=== PATIENT | male | born 1960 | race Caucasian/White ===

== ENCOUNTER 2017-09-14 16:46 | Inpatient (IN) ==
--- NOTE | 2017-09-14 17:09 | Emergency Department Note ---
Disposition Clinical Impression: Cellulitis of left leg Disposition: Admitted As Inpatient Condition: Fair Referrals: Marquis Kwok MD [Primary Care Provider] - Forms: ED Satisfaction Letter Time of Disposition: 20:08 Extremity Problem HPI - General Chief complaint: ED Extremity Problem,Nontraumatic Stated complaint: Left leg is infected with green D/C Time Seen by Provider: 09/14/17 17:01 Source: patient, family Mode of arrival: ambulatory Limitations: no limitations Nursing Notes Reviewed: Yes Vital Signs Reviewed: Yes - History of Present Illness HPI Narrative: 57-year-old who presents with swelling to left greater than right lower extremity with redness and drainage from a wound on the left leg. He was seen at though wound clinic 2 days ago. States the drainage and redness has gotten worse. Pt Subjective Complaint: extremity pain, extremity swelling Onset (ago): day(s) Consistency: constant Injury Location: left, right, lower extremity Pain Scale: 4 Improves with: nothing Worsens with: palpation Associated symptoms: Reports: denies other symptoms - Related Data Home Medications Medication Instructions Recorded Confirmed Amlodipine Besylate 20 mg PO BID 12/27/15 09/11/17 Aspirin 325 mg PO DAILY 12/27/15 09/11/17 Atorvastatin [Lipitor] 40 mg PO HS 12/27/15 09/11/17 Enalapril Maleate [Vasotec] 20 mg PO BID 12/27/15 09/11/17 Furosemide [Lasix] 20 mg PO DAILY 12/27/15 09/11/17 Metoprolol [Lopressor] 25 mg PO BID 12/27/15 09/11/17 metFORMIN [Glucophage] 1,000 mg PO BIDWM 12/27/15 09/11/17 Previous Rx's Medication Instructions Recorded Compression Socks, Medium [Futuro 1 each MC QDPC #1 each 06/07/17 Restoring] Allergies Allergy/AdvReac Type Severity Reaction Status Date / Time acetaminophen [From Percocet] AdvReac Itching Verified 09/11/17 10:23 Oxycodone [From Percocet] AdvReac Itching Verified 09/11/17 10:23 All systems ED: reviewed and negative except as stated. Constitutional: Denies: fever, chills, weakness, weight change Eyes: Denies: eye pain, eye discharge, vision change ENT ED: Denies: ear pain, throat pain, dental pain, hearing loss, epistaxis, congestion, dysphagia Cardiovascular: Denies: chest pain, palpitations, dyspnea on exertion, edema, syncope Respiratory: Denies: cough, dyspnea, wheezes, hemoptysis, stridor Gastrointestinal: Denies: abdominal pain, nausea, vomiting, diarrhea, constipation, hematemesis, melena, hematochezia Genitourinary: Denies: urgency, dysuria, frequency, hematuria Musculoskeletal: Denies: back pain, neck pain, arthralgia, myalgia Integumentary: Reports: rash, other (An anterior left leg). Denies: abrasion, lesions Neurological: Denies: headache, weakness, numbness, paresthesias, confusion, abnormal gait, vertigo Psychiatric: Denies: anxiety, depression, suicidal thoughts, homicidal thoughts , auditory hallucinations, visual hallucinations Endocrine: Denies: fatigue Hematological/Lymphatic: Denies: easy bleeding, easy bruising Allergic/Immunologic: Denies: facial swelling, urticaria Past Medical History - Past Medical History Medical history: Reports: CHF, COPD, diabetes, GERD, hyperlipidemia, hypertension, myocardial infarction Surgical history: Reports: angioplasty/stent, orthopedic, other, other Psychiatric history: Reports: no psych history - Social History Smoking Status: Current every day smoker Smokeless Tobacco Status: No Alcohol use: Reports: none Drug use: Reports: none Physical Exam - General Limitations: no limitations General appearance: alert - Head Head exam: atraumatic, normocephalic, normal inspection - Eye Eye exam: Present: normal appearance, PERRL, EOMI - ENT ENT exam: normal exam, normal oropharynx, mucous membranes moist - Neck Neck exam: Present: normal inspection, full ROM, trachea midline - Chest Chest inspection: Present: normal inspection, symmetric chest wall rise - Respiratory Respiratory exam: Present: normal lung sounds bilaterally - Cardiovascular Cardiovascular exam: Present: regular rate, normal rhythm, normal heart sounds - Abdominal Exam Abdominal exam: Present: soft, Non-Tender. Absent: tenderness, distention, guarding, rebound, rigidity - Expanded Lower Extremity Exam Lower leg exam: Present: swelling, erythema, other (Open wound draining green material on the left lower extremity.) Neurovascular/Tendon exam: Absent: motor deficit, sensory deficit, tendon deficit Gait: observed and normal - Back Exam Back exam: Present: normal inspection, full ROM. Absent: tenderness - Neurological Exam Neurological exam: Present: alert, oriented X3 - Psychiatric Psychiatric exam: Present: normal affect, normal mood - Skin Skin exam: Present: warm, dry, intact, normal color Course - Reevaluation(s) Reevaluation #1: 57-year-old diabetic with redness of the legs gotten progressively worse workup here included culture Doppler which was negative. Her admit for IV antibiotics. Time: 20:08 - Consultations Consultation #1: Discussed with Dr. yAon, admit. Time: 20:09 Vital Signs Temperature 98 F 09/14/17 16:48 Pulse Rate 113 09/14/17 16:48 Respiratory Rate 18 09/14/17 16:48 Blood Pressure 176/81 09/14/17 16:48 O2 Sat by Pulse Oximetry 97 09/14/17 16:48 Temperature 98 F 09/14/17 16:48 Pulse Rate 113 09/14/17 16:48 Respiratory Rate 18 09/14/17 16:48 Blood Pressure 176/81 09/14/17 16:48 O2 Sat by Pulse Oximetry 97 09/14/17 16:48 Oxygen Delivery Oxygen Delivery Room Air Extremity Problem, Nontraumati - Lab Data Lab results reviewed: Yes I reviewed the patient's lab results. Result diagrams: 09/14/17 17:32 09/14/17 18:36 Lab Results 09/14/17 09/14/17 09/14/17 Range/Units 17:32 17:32 17:32 WBC 9.8 (4.3-11.1) K/mcL RBC 5.99 H (4.19-5.50) M/mcL Hgb 16.5 (12.9-16.9) g/dL Hct 51.4 H (37.5-50.1) % MCV 85.8 (83.0-100.0) fL MCH 27.5 L (28.0-33.3) pg MCHC 32.1 (31.6-35.5) g/dL RDW 17.7 H (11.5-14.5) % Plt Count 290 (140-400) K/mcL MPV 10.0 (9.4-12.4) fL Immature Gran % 0.5 (0-4) % Seg Neutrophils % 75.5 % Lymphocytes % 13.8 % Monocytes % 6.2 % Eosinophils % 3.5 % Basophils % 0.5 % Neutrophils # 7.4 (1.6-8.9) K/mcL Lymphocytes # 1.4 (0.6-4.6) K/mcL Monocytes # 0.6 (0.0-1.3) K/mcL Eosinophils # 0.3 (0.0-0.6) K/mcL Basophils # 0.1 (0.0-0.2) K/mcL Immature Plt Fraction 5.2 (1.1-6.1) % ESR 34 H (0-10) mm/hr Sodium (136-145) mEq/L Potassium (3.5-5.1) mEq/L Chloride (98-107) mEq/L Carbon Dioxide (23-29) mEq/L BUN (6-20) mg/dL Creatinine (0.70-1.30) mg/dL Est GFR ( Amer) (> 60) Est GFR (Non-Af Amer) (> 60) BUN/Creatinine Ratio (6-26) Glucose (70-105) mg/dL Calculated Osmolality (280-300) Calcium (8.6-10.3) mg/dL Specimen Rejected Hemolyzed 09/14/17 Range/Units 18:36 WBC (4.3-11.1) K/mcL RBC (4.19-5.50) M/mcL Hgb (12.9-16.9) g/dL Hct (37.5-50.1) % MCV (83.0-100.0) fL MCH (28.0-33.3) pg MCHC (31.6-35.5) g/dL RDW (11.5-14.5) % Plt Count (140-400) K/mcL MPV (9.4-12.4) fL Immature Gran % (0-4) % Seg Neutrophils % % Lymphocytes % % Monocytes % % Eosinophils % % Basophils % % Neutrophils # (1.6-8.9) K/mcL Lymphocytes # (0.6-4.6) K/mcL Monocytes # (0.0-1.3) K/mcL Eosinophils # (0.0-0.6) K/mcL Basophils # (0.0-0.2) K/mcL Immature Plt Fraction (1.1-6.1) % ESR (0-10) mm/hr Sodium 139 (136-145) mEq/L Potassium 4.0 (3.5-5.1) mEq/L Chloride 102 (98-107) mEq/L Carbon Dioxide 33 H (23-29) mEq/L BUN 12 (6-20) mg/dL Creatinine 0.72 (0.70-1.30) mg/dL Est GFR ( Amer) > 60 (> 60) Est GFR (Non-Af Amer) > 60 (> 60) BUN/Creatinine Ratio 17 (6-26) Glucose 90 (70-105) mg/dL Calculated Osmolality 287 (280-300) Calcium 9.2 (8.6-10.3) mg/dL Specimen Rejected - Radiology Data Radiology results reviewed: Yes I reviewed the patient's radiology results. Tibia/Fibula X-Ray 09/14/17 17:01 IMPRESSION: Diffuse soft tissue swelling. No acute osseous abnormality. D/ / Christophe Larson MD / Christophe Larson MD Interpreting Provider: Christophe Larson MD
[2017-09-14 18:06] LABS: Basophils # 0.1 K/mcL (0.0-0.2); Basophils % 0.5 %; Eosinophils # 0.3 K/mcL (0.0-0.6); Eosinophils % 3.5 %; Hematocrit 51.4 % (37.5-50.1); Hemoglobin 16.5 g/dL (12.9-16.9); Immature Granulocytes % 0.5 % (0-4); Immature Platelets 5.2 % (1.1-6.1); Lymphocytes # 1.4 K/mcL (0.6-4.6); Lymphocytes % 13.8 %; Mean Corpuscular HGB Conc 32.1 g/dL (31.6-35.5); Mean Corpuscular Hemoglobin 27.5 pg (28.0-33.3); Mean Corpuscular Volume 85.8 fL (83.0-100.0); Monocytes # 0.6 K/mcL (0.0-1.3); Monocytes % 6.2 %; Neutrophils # 7.4 K/mcL (1.6-8.9); Platelet Count 290 K/mcL (140-400); Red Blood Count 5.99 M/mcL (4.19-5.50); Red Cell Distribution Width 17.7 % (11.5-14.5); Segmented Neutrophils % 75.5 %
[2017-09-14 19:08] LABS: BUN/Creatinine Ratio 17 (6-26); Blood Urea Nitrogen 12 mg/dL (6-20); Calcium 9.2 mg/dL (8.6-10.3); Carbon Dioxide 33 mEq/L (23-29); Chloride 102 mEq/L (98-107); Glucose 90 mg/dL (70-105); Osmolality,Calculated 287 (280-300); Sodium 139 mEq/L (136-145); eGFR For African Americans > 60 (> 60); eGFR For Non-African Americans > 60 (> 60)
[2017-09-14] MEDS ORDERED: Piperacillin/Tazobactam 3.375 GM in 0.9 % Sodium Chloride Mini Bag 100 ML IVPB ONE (20:20)
[2017-09-14] MEDS ORDERED: Acetaminophen 325 MG TABLET PO PRN (23:39)
[2017-09-14] MEDS ORDERED: Naloxone 0.4 MG/ML INJ IVP PRN (23:39)
[2017-09-14] MEDS ORDERED: 0.9 % Sodium Chloride 1,000 ML IVC SCH (23:45)
--- NOTE | 2017-09-14 23:45 | Internal Med History&Physical ---
Date of Encounter: 09/15/17 Time of Encounter: 23:45 Assessment and Plan (1) Cellulitis of left leg Current visit: Yes Status: Acute 57/male Known to have a multiple comorbid conditions. Evaluated 2 days back for his left leg cellulitis in the wound care clinic as outpatient. Patient failed outpatient oral antibiotics trial. On examination: Purulent discharge greenish yellow in color from the left lower extremity wound. Occasional polyphonic rhonchi heard. Assessment: Left lower leg cellulitis/wound which has failed outpatient oral antibiotics. Patient needs intravenous antibiotics. Plan: Admit as inpatient. Diabetic diet. Intravenous vancomycin: Pharmacy to adjust the dose. Intravenous Zosyn. Surgical consult for possible debridement. Wound care consult. Close monitoring of the patient. Plan of care discussed with the patient. (2) COPD (chronic obstructive pulmonary disease) Current visit: No Status: Acute Stable for now Qualifiers: COPD type: COPD with acute exacerbation Qualified Code(s): J44.1 - Chronic obstructive pulmonary disease with (acute) exacerbation (3) Diabetes mellitus Current visit: No Status: Acute Patient is noncompliant with his diabetic medications. We will continue recommendations from subcutaneous insulin order set. Qualifiers: Diabetes mellitus type: type 2 Diabetes mellitus complication status: with unspecified complications Diabetes mellitus care home insulin use: without ferry terminal agent use Qualified Code(s): E11.8 - Type 2 diabetes mellitus with unspecified complications (4) Hypertension Current visit: No Status: Acute Patient's blood pressure is very well controlled. We will resume home medications. Qualifiers: Hypertension type: essential hypertension Qualified Code(s): I10 - Essential (primary) hypertension (5) DVT prophylaxis Current visit: No Status: Acute Heparin Decision-making: This patient has a moderate to severe risk of worsening in spite of being on appropriate medication due to the underlying chronic comorbid conditions Internal Medicine - H&P: HPI Chief complaint: Left extremity pain Admitted From: Emergency Dept Plans for Post Hospital Care: Home History of present illness: PCP: Dr. Kwok History of past medical illness: Diabetes, hypertension, dyslipidemia, COPD, hypertension, coronary artery disease, peripheral vascular disease History of present medical illness: Patient was complaining of worsening purulent discharge from the left extremity. Patient is known to have a wound on his left extremity for more than one week. Patient was evaluated in the wound care clinic 2 days back. Patient claims that since last 24-36 hours the discharge from the wound is getting yellowish-green in color. Patient has a bilateral edema feet. Left is worse than right. In view of this persistent new green coloration of the discharge patient was concerned and that is the reason he came to emergency room for further evaluation. Patient denies chest pain, nausea, vomiting, abdominal pain, dizziness and diarrhea. Workup in the emergency room: Patient was evaluated in the emergency room. X- ray of left extremity did not show any obvious osteomy. Osteoarthritis. Reason for admission: Failed outpatient oral antibiotic treatment. Patient needs intravenous antibiotics. Past Med Surg Social Fam HX - Past Medical History Medical history: CHF, COPD, diabetes, GERD, hyperlipidemia, hypertension, myocardial infarction Psychiatric history: no psych history - Past Surgical History Surgical History: angioplasty/stent, orthopedic, other, other - Social History Smoking Status: Current every day smoker Smokeless Tobacco Status: No Alcohol use: none Drug use: none - Family History Father Adopted: No Family Member Ethnicity: Non- Living Status: Hx Family Cardiac Disorders: Yes (Heart fAILURE) Hx Family Respiratory Disorders: No Hx Family Cancer: No Hx Family GI Disorders: No Hx Family Endocrine Disorder: Yes (Diabetic) Hx Family Neuromuscular Disorders: No Hx Family Neurologic Disorders: No Hx Family HEENT Disorders: No Hx Family Autoimmune Disorders: No Mother Family Member Ethnicity: Non- Living Status: Hx Family Cardiac Disorders: Yes (CHF) Hx Family Respiratory Disorders: No Hx Family Cancer: Yes (breast) Hx Family GI Disorders: No Hx Family Endocrine Disorder: No Hx Family Neuromuscular Disorders: No Hx Family Neurologic Disorders: Yes (Dementia) Hx Family HEENT Disorders: No Hx Family Autoimmune Disorders: No Internal Medicine - H&P: Meds Amlodipine Besylate 20 mg PO BID 12/27/15 [History] Aspirin 325 mg PO DAILY 12/27/15 [History] Atorvastatin [Lipitor] 40 mg PO HS 12/27/15 [History] Enalapril Maleate [Vasotec] 20 mg PO BID 12/27/15 [History] Furosemide [Lasix] 20 mg PO DAILY 12/27/15 [History] Metoprolol [Lopressor] 25 mg PO BID 12/27/15 [History] metFORMIN [Glucophage] 1,000 mg PO BIDWM 12/27/15 [History] Compression Socks, Medium [Futuro Restoring] 1 each MC QDPC #1 each 06/07/17 [Rx ] 3 Allergy/AdvReac Type Severity Reaction Status Date / Time acetaminophen [From Percocet] AdvReac Itching Verified 09/11/17 10:23 Oxycodone [From Percocet] AdvReac Itching Verified 09/11/17 10:23 All Systems PM: A 10-system review of systems was performed and is negative for pertinent findings except as documented above in the HPI. - Constitutional Constitutional: no chills, no fever(s), no night sweats - EENT Eyes: no change in vision, no discharge, no pain, no photophobia Ears: no ear discharge, no ear pain, no tinnitus Nose, mouth and throat: no dysphagia, no nasal discharge, no neck pain, no sore throat - Cardiovascular Cardiovascular ROS IM: no chest pain, no diaphoresis, no dyspnea, no lightheadedness, no palpitations, no syncope - Respiratory Respiratory: no cough, no dyspnea, no wheezing, no excessive phlegm production - Gastrointestinal Gastrointestinal: no abdominal pain, no diarrhea, no hematemesis, no hematochezia, no melena, no nausea, no vomiting - Musculoskeletal Musculoskeletal ROS IM: no numbness, no tingling - Integumentary Integumentary IM: no rash, no unusual bruising - Neurological Neurological ROS: no confusion, no convulsions, no focal weakness, no numbness, no tingling, no tremor(s) - Hematologic/Lymphatic Hematologic/Lymphatic: no easy bruising - Constitutional Vitals: Temp Pulse Resp BP Pulse Ox 98.2 F 96 16 150/84 84 09/14/17 22:37 09/14/17 22:37 09/14/17 22:37 09/14/17 22:37 09/14/17 22:37 General appearance: Present: A&O X 3, pleasant, no acute distress, answers questions appropriately - Head Head exam: Present: atraumatic, normocephalic - Eye Eye exam: Present: PERRL, conjuntiva pink, sclera anicteric Pupils: Present: PERRL - Neck Neck exam general surgery: Present: supple, trachea midline. Absent: lymphadenopathy - Respiratory Respiratory exam: Present: CTAB. Absent: accessory muscle use, rales, rhonchi, wheezes - Cardiovascular Cardiovascular exam: Present: RRR, +S1, +S2. Absent: diastolic murmur, gallop, rubs, systolic murmur - GI/Abdominal GI/Abdominal exam: Present: normal bowel sounds, soft, no peritoneal signs. Absent: distended, tenderness - Extremities Exam Extremities exam: Present: warm, radial pulses palpable and symmetrical. Absent : calf tenderness, cyanotic, pedal edema Additional comments: Patient is a left lower extremity open wound. - Neurological Exam Neurological exam: Present: CN II-XII intact, oriented X3, no focal deficits. Absent: pronater drift, facial droop, speech deficit - Skin Skin exam: Present: dry, intact Internal Med - H&P Results - Labs CBC & Chem 7: 09/15/17 01:00 09/15/17 01:00
[2017-09-14] MEDS ORDERED: Dextrose Gel 15 GM/37.5 ML TUBE PO PRN ×2 (23:48)
[2017-09-14] MEDS ORDERED: *HR* Dextrose 50 % in Water (Syg) 50 ML SYRINGE IVP PRN (23:48)
[2017-09-14] MEDS ORDERED: D5% in Water 1,000 ML IVC PRN (23:48)
[2017-09-15 02:01] LABS: Basophils # 0.1 K/mcL (0.0-0.2); Basophils % 0.5 %; Eosinophils # 0.3 K/mcL (0.0-0.6); Hematocrit 52.7 % (37.5-50.1); Hemoglobin 16.3 g/dL (12.9-16.9); Immature Granulocytes % 0.5 % (0-4); Lymphocytes # 1.4 K/mcL (0.6-4.6); Lymphocytes % 12.2 %; Mean Corpuscular HGB Conc 30.9 g/dL (31.6-35.5); Mean Corpuscular Hemoglobin 27.1 pg (28.0-33.3); Mean Corpuscular Volume 87.5 fL (83.0-100.0); Mean Platelet Volume 10.4 fL (9.4-12.4); Monocytes # 0.8 K/mcL (0.0-1.3); Monocytes % 7.1 %; Neutrophils # 8.5 K/mcL (1.6-8.9); Platelet Count 290 K/mcL (140-400); Red Blood Count 6.02 M/mcL (4.19-5.50); Red Cell Distribution Width 17.6 % (11.5-14.5); Segmented Neutrophils % 76.7 %
[2017-09-15 02:08] LABS: INR 1.2; Prothrombin Time 12.7 Seconds (9.4-12.1)
[2017-09-15 02:10] LABS: Activated Partial Thrombo Time 24.8 Seconds (26.0-36.0)
[2017-09-15 02:35] LABS: Alanine Aminotransferase 12 Units/L (7-52); Albumin/Globulin Ratio 1.1 (1.1-2.2); Alkaline Phosphatase 107 Units/L (34-104); Aspartate Amino Transferase 14 Units/L (13-39); BUN/Creatinine Ratio 16 (6-26); Bilirubin,Total 0.7 mg/dL (0.3-1.0); Blood Urea Nitrogen 11 mg/dL (6-20); Calcium 9.4 mg/dL (8.6-10.3); Carbon Dioxide 31 mEq/L (23-29); Chloride 102 mEq/L (98-107); Chol/HDL Ratio 3.9 (0-4.9); Cholesterol 97 mg/dL (< 200); Globulin 3.5 g/dL (2.4-3.5); Glucose 86 mg/dL (70-105); HDL Cholesterol 25 mg/dL (40-59); LDL Cholesterol,Calculated 56 mg/dL (0-99); Magnesium 1.8 mg/dL (1.6-2.6); Osmolality,Calculated 289 (280-300); Potassium 3.9 mEq/L (3.5-5.1); Sodium 140 mEq/L (136-145); Total Protein 7.5 g/dL (6.4-8.9); Triglycerides 78 mg/dL (< 150); eGFR For African Americans > 60 (> 60); eGFR For Non-African Americans > 60 (> 60)
[2017-09-15] MEDS: *HR* Heparin 5,000 UNIT/ML VIAL SQ SCH ×4 (04:07→23:16)
[2017-09-15] MEDS: Insulin LISPRO 300 UNITS/3 ML VIAL SQ SCH ×3 (08:10→16:16)
[2017-09-15] MEDS ORDERED: AMLODIPINE BESYLATE 20 MG PO SCH (09:00)
[2017-09-15] MEDS ORDERED: Aspirin 81 MG TAB.CHEW PO SCH (09:00)
[2017-09-15] MEDS: Aspirin 325 MG TABLET PO SCH (09:04)
[2017-09-15] MEDS: Lisinopril 20 MG TABLET PO SCH ×2 (09:04→20:10)
[2017-09-15] MEDS: Furosemide 20 MG TABLET PO SCH (09:04)
--- NOTE | 2017-09-15 10:24 | Internal Med Progress Note ---
Date of Encounter: 09/15/17 Time of Encounter: 10:20 - Assessment and plan (1) Cellulitis of left leg Current Visit: Yes Status: Acute Assessment and plan: Bilateral lower extremity cellulitis, failed outpatient treatment with Augmentin and Keflex. We will continue IV vancomycin and Zosyn. He had negative DVT from Doppler on September 14. We will continue Lasix for lower extremity edema (2) COPD (chronic obstructive pulmonary disease) Current Visit: No Status: Acute Assessment and plan: Chronic hypoxic respiratory failure from COPD on 2 L nasal cannula at home. Currently no active wheezing, stable Qualifiers: COPD type: COPD with acute exacerbation Qualified Code(s): J44.1 - Chronic obstructive pulmonary disease with (acute) exacerbation (3) Diabetes mellitus Current Visit: No Status: Acute Assessment and plan: Home medications and a sliding scale Qualifiers: Diabetes mellitus type: type 2 Diabetes mellitus complication status: with unspecified complications Diabetes mellitus fpc insulin use: without termite technician use Qualified Code(s): E11.8 - Type 2 diabetes mellitus with unspecified complications (4) Hypertension Current Visit: No Status: Acute Assessment and plan: BP is well controlled to continue home medication Qualifiers: Hypertension type: essential hypertension Qualified Code(s): I10 - Essential (primary) hypertension (5) DVT prophylaxis Current Visit: No Status: Acute Assessment and plan: heparin SC, doppler was negative for DVT (6) CAD (coronary artery disease) Current Visit: No Status: Chronic Assessment and plan: Continue home medication Qualifiers: Coronary Disease-Associated Artery/Lesion type: [place] artery [place] vs. transplanted heart: [place] heart Associated angina: without angina Qualified Code(s): I25.10 - Atherosclerotic heart disease of [place] coronary artery without angina pectoris - Time Spent With Patient 25 - 35 minutes - Subjective Interval history: History of past medical illness: Diabetes, hypertension, dyslipidemia, COPD, hypertension, coronary artery disease, peripheral vascular disease Patient was complaining of worsening purulent discharge from the left extremity. Patient is known to have a wound on his left extremity for more than one week. Patient was evaluated in the wound care clinic 2 days back he was placed on augmentin and keflex, failed moutpatient treatment. Patient claims that since last 24-36 hours the discharge from the wound is getting yellowish-green in color. Patient has a bilateral edema feet. Patient waas admitted for b/l leg cellulitis Patient is doing okay, afebrile. Patient reported that she has worsening bilateral lower extremity edema over the last 2 weeks. She he has COPD on 2 L nasal cannula at home and limited mobility. patient had negative Doppler and ruled out DVT. We will continue IV Zosyn and vancomycin for lower extremity cellulitis. Wound care also already consult.. - Constitutional Vitals: Temp Pulse Resp BP Pulse Ox 98.4 F 91 18 144/82 90 09/15/17 06:45 09/15/17 06:45 09/15/17 06:45 09/15/17 06:45 09/15/17 06:45 General appearance: Present: A&O X 3, pleasant, no acute distress, answers questions appropriately Exam: CONSTITUTIONAL: patient appears as an age appropriate male in no acute distress. EYES Clear sclerae, bilateral pupils are equal, reactive to light. EMOI. RESPIRATORY: No accessory muscle use, bilateral clear to auscultation, no wheezing, no crackles/rales. CARDIOVASCULAR: Regular heart rate, normal S1 and S2, no murmurs GASTROINTESTINAL: bowel sounds present, soft, no tenderness. MUSCULOSKELETAL: Joints in normal range of motion, no clubbing, +++ edema and redness, no cyanosis. Bilateral peripheral pulses 2+. NEUROLOGIC: CN II to XII are grossly intact, no focal neurological deficit. Internal Medicine: Result - Labs CBC & Chem 7: 09/15/17 01:00 09/15/17 01:00 Labs: Short CBC 09/15/17 Range/Units 01:00 WBC 11.1 (4.3-11.1) K/mcL Hgb 16.3 (12.9-16.9) g/dL Hct 52.7 H (37.5-50.1) % Plt Count 290 (140-400) K/mcL Neutrophils # 8.5 (1.6-8.9) K/mcL BMP 09/15/17 01:00 Sodium 140 Potassium 3.9 Chloride 102 Carbon Dioxide 31 H BUN 11 Creatinine 0.68 L Glucose 86 Calcium 9.4 Cardiac Enzymes 09/15/17 09/15/17 Range/Units 01:00 05:34 Troponin I < 0.03 < 0.03 (< 0.04) ng/mL Liver Function 09/15/17 Range/Units 01:00 Total Bilirubin 0.7 (0.3-1.0) mg/dL AST 14 (13-39) Units/L ALT 12 (7-52) Units/L Alkaline Phosphatase 107 H (34-104) Units/L Albumin 4.0 (3.5-5.7) g/dL - ABG Interpretation ABG results: PT/INR, D-dimer PT 12.7 Seconds (9.4-12.1) H 09/15/17 01:00 Consult Discharge Plan - Plan Referrals: Marquis Kwok MD [Primary Care Provider] -
[2017-09-16] MEDS: *HR* Heparin 5,000 UNIT/ML VIAL SQ SCH ×2 (07:29→16:04)
[2017-09-16] MEDS: Insulin LISPRO 300 UNITS/3 ML VIAL SQ SCH ×3 (07:29→18:28)
[2017-09-16] MEDS: Furosemide 20 MG TABLET PO SCH (07:30)
[2017-09-16] MEDS: Lisinopril 20 MG TABLET PO SCH ×2 (07:30→22:03)
[2017-09-16] MEDS: Aspirin 325 MG TABLET PO SCH (07:30)
--- NOTE | 2017-09-16 17:26 | Internal Med Progress Note ---
Date of Encounter: 09/16/17 Time of Encounter: 12:45 - Assessment and plan (1) Cellulitis of left leg Current Visit: Yes Status: Acute Assessment and plan: Somewhat improving. Continue broad spectrum antibiotics- vancomycin and Zosyn. Lower extremity elevation. Local wound care for left leg ulcer with silver calcium alginate, dry dressing. Supportive care. Preliminary Wound culture grows staph aureus, follow up final culture. (2) COPD (chronic obstructive pulmonary disease) Current Visit: Yes Status: Chronic Assessment and plan: Not in acute exacerbation. Continue bronchodilators, inhaled corticosteroids and supplemental oxygen. Patient is being provided with a prescription for concentrator and portable home oxygen. Qualifiers: COPD type: unspecified COPD Qualified Code(s): J44.9 - Chronic obstructive pulmonary disease, unspecified (3) Diabetes mellitus Current Visit: Yes Status: Chronic Assessment and plan: Blood sugars noted to be well controlled. Continue Accu-Chek blood glucose monitoring with sliding scale insulin. Diabetic diet. Qualifiers: Diabetes mellitus type: type 2 Diabetes mellitus complication status: with unspecified complications Diabetes mellitus [facility] insulin use: without technician terminal and repeater use Qualified Code(s): E11.8 - Type 2 diabetes mellitus with unspecified complications (4) Hypertension Current Visit: Yes Status: Chronic Qualifiers: Hypertension type: essential hypertension Qualified Code(s): I10 - Essential (primary) hypertension (5) Venous ulcer of left leg Current Visit: Yes Status: Chronic Assessment and plan: Follows with wound care clinic. (6) CAD (coronary artery disease) Current Visit: Yes Status: Chronic Qualifiers: Coronary Disease-Associated Artery/Lesion type: [place] artery [place] vs. transplanted heart: [place] heart Associated angina: without angina Qualified Code(s): I25.10 - Atherosclerotic heart disease of [place] coronary artery without angina pectoris - Subjective Interval history: Reports feeling better. Improving redness and pain in right leg. No fever, chills, shortness of breath, vomiting or diarrhea. - Constitutional Vitals: Temp Pulse Resp BP Pulse Ox 98.7 F 94 18 134/73 90 09/16/17 15:39 09/16/17 15:39 09/16/17 15:39 09/16/17 15:39 09/16/17 15:39 General appearance: Present: A&O X 3, pleasant, no acute distress, answers questions appropriately Exam: Erythematous confluent hives on the right maxillary and mandibular areas of face - Respiratory Respiratory exam: Present: CTAB (Bilateral coarse breath sounds, scattered rhonchi). Absent: accessory muscle use, rales, rhonchi, wheezes - Cardiovascular Cardiovascular exam: Present: RRR, +S1, +S2. Absent: diastolic murmur, gallop, rubs, systolic murmur - GI/Abdominal GI/Abdominal exam: Present: normal bowel sounds, soft, no peritoneal signs. Absent: distended, tenderness - Extremities Exam Extremities exam: Present: full ROM, pedal edema, warm, radial pulses palpable and symmetrical. Absent: calf tenderness, cyanotic Additional comments: Bilateral 3+ pitting pedal edema, erythema and warmth over her anterior legs along with dry flaky skin Left leg-distal anterior area with dry small venous ulcer - Neurological Exam Neurological exam: Present: CN II-XII intact, oriented X3, no focal deficits. Absent: pronater drift, facial droop, speech deficit Internal Medicine: Result - Labs CBC & Chem 7: 09/15/17 01:00 09/15/17 01:00 - ABG Interpretation ABG results: PT/INR, D-dimer PT 12.7 Seconds (9.4-12.1) H 09/15/17 01:00 Consult Discharge Plan - Plan Referrals: Marquis Kwok MD [Primary Care Provider] -
[2017-09-17] MEDS: *HR* Heparin 5,000 UNIT/ML VIAL SQ SCH ×2 (00:37→08:42)
[2017-09-17] MEDS ORDERED: Ibuprofen 800 MG TABLET PO PRN (05:49)
[2017-09-17] MEDS: Aspirin 325 MG TABLET PO SCH (08:41)
[2017-09-17] MEDS: Lisinopril 20 MG TABLET PO SCH (08:41)
[2017-09-17] MEDS: Furosemide 20 MG TABLET PO SCH (08:42)
[2017-09-17] MEDS: Insulin LISPRO 300 UNITS/3 ML VIAL SQ SCH ×2 (08:42→11:32)
[2017-09-17 11:02] VITALS: BP 136/75
--- NOTE | 2017-09-17 12:34 | Discharge Summary ---
- NOTES TO OUTPATIENT PROVIDER Notes to Outpatient Provider: F/up B/L leg cellulitis clinically; right facial rash ?allergy to cephalosporins/PCN Orders not resulted at time of discharge: Pending orders 09/14/17 23:48 Culture,Blood [BC] Routine Culture,Blood,Additional [BC] Routine 09/18/17 04:00 Creatinine AM 0400 Date of Encounter: 09/17/17 Time of Encounter: 12:32 - Discharge Diagnosis (1) Cellulitis of left leg Priority: Primary Status: Acute (2) COPD (chronic obstructive pulmonary disease) Priority: Secondary Status: Chronic Qualifiers: COPD type: unspecified COPD Qualified Code(s): J44.9 - Chronic obstructive pulmonary disease, unspecified (3) Diabetes mellitus Priority: Secondary Status: Chronic Qualifiers: Diabetes mellitus type: type 2 Diabetes mellitus complication status: with unspecified complications Diabetes mellitus mcc insulin use: without mcc use Qualified Code(s): E11.8 - Type 2 diabetes mellitus with unspecified complications (4) Hypertension Priority: Secondary Status: Chronic Qualifiers: Hypertension type: essential hypertension Qualified Code(s): I10 - Essential (primary) hypertension (5) Venous ulcer of left leg Priority: Secondary Status: Chronic (6) CAD (coronary artery disease) Priority: Secondary Status: Chronic Qualifiers: Coronary Disease-Associated Artery/Lesion type: [place] artery [place] vs. transplanted heart: unga heart Associated angina: without angina Qualified Code(s): I25.10 - Atherosclerotic heart disease of un[place] coronary artery without angina pectoris Hospital course: Mr. Bonilla is a 57 year old male with the above medical problems, who was admitted with bilateral leg swelling, redness and pain. He was noted to have cellulitis in bilateral legs, left more than right associated with chronic left leg venous ulcer. He reportedly had purulent discharge at the time of admission. He was started on broad-spectrum IV antibiotics-vancomycin and Zosyn. Wound culture eventually grew MRSA. Wound remained dry upon my evaluation and cellulitis has improved. Bilateral lower extremity venous Doppler showed no DVT. Patient is currently medically stable for discharge on oral Bactrim. He is encouraged to follow up in Wound Care clinic for left leg ulcer. He also has right face rash, which could be ?drug reaction to antibiotics, however he tolerated PCNS well while in the hospital. Discharge discussed with: patient - Time Spent with Patient Total time spent providing and/or coordinating discharge services: Greater than 30 minutes (45 min) - Discharge Medications Prescriptions: Doxycycline 100 mg PO BID #14 capsule Home Medications: Aspirin 325 mg PO DAILY 12/27/15 [History] Atorvastatin [Lipitor] 40 mg PO HS 12/27/15 [History] Enalapril Maleate [Vasotec] 20 mg PO BID 12/27/15 [History] Furosemide [Lasix] 20 mg PO DAILY 12/27/15 [History] Metoprolol [Lopressor] 25 mg PO BID 12/27/15 [History] metFORMIN [Glucophage] 1,000 mg PO BIDWM 12/27/15 [History] Glimepiride [Amaryl] 2 mg PO DAILY 09/15/17 [History] Tamsulosin [Flomax] 0.4 mg PO DAILY 09/15/17 [History] Doxycycline 100 mg PO BID #14 capsule 09/17/17 [Rx] Allergies/Adverse Reactions: 3 Allergy/AdvReac Type Severity Reaction Status Date / Time acetaminophen [From Percocet] AdvReac Itching Verified 09/11/17 10:23 Oxycodone [From Percocet] AdvReac Itching Verified 09/11/17 10:23 Date of admission: 09/14/17 21:39 Primary care physician: Marquis Kwok MD Discharging clinician: Chetna Monique Anticipated date of discharge: 09/17/17 - Constitutional Vitals: Temp Pulse Resp BP Pulse Ox 98.1 F 74 17 136/75 90 09/17/17 11:00 09/17/17 11:00 09/17/17 11:00 09/17/17 11:00 09/17/17 11:00 General appearance: Present: A&O X 3, morbidly obese, pleasant, answers questions appropriately - Cardiovascular Cardiovascular exam: Present: RRR, +S1, +S2. Absent: diastolic murmur, gallop, rubs, systolic murmur - Extremities Exam Extremities exam: Present: warm, radial pulses palpable and symmetrical. Absent : calf tenderness, cyanotic, pedal edema Additional comments: improving erythema, warmth, induration and tenderness over B/L anterior legs; chronic venous ulcer on left distal leg stable; - Patient Status Disposition: Home, Self-Care Condition: Fair Functional capacity at discharge: independent ambulation Overall status at discharge: patient is progressing back to baseline - Discharge Instructions Instructions: Cellulitis (DC), Diabetes Mellitus Type 2 in Adults (DC), Chronic Obstructive Pulmonary Disease (DC), Chronic Hypertension (DC) Follow Up With: Marquis Kwok MD [Primary Care Provider] - 09/23/17 8:15 am Additional Instructions: F/up with wound care clinic as scheduled - Diet and Activity Activity: resume usual activities as tolerated, wear oxygen at all times Diet: diabetic diet, low fat, low cholesterol, low salt diet
[2017-09-17] MEDS ORDERED: Aminoglycoside Consult 1 EACH MC ONE (14:44)
== END 2017-09-17 14:45 | disposition home or self-care (01) | DRG 603 ==
LOC: 3ANU 16:46 → EMEROO 16:46 → SUATTDRO 21:39 → 3ANU 22:16
PROVIDERS: ADMIT Internal Medicine; ATTEND Internal Medicine

== ENCOUNTER 2018-01-13 22:54 | Inpatient (IN) ==
[2018-01-14 01:26] LABS: Basophils # 0.1 K/mcL (0.0-0.2); Basophils % 0.5 %; Eosinophils # 0.4 K/mcL (0.0-0.6); Eosinophils % 3.8 %; Hematocrit 48.4 % (37.5-50.1); Hemoglobin 15.9 g/dL (12.9-16.9); Immature Granulocytes % 0.4 % (0-4); Lymphocytes # 1.4 K/mcL (0.6-4.6); Lymphocytes % 13.3 %; Mean Corpuscular HGB Conc 32.9 g/dL (31.6-35.5); Mean Corpuscular Hemoglobin 28.9 pg (28.0-33.3); Mean Corpuscular Volume 87.8 fL (83.0-100.0); Mean Platelet Volume 9.6 fL (9.4-12.4); Monocytes # 0.7 K/mcL (0.0-1.3); Monocytes % 6.6 %; Platelet Count 259 K/mcL (140-400); Red Blood Count 5.51 M/mcL (4.19-5.50); Red Cell Distribution Width 17.2 % (11.5-14.5); Segmented Neutrophils % 75.4 %
--- NOTE | 2018-01-14 01:43 | Emergency Department Note ---
Disposition Clinical Impression: Cellulitis Qualifiers: Site of cellulitis: extremity Site of cellulitis of extremity: lower extremity Laterality: unspecified laterality Qualified Code(s): L03.119 - Cellulitis of unspecified part of limb CHF exacerbation Qualifiers: Heart failure type: unspecified Qualified Code(s): I50.9 - Heart failure, unspecified Disposition: Admitted As Inpatient Condition: Undetermined Referrals: Marquis Kwok MD [Primary Care Provider] - Forms: ED Satisfaction Letter Extremity Problem HPI - General Chief complaint: ED Extremity Problem,Nontraumatic Stated complaint: sore on legs Time Seen by Provider: 01/13/18 23:19 Source: patient, family Mode of arrival: private vehicle Limitations: no limitations Nursing Notes Reviewed: Yes Vital Signs Reviewed: Yes - History of Present Illness HPI Narrative: 37-year-old male with a history of COPD, diabetes, hypertension, CAD, CHF presents emergency department for bilateral lower extremity. Patient states he has had left lower extremity off and on for the last year which has been treated for a cellulitis multiple times and is also been treated with steroid creams. He states for the last couple weeks he is also had redness, swelling to right lower extremity, new symptoms also include swelling, redness, clear drainage to bilateral lower extremities. Patient denies fever and chills. However he does state increased cough and shortness of breath. Patient states recent quitting smoking. He denies any other symptoms. Pt Subjective Complaint: extremity pain, extremity swelling Onset (ago): week(s) Consistency: Worsening Injury Location: left, right, lower extremity Pain Scale: 10 Improves with: nothing Worsens with: nothing Associated symptoms: Reports: shortness of breath Context: other - Related Data Home Medications Medication Instructions Recorded Confirmed Atorvastatin [Lipitor] 40 mg PO HS 01/14/18 01/14/18 Enalapril Maleate [Vasotec] 20 mg PO BID 01/14/18 01/14/18 Furosemide [Lasix] 20 mg PO DAILY 01/14/18 01/14/18 Glimepiride [Amaryl] 2 mg PO 0800 01/14/18 01/14/18 Metoprolol Tartrate [Lopressor] 25 mg PO BID 01/14/18 01/14/18 Tamsulosin HCl [Flomax] 0.4 mg PO DAILY 01/14/18 01/14/18 Triamcinolone Acet 0.1% CRM 1 appl TP BID 01/14/18 01/14/18 [Kenalog] metFORMIN [Glucophage] 1,000 mg PO BIDWM 01/14/18 01/14/18 Allergies Allergy/AdvReac Type Severity Reaction Status Date / Time acetaminophen [From Percocet] AdvReac Itching Verified 01/13/18 23:10 Oxycodone [From Percocet] AdvReac Itching Verified 01/13/18 23:10 All systems ED: reviewed and negative except as stated. Review of Systems: As Per [facility] Past Medical History - Past Medical History Attestation: Yes The following information was validated with the patient. Source: patient Medical history: Reports: CHF, COPD, diabetes, GERD, hyperlipidemia, hypertension, myocardial infarction Surgical history: Reports: angioplasty/stent, orthopedic, other, other Psychiatric history: Reports: no psych history - Social History Smoking Status: Former smoker Smokeless Tobacco Status: No Alcohol use: Reports: none Drug use: Reports: none Physical Exam - General Limitations: no limitations General appearance: alert, in no apparent distress - Head Head exam: atraumatic, normocephalic, normal inspection - Chest Chest inspection: Present: normal inspection, symmetric chest wall rise - Respiratory Respiratory exam: Present: wheezes. Absent: respiratory distress, accessory muscle use, prolonged expiratory phase - Expanded Respiratory Exam Location: decreased breath sounds: Left, Right, Lower - Cardiovascular Cardiovascular exam: Present: regular rate, normal rhythm, normal heart sounds - Abdominal Exam Abdominal exam: Present: soft, Non-Tender. Absent: tenderness, distention, guarding, rebound, rigidity - Expanded Lower Extremity Exam 1 - Bilateral lower extremity purulent cellulitis with a serious drainage. Knee exam: Present: normal inspection, full ROM Lower leg exam: Present: full ROM, tenderness (2 cellulitic areas), swelling ( Bilateral lower exterminate his), erythema (Large purulent cellulitis noted to bilateral lower extremities). Absent: abrasion, laceration, ecchymosis, deformity, crepitus, dislocation Ankle exam: Present: normal inspection, full ROM, swelling (Pitting edema bilaterally) Foot/toe exam: Present: full ROM Neurovascular/Tendon exam: Absent: motor deficit, sensory deficit, tendon deficit Gait: observed and normal - Back Exam Back exam: Present: normal inspection, full ROM. Absent: tenderness - Neurological Exam Neurological exam: Present: alert, oriented X3 - Psychiatric Psychiatric exam: Present: normal affect, normal mood - Skin Skin exam: Present: warm, dry, intact, normal color Course Course Narrative: Nontoxic appearing male in moderate amount of distress. Patient initially came to triage with SPO2 81% on room air. Patient noted to be on 2 L nasal cannula at home and does not have a portable tank. Upon placing on 2 L in the room patient SPO2 ranging 95-97. Exam reveals lungs with wheezing, diminished breath sounds bilaterally. Bilateral lower extremity is noted with pitting edema, purulent cellulitis that is draining serious fluid to bilateral lower extremities. Vital signs reveal patient is afebrile, slightly tachycardic. Chest x-ray reveals pulmonary congestion, pleural effusion. X-ray of bilateral lower extremities without subcutaneous emphysema or signs of osteomyelitis. Patient continues to remain hypoxic with exertion, he is short of breath with exertion. Due to the hypoxia when he is ambulating. I added a BNP, VBG, and BIPap. Patient is agreeable permission hospital for cellulitis, possible CHF exacerbation. Spoke with Dr. Golden regarding plan of care, Dr. Golden is in agreement with plan of care. BNP returns normal at 27, however, pt is morbidly obese. Hospitalist and seen patient at this time, he was made aware VBG results still pending. Hospitalist success patient as an inpatient status and will follow labs at this time. Vital Signs Temperature 98.1 F 01/13/18 23:11 Pulse Rate 110 01/13/18 23:11 Respiratory Rate 22 01/13/18 23:11 Blood Pressure 197/100 01/13/18 23:11 O2 Sat by Pulse Oximetry 81 01/13/18 23:11 Temperature 98.1 F 01/13/18 23:11 Pulse Rate 87 01/14/18 02:42 Respiratory Rate 16 01/14/18 02:42 Blood Pressure 156/103 01/14/18 02:42 O2 Sat by Pulse Oximetry 92 01/14/18 02:42 Oxygen Delivery Oxygen Delivery Nasal Cannula Extremity Problem, Nontraumati - Differential Diagnosis Likely: cellulitis, lower extremity edema. Unlikely: herpes zoster, gout, superficial thrombophlebitis, deep venous thrombosis, compartment syndrome, occult trauma, septic joint, arterial vascular disorder, other - Medical Records Medical records reviewed: Yes I reviewed the patient's medical records. - Lab Data Lab results reviewed: Yes I reviewed the patient's lab results. Result diagrams: 01/14/18 01:09 01/14/18 01:09 Lab Results 01/14/18 01/14/18 01/14/18 Range/Units 01:09 01:09 01:09 WBC 10.6 (4.3-11.1) K/mcL RBC 5.51 H (4.19-5.50) M/mcL Hgb 15.9 (12.9-16.9) g/dL Hct 48.4 (37.5-50.1) % MCV 87.8 (83.0-100.0) fL MCH 28.9 (28.0-33.3) pg MCHC 32.9 (31.6-35.5) g/dL RDW 17.2 H (11.5-14.5) % Plt Count 259 (140-400) K/mcL MPV 9.6 (9.4-12.4) fL Immature Gran % 0.4 (0-4) % Seg Neutrophils % 75.4 % Lymphocytes % 13.3 % Monocytes % 6.6 % Eosinophils % 3.8 % Basophils % 0.5 % Neutrophils # 8.0 (1.6-8.9) K/mcL Lymphocytes # 1.4 (0.6-4.6) K/mcL Monocytes # 0.7 (0.0-1.3) K/mcL Eosinophils # 0.4 (0.0-0.6) K/mcL Basophils # 0.1 (0.0-0.2) K/mcL Sodium 137 (136-145) mEq/L Potassium 4.6 (3.5-5.1) mEq/L Chloride 99 (98-107) mEq/L Carbon Dioxide 31 H (23-29) mEq/L BUN 14 (6-20) mg/dL Creatinine 0.76 (0.70-1.30) mg/dL Est GFR ( Amer) > 60 (> 60) Est GFR (Non-Af Amer) > 60 (> 60) BUN/Creatinine Ratio 18 (6-26) Glucose 122 H (70-105) mg/dL Calculated Osmolality 286 (280-300) Calcium 9.5 (8.6-10.3) mg/dL B-Natriuretic Peptide 27 (Less than 100) pg/mL - Radiology Data Radiology results reviewed: Yes I reviewed the patient's radiology results. Chest X-Ray 01/14/18 01:09 IMPRESSION: Features of mild congestive heart failure, including vascular congestion and mild interstitial edema. Equivocal for small left effusion. D/ / Vaughn Key / Vaughn Key Interpreting Provider: Vaughn Key Tibia/Fibula X-Ray 01/14/18 01:45 IMPRESSION: Diffuse soft tissue swelling and skin thickening consistent with provided history of cellulitis. Small ulcer along the lower anterior rojo. No subcutaneous emphysema or evidence of osteomyelitis. D/ / Vaughn Key / Vaughn Key Interpreting Provider: Vaughn Key
[2018-01-14 01:44] LABS: BUN/Creatinine Ratio 18 (6-26); Blood Urea Nitrogen 14 mg/dL (6-20); Calcium 9.5 mg/dL (8.6-10.3); Carbon Dioxide 31 mEq/L (23-29); Chloride 99 mEq/L (98-107); Glucose 122 mg/dL (70-105); Osmolality,Calculated 286 (280-300); Potassium 4.6 mEq/L (3.5-5.1); Sodium 137 mEq/L (136-145); eGFR For African Americans > 60 (> 60); eGFR For Non-African Americans > 60 (> 60)
[2018-01-14] MEDS ORDERED: *HR* Morphine Immed Rel 30 MG TABLET PO ONE (03:11)
[2018-01-14] MEDS ORDERED: Naloxone 0.4 MG/ML INJ IVP PRN (04:05)
[2018-01-14] MEDS ORDERED: D5% in Water 1,000 ML IVC PRN (04:08)
[2018-01-14] MEDS ORDERED: Dextrose Gel 15 GM/37.5 ML TUBE PO PRN ×2 (04:08)
[2018-01-14] MEDS ORDERED: *HR* Dextrose 50 % in Water (Syg) 50 ML SYRINGE IVP PRN (04:08)
[2018-01-14] MEDS ORDERED: Ipratropium/Albuterol Neb 3 ML IH PRN (04:15)
--- NOTE | 2018-01-14 04:17 | Internal Med History&Physical ---
Date of Encounter: 01/14/18 Time of Encounter: 03:00 Internal Medicine - H&P: HPI Chief complaint: Bilateral leg redness and swelling Admitted From: Home Plans for Post Hospital Care: Home History of present illness: Mr. Bonilla is a 57 year old male presented to ER for bilateral leg swelling, redness, and pain. Past medical history is significant for diabetes, hypertension, hyperlipidemia, CAD S/P stent, COPD on home oxygen. Patient said he has bilateral leg swelling, redness of the skin of bilateral lower extremity for several months. Patient was admitted in Aug 2017 for similar problem and treated as cellulitis. Patient has increased leg swelling and redness and belly swelling in last 2 months. Patient has chronic shortness of breath which is about the same level as previously. Patient denies a fever. Patient has bilateral leg sharp pain. Patient had recent DVT workup on , which is negative for DVT. Patient said she has gained about 30 pounds in last 1-2 months. In the emergency room, chest x-ray shows pulmonary congestion. Patient was admitted as cellulitis and possible CHF exacerbation. Past Med Surg Social Fam HX - Past Medical History Medical history: CHF, COPD, diabetes, GERD, hyperlipidemia, hypertension, myocardial infarction Additional medical history: current smoker Psychiatric history: no psych history - Past Surgical History Surgical History: angioplasty/stent, orthopedic, other, other Additional surgical history: Hernia repair in abd, back surgery - Social History Smoking Status: Former smoker Smokeless Tobacco Status: No Alcohol use: none Drug use: none - Family History Father Adopted: No Family Member Ethnicity: Non- Living Status: Hx Family Cardiac Disorders: Yes (Heart fAILURE) Hx Family Respiratory Disorders: No Hx Family Cancer: No Hx Family GI Disorders: No Hx Family Endocrine Disorder: Yes (Diabetic) Hx Family Neuromuscular Disorders: No Hx Family Neurologic Disorders: No Hx Family HEENT Disorders: No Hx Family Autoimmune Disorders: No Mother Family Member Ethnicity: Non- Living Status: Hx Family Cardiac Disorders: Yes (CHF) Hx Family Respiratory Disorders: No Hx Family Cancer: Yes (breast) Hx Family GI Disorders: No Hx Family Endocrine Disorder: No Hx Family Neuromuscular Disorders: No Hx Family Neurologic Disorders: Yes (Dementia) Hx Family HEENT Disorders: No Hx Family Autoimmune Disorders: No Internal Medicine - H&P: Meds Atorvastatin [Lipitor] 40 mg PO HS 01/14/18 [History] Enalapril Maleate [Vasotec] 20 mg PO BID 01/14/18 [History] Furosemide [Lasix] 20 mg PO DAILY 01/14/18 [History] Glimepiride [Amaryl] 2 mg PO 0800 01/14/18 [History] Metoprolol Tartrate [Lopressor] 25 mg PO BID 01/14/18 [History] Tamsulosin HCl [Flomax] 0.4 mg PO DAILY 01/14/18 [History] Triamcinolone Acet 0.1% CRM [Kenalog] 1 appl TP BID 01/14/18 [History] metFORMIN [Glucophage] 1,000 mg PO BIDWM 01/14/18 [History] 3 Allergy/AdvReac Type Severity Reaction Status Date / Time acetaminophen [From Percocet] AdvReac Itching Verified 01/13/18 23:10 Oxycodone [From Percocet] AdvReac Itching Verified 01/13/18 23:10 All Systems PM: A 10-system review of systems was performed and is negative for pertinent findings except as documented above in the HPI. - Constitutional Vitals: Temp Pulse Resp BP Pulse Ox 98.1 F 87 16 172/94 92 01/13/18 23:11 01/14/18 02:42 01/14/18 04:09 01/14/18 04:09 01/14/18 02:42 General appearance: Present: A&O X 3, no acute distress, answers questions appropriately - Head Head exam: Present: atraumatic, normocephalic - Eye Eye exam: Present: PERRL, conjuntiva pink, sclera anicteric Pupils: Present: PERRL - Neck Neck exam general surgery: Present: supple, trachea midline. Absent: lymphadenopathy - Respiratory Respiratory exam: Present: CTAB, wheezes (Scattered wheezes bilaterally). Absent: accessory muscle use, rales, rhonchi - Cardiovascular Cardiovascular exam: Present: RRR, +S1, +S2. Absent: diastolic murmur, gallop, rubs, systolic murmur - GI/Abdominal GI/Abdominal exam: Present: normal bowel sounds, soft, no peritoneal signs. Absent: distended, tenderness - Extremities Exam Extremities exam: Present: warm, radial pulses palpable and symmetrical. Absent : calf tenderness, cyanotic, pedal edema Additional comments: Bilateral lower leg skin redness, tenderness, and swelling. - Neurological Exam Neurological exam: Present: CN II-XII intact, oriented X3, no focal deficits. Absent: pronater drift, facial droop, speech deficit - Skin Skin exam: Present: dry, intact Internal Med - H&P Results - Labs CBC & Chem 7: 01/14/18 01:09 01/14/18 01:09 - Assessment and plan (1) CHF exacerbation Current Visit: Yes Status: Acute Assessment and plan: Patient has increased bilateral leg and belly swelling. Has increased the body weight. Chest x-ray shows pulmonary congestion. Consider CHF exacerbation. - Patient has negative BNP, however, he is morbid obese, BNP can be false negative. - Place patient on fluid restriction diet, start Lasix 40 mg IV daily. - Strict I and O, measure body wait daily. - Check echocardiogram in a.m. Qualifiers: Heart failure type: unspecified Qualified Code(s): I50.9 - Heart failure, unspecified (2) Cellulitis Current Visit: Yes Status: Acute Assessment and plan: Patient has bilateral lower leg skin redness. Cellulitis versus venous static dermatitis. - Continue Vanco IV, closely monitor patient. - Leg elevation during night Qualifiers: Site of cellulitis: extremity Site of cellulitis of extremity: lower extremity Laterality: unspecified laterality Qualified Code(s): L03.119 - Cellulitis of unspecified part of limb (3) DVT prophylaxis Current Visit: No Status: Acute Assessment and plan: Heparin subcutaneously (4) CAD (coronary artery disease) Current Visit: No Status: Chronic Assessment and plan: Continue home medications aspirin, beta elena, and atorvastatin. Patient denies chest pain. Qualifiers: Coronary Disease-Associated Artery/Lesion type: [place] artery [place] vs. transplanted heart: [place] heart Associated angina: without angina Qualified Code(s): I25.10 - Atherosclerotic heart disease of [place] coronary artery without angina pectoris (5) COPD (chronic obstructive pulmonary disease) Current Visit: No Status: Chronic Assessment and plan: Place patient on DuoNeb scheduled and when necessary. Qualifiers: COPD type: unspecified COPD Qualified Code(s): J44.9 - Chronic obstructive pulmonary disease, unspecified (6) Diabetes mellitus Current Visit: No Status: Chronic Assessment and plan: Place patient on sliding scale insulin coverage. 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 Monitor BP. Qualifiers: Hypertension type: essential hypertension Qualified Code(s): I10 - Essential (primary) hypertension - Time Spent With Patient Total time spent is greater than 50% in coordination of care (as documented) at patient's floor/unit and/or counseling patient: 40 minutes Greater than 35 minutes
[2018-01-14 05:52] LABS: VBG HCO3 37 mEq/L (21-27); VBG PCO2 81 mmHg (41-51); VBG PH 7.27 pH Units (7.32-7.42); VBG PO2 68 mmHg (25-50)
[2018-01-14] MEDS: *HR* Heparin 5,000 UNIT/ML VIAL SQ SCH ×2 (05:58→16:33)
[2018-01-14] MEDS: Insulin LISPRO 300 UNITS/3 ML VIAL SQ SCH ×4 (08:04→21:58)
[2018-01-14] MEDS: Triamcinolone Acet 0.1% CRM 15 GM TUBE TP SCH ×2 (08:14→21:58)
[2018-01-14] MEDS: Lisinopril 20 MG TABLET PO SCH ×2 (08:14→21:58)
[2018-01-14] MEDS: Furosemide 40 MG/4 ML VIAL IVP SCH (08:14)
[2018-01-14] MEDS ORDERED: Perflutren Lipid Microsphere 1.3 ML in 0.9 % Sodium Chloride 8.7 ML IVP ONE (08:44)
[2018-01-14] MEDS: Ipratropium/Albuterol Neb 3 ML IH SCH ×3 (10:51→21:35)
--- NOTE | 2018-01-14 15:13 | Internal Med Progress Note ---
Date of Encounter: 01/14/18 Time of Encounter: 15:10 - Assessment and plan (1) Cellulitis Current Visit: Yes Status: Acute Assessment and plan: Patient has bilateral lower leg edema, erythema History of Cellulitis with prior MRSA infections in August/2017 Per today's assessment cellulitis versus venous stasis No leukocytosis noted on today's labs - Continue Vanco IV, based on prior cultures closely monitor patient. - Leg elevation during night -Obtain wound cultures now -Continue to monitor labs daily Qualifiers: Site of cellulitis: extremity Site of cellulitis of extremity: lower extremity Laterality: unspecified laterality Qualified Code(s): L03.119 - Cellulitis of unspecified part of limb (2) COPD (chronic obstructive pulmonary disease) Current Visit: No Status: Chronic Assessment and plan: History of COPD, not in acute exacerbation Continue DuoNeb scheduled and when necessary. Qualifiers: COPD type: unspecified COPD Qualified Code(s): J44.9 - Chronic obstructive pulmonary disease, unspecified (3) Diabetes mellitus Current Visit: No Status: Chronic Assessment and plan: History of poorly controlled diabetes mellitus Mild hyperglycemia today but overall stable Continue sliding scale insulin coverage and adjust as needed Qualifiers: Diabetes mellitus type: type 2 Diabetes mellitus custodial insulin use: without senior fire protection engineer use Diabetes mellitus complication status: with unspecified complications Qualified Code(s): E11.8 - Type 2 diabetes mellitus with unspecified complications (4) Hypertension Current Visit: No Status: Chronic Assessment and plan: History of HTN, BP stable Continue home medications Monitor BP, had adjunct therapy as needed Qualifiers: Hypertension type: essential hypertension Qualified Code(s): I10 - Essential (primary) hypertension (5) CAD (coronary artery disease) Current Visit: No Status: Chronic Assessment and plan: History of coronary artery disease Continue Lipitor, lisinopril, beta elena, add aspirin 81 mg daily Qualifiers: Coronary Disease-Associated Artery/Lesion type: [place] artery [place] vs. transplanted heart: [place] heart Associated angina: without angina Qualified Code(s): I25.10 - Atherosclerotic heart disease of [place] coronary artery without angina pectoris (6) CHF exacerbation Current Visit: Yes Status: Acute Assessment and plan: Patient has increased bilateral leg and belly swelling Reporting 30 pound weight gain in the last 2 months Chest x-ray shows pulmonary congestion; bibasilar rales per auscultation No prior history of CHF, Consider CHF exacerbation TTE shows-LVEF 55-60%, normal LV chamber size, wall thickness and function, RV not well-visualized but normal lung function, mild LV diastolic dysfunction, mild-moderate pulmonary hypertension Negative for BNP elevation however in the setting of obesity BNP can be false negative Continue fluid restriction diet Continue IV diuretics with Lasix 40 mg IV daily Strict I's and O's, strictly daily Respiratory support as needed per nasal cannula On 20 mg daily oral Lasix at home, consider increasing at discharge Qualifiers: Heart failure type: unspecified Qualified Code(s): I50.9 - Heart failure, unspecified (7) DVT prophylaxis Current Visit: No Status: Acute Assessment and plan: SQ heparin - Time Spent With Patient Total time spent is greater than 50% in coordination of care (as documented) at patient's floor/unit and/or counseling patient: Greater than 35 minutes - Subjective Interval history: Patient seen and examined at bedside today. No acute changes. Continuing to have pain and swelling in bilateral lower extremities. Denies any chest pain. Reports shortness of breath and abdominal swelling. - Constitutional Vitals: Temp Pulse Resp BP Pulse Ox 97.5 F L 86 18 145/85 92 01/14/18 11:22 01/14/18 11:22 01/14/18 11:22 01/14/18 11:22 01/14/18 10:54 General appearance: Present: A&O X 3, no acute distress, answers questions appropriately - Head Head exam: Present: atraumatic, normocephalic - Eye Eye exam: Present: EOMI, PERRL, conjuntiva pink, sclera anicteric Pupils: Present: PERRL - Neck Neck exam general surgery: Present: supple, trachea midline. Absent: lymphadenopathy - Respiratory Respiratory exam: Present: decreased breath sounds, rales (Bilateral bases). Absent: accessory muscle use, chest wall tenderness, respiratory distress, rhonchi, wheezes, tachypnea - Cardiovascular Cardiovascular exam: Present: RRR, +S1, +S2. Absent: diastolic murmur, gallop, rubs, systolic murmur - GI/Abdominal GI/Abdominal exam: Present: normal bowel sounds, soft, no peritoneal signs. Absent: distended, tenderness Additional comments: Increased abdominal girth, soft and nontender, NABS - Extremities Exam Extremities exam: Present: tenderness, warm. Absent: calf tenderness, cyanotic , normal inspection, pedal edema - Expanded Lower Extremities Exam Lower Leg exam: Present: erythema, swelling, tenderness. Absent: normal inspection 1 - Gross erythema, swelling and tenderness. BLE blanchable. Minimal amount of serous drainage present. Multiple poorly healing ulcerations present bilateral legs; culture these - Neurological Exam Neurological exam: Present: CN II-XII intact, oriented X3, no focal deficits. Absent: pronater drift, facial droop, speech deficit - Skin Skin exam: Present: dry, intact Internal Medicine: Result - Labs CBC & Chem 7: 01/14/18 01:09 01/14/18 01:09 - Impressions Impressions Echocardiogram 01/14/18 04:12 Impressions: Technically sub-optimal due to body habitus. LVEF 55-60%. Normal LV chamber size, wall thickness and function. Right ventricle was not well visualized. Grossly, it is normal in function. Mild left ventricular diastolic dysfunction. Mild-moderate pulmonary hypertension. Estimated RVSP is 46 mmHg. Left Ventricular Wall Motion: Rest Echo Findings All wall segments showed normal motion. Findings: Study Quality * Technically sub-optimal due to body habitus. ECG Findings * Normal sinus rhythm. Left Ventricle * LVEF 55-60%. * Normal LV chamber size, wall thickness and function. * Mild left ventricular diastolic dysfunction. Right Ventricle * Right ventricle was not well visualized. Grossly, it is normal in function. Left Atrium * Moderately dilated left atrium. Right Atrium * Mildly dilated right atrium. Aortic Valve * Aortic valve not well visualized. * No aortic stenosis. * No aortic regurgitation. Mitral Valve * Normal mitral valve structure and function. * No mitral regurgitation. * No mitral stenosis. Tricuspid Valve * Normal tricuspid valve structure and function. * Trace tricuspid regurgitation. * Mild-moderate pulmonary hypertension. * Estimated RVSP is 46 mmHg. * Estimated RA pressure is presumed to be at least 5 mmHg. Pulmonic Valve * Pulmonic valve not well visualized. Aorta * Normally sized aortic root. Pericardium * The pericardium appears normal. IVC * The IVC is not well evaluated. Pulmonary Artery * Normal visualized portions of the main pulmonary artery. Consult Discharge Plan - Plan Referrals: Marquis Kwok MD [Primary Care Provider] -
[2018-01-14] MEDS: Aspirin 81 MG TAB.CHEW PO SCH (16:32)
[2018-01-14] MEDS: Ibuprofen 600 MG TABLET PO PRN (16:33)
[2018-01-15 01:54] LABS: Basophils # 0.1 K/mcL (0.0-0.2); Basophils % 0.5 %; Eosinophils # 0.4 K/mcL (0.0-0.6); Eosinophils % 3.9 %; Hematocrit 49.4 % (37.5-50.1); Hemoglobin 15.4 g/dL (12.9-16.9); Immature Granulocytes % 0.4 % (0-4); Lymphocytes # 1.1 K/mcL (0.6-4.6); Lymphocytes % 11.9 %; Mean Corpuscular HGB Conc 31.2 g/dL (31.6-35.5); Mean Corpuscular Volume 89.8 fL (83.0-100.0); Mean Platelet Volume 9.8 fL (9.4-12.4); Monocytes # 0.6 K/mcL (0.0-1.3); Monocytes % 6.1 %; Neutrophils # 7.1 K/mcL (1.6-8.9); Platelet Count 234 K/mcL (140-400); Red Cell Distribution Width 17.9 % (11.5-14.5); Segmented Neutrophils % 77.2 %
[2018-01-15 02:13] LABS: BUN/Creatinine Ratio 16 (6-26); Blood Urea Nitrogen 13 mg/dL (6-20); Calcium 9.3 mg/dL (8.6-10.3); Carbon Dioxide 35 mEq/L (23-29); Chloride 101 mEq/L (98-107); Chol/HDL Ratio 4.2 (0-4.9); Cholesterol 104 mg/dL (< 200); Glucose 171 mg/dL (70-105); HDL Cholesterol 25 mg/dL (40-59); LDL Cholesterol,Calculated 57 mg/dL (0-99); Magnesium 2.1 mg/dL (1.6-2.6); Osmolality,Calculated 292 (280-300); Potassium 4.7 mEq/L (3.5-5.1); Sodium 139 mEq/L (136-145); Triglycerides 112 mg/dL (< 150); eGFR For African Americans > 60 (> 60); eGFR For Non-African Americans > 60 (> 60)
[2018-01-15] MEDS: Ibuprofen 600 MG TABLET PO PRN ×2 (03:51→22:38)
[2018-01-15] MEDS: Ipratropium/Albuterol Neb 3 ML IH SCH ×4 (04:37→22:17)
[2018-01-15] MEDS: *HR* Heparin 5,000 UNIT/ML VIAL SQ SCH ×2 (06:30→17:14)
[2018-01-15] MEDS: Insulin LISPRO 300 UNITS/3 ML VIAL SQ SCH ×4 (08:05→22:23)
[2018-01-15] MEDS: Lisinopril 20 MG TABLET PO SCH ×2 (08:06→22:31)
[2018-01-15] MEDS: Aspirin 81 MG TAB.CHEW PO SCH (08:06)
[2018-01-15] MEDS: Furosemide 40 MG/4 ML VIAL IVP SCH (08:07)
[2018-01-15] MEDS: Triamcinolone Acet 0.1% CRM 15 GM TUBE TP SCH ×2 (08:07→22:31)
--- NOTE | 2018-01-15 13:22 | Internal Med Progress Note ---
Date of Encounter: 01/15/18 Time of Encounter: 13:20 - Assessment and plan (1) Cellulitis Current Visit: Yes Status: Acute Assessment and plan: Patient has bilateral lower leg edema, erythema History of Cellulitis with prior MRSA infections in August/2017 Per today's assessment cellulitis versus venous stasis No leukocytosis noted on today's labs 01/15/18 - Continue Vanco IV, based on prior cultures closely monitor patient. - Leg elevation during night -Wrap legs with gauze and Kerlix dressing -Consult to wound care team; appreciate recommendations -Wound cultures growing Staphylococcus aureus-follow cultures for final results and adjust ABX as appropriate -Continue to monitor labs daily; closely monitor renal function as the patient is on vancomycin Qualifiers: Site of cellulitis: extremity Site of cellulitis of extremity: lower extremity Laterality: unspecified laterality Qualified Code(s): L03.119 - Cellulitis of unspecified part of limb (2) COPD (chronic obstructive pulmonary disease) Current Visit: No Status: Chronic Assessment and plan: History of COPD, not in acute exacerbation Continue DuoNeb scheduled and when necessary. Qualifiers: COPD type: unspecified COPD Qualified Code(s): J44.9 - Chronic obstructive pulmonary disease, unspecified (3) Diabetes mellitus Current Visit: No Status: Chronic Assessment and plan: History of poorly controlled diabetes mellitus Blood glucose improving today Continue sliding scale insulin coverage and adjust as needed Qualifiers: Diabetes mellitus type: type 2 Diabetes mellitus termite treater helper insulin use: without termite treater helper use Diabetes mellitus complication status: with unspecified complications Qualified Code(s): E11.8 - Type 2 diabetes mellitus with unspecified complications (4) Hypertension Current Visit: No Status: Chronic Assessment and plan: History of HTN, BP stable Continue home anti-HTN medications Monitor BP, had adjunct therapy as needed Qualifiers: Hypertension type: essential hypertension Qualified Code(s): I10 - Essential (primary) hypertension (5) CAD (coronary artery disease) Current Visit: No Status: Chronic Assessment and plan: History of coronary artery disease Continue Lipitor, lisinopril, beta elena, add aspirin 81 mg daily Qualifiers: Coronary Disease-Associated Artery/Lesion type: [place] artery [place] vs. transplanted heart: [place] heart Associated angina: without angina Qualified Code(s): I25.10 - Atherosclerotic heart disease of [place] coronary artery without angina pectoris (6) CHF exacerbation Current Visit: Yes Status: Acute Assessment and plan: Patient has increased BLE swelling, weight gain and increased abdominal girth Reporting 30 pound weight gain in the last 2 months Chest x-ray on admission shows pulmonary congestion; fine bibasilar rales per auscultation today 01/15/18 No prior history of CHF, TTE shows-LVEF 55-60%, normal LV chamber size, wall thickness and function, RV not well-visualized but normal lung function, mild LV diastolic dysfunction, mild-moderate pulmonary hypertension-explaining current clinical picture Negative for BNP elevation however in the setting of obesity BNP can be false negative Continue fluid restriction diet Continue IV diuretics with Lasix 40 mg IV daily Strict I's and O's, Daily weight Respiratory support as needed per nasal cannula On 20 mg daily oral Lasix at home, consider increasing dose and frequency at discharge Qualifiers: Heart failure type: unspecified Qualified Code(s): I50.9 - Heart failure, unspecified (7) DVT prophylaxis Current Visit: No Status: Acute Assessment and plan: Continue SQ heparin - Time Spent With Patient Total time spent is greater than 50% in coordination of care (as documented) at patient's floor/unit and/or counseling patient: 25 - 35 minutes - Subjective Interval history: Patient seen and examined at bedside today. No acute changes. Continuing to have pain and swelling in bilateral lower extremities. Denies any chest pain but reports shortness of breath and abdominal swelling. - Constitutional Vitals: Temp Pulse Resp BP Pulse Ox 98.0 F 88 18 120/77 92 01/15/18 11:54 01/15/18 11:54 01/15/18 11:54 01/15/18 11:54 01/15/18 11:54 General appearance: Present: A&O X 3, no acute distress, answers questions appropriately - Head Head exam: Present: atraumatic, normocephalic - Eye Eye exam: Present: EOMI, PERRL, conjuntiva pink, sclera anicteric Pupils: Present: PERRL - Neck Neck exam general surgery: Present: supple, trachea midline. Absent: lymphadenopathy - Respiratory Respiratory exam: Present: decreased breath sounds, CTAB, prolonged expiratory phase. Absent: accessory muscle use, chest wall tenderness, rales, respiratory distress, rhonchi, wheezes, tachypnea - Cardiovascular Cardiovascular exam: Present: RRR, +S1, +S2. Absent: diastolic murmur, gallop, rubs, systolic murmur - GI/Abdominal GI/Abdominal exam: Present: normal bowel sounds, soft, no peritoneal signs. Absent: distended, tenderness - Extremities Exam Extremities exam: Present: warm, radial pulses palpable and symmetrical. Absent : calf tenderness, cyanotic, normal inspection, pedal edema - Expanded Lower Extremities Exam 1 - BLE erythema and swelling. Multiple ulcerations in various stages of healing present with drainage noted. No purulence - Neurological Exam Neurological exam: Present: CN II-XII intact, oriented X3, no focal deficits. Absent: pronater drift, facial droop, speech deficit - Skin Skin exam: Present: dry, intact Internal Medicine: Result - Labs CBC & Chem 7: 01/15/18 01:34 01/15/18 01:34 Labs: Short CBC 01/15/18 Range/Units 01:34 WBC 9.2 (4.3-11.1) K/mcL Hgb 15.4 (12.9-16.9) g/dL Hct 49.4 (37.5-50.1) % Plt Count 234 (140-400) K/mcL Neutrophils # 7.1 (1.6-8.9) K/mcL BMP 01/15/18 01:34 Sodium 139 Potassium 4.7 Chloride 101 Carbon Dioxide 35 H BUN 13 Creatinine 0.83 Glucose 171 H Calcium 9.3 Cardiac Enzymes 01/15/18 01/15/18 Range/Units 04:06 09:37 Troponin I < 0.03 < 0.03 (< 0.04) ng/mL Consult Discharge Plan - Plan Referrals: Marquis Kwok MD [Primary Care Provider] -
[2018-01-16] MEDS: Ipratropium/Albuterol Neb 3 ML IH SCH ×4 (03:57→23:05)
[2018-01-16] MEDS: *HR* Heparin 5,000 UNIT/ML VIAL SQ SCH ×2 (05:45→18:11)
[2018-01-16] MEDS: Triamcinolone Acet 0.1% CRM 15 GM TUBE TP SCH ×2 (08:20→21:49)
[2018-01-16] MEDS: Insulin LISPRO 300 UNITS/3 ML VIAL SQ SCH ×4 (08:20→21:48)
[2018-01-16] MEDS: Furosemide 40 MG/4 ML VIAL IVP SCH ×2 (08:20→21:49)
[2018-01-16] MEDS: Aspirin 81 MG TAB.CHEW PO SCH (08:20)
[2018-01-16] MEDS: Lisinopril 20 MG TABLET PO SCH ×2 (08:20→21:50)
--- NOTE | 2018-01-16 16:30 | Internal Med Progress Note ---
Date of Encounter: 01/16/18 Time of Encounter: 16:27 - Assessment and plan (1) CHF exacerbation Current Visit: Yes Status: Acute Assessment and plan: increased lasix to 40 mg BID IV Qualifiers: Heart failure type: diastolic Qualified Code(s): I50.33 - Acute on chronic diastolic (congestive) heart failure (2) Cellulitis Current Visit: Yes Status: Acute Assessment and plan: add zosyn to vancomycin Qualifiers: Site of cellulitis: extremity Site of cellulitis of extremity: lower extremity Laterality: unspecified laterality Qualified Code(s): L03.119 - Cellulitis of unspecified part of limb (3) Morbid obesity Current Visit: Yes Status: Chronic Assessment and plan: life style modification (4) Yeast infection of the skin Current Visit: Yes Status: Acute Assessment and plan: add fluconazole and cream (5) COPD (chronic obstructive pulmonary disease) Current Visit: Yes Status: Chronic Assessment and plan: on home O2 2 L NC Qualifiers: COPD type: unspecified COPD Qualified Code(s): J44.9 - Chronic obstructive pulmonary disease, unspecified (6) Diabetes mellitus Current Visit: Yes Status: Chronic Assessment and plan: conitnue insulin Qualifiers: Diabetes mellitus type: type 2 Diabetes mellitus retirement insulin use: without middle or intermediate school principal use Diabetes mellitus complication status: with unspecified complications Qualified Code(s): E11.8 - Type 2 diabetes mellitus with unspecified complications (7) Hypertension Current Visit: Yes Status: Chronic Qualifiers: Hypertension type: essential hypertension Qualified Code(s): I10 - Essential (primary) hypertension (8) DVT prophylaxis Current Visit: Yes Status: Acute Assessment and plan: heparin SC (9) CAD (coronary artery disease) Current Visit: Yes Status: Chronic Assessment and plan: conitue home meds Qualifiers: Coronary Disease-Associated Artery/Lesion type: [place] artery [place] vs. transplanted heart: [place] heart Associated angina: without angina Qualified Code(s): I25.10 - Atherosclerotic heart disease of [place] coronary artery without angina pectoris - Time Spent With Patient Total time spent is greater than 50% in coordination of care (as documented) at patient's floor/unit and/or counseling patient: Greater than 35 minutes - Subjective Interval history: Mr. Bonilla is a 57 year old male presented to ER for bilateral leg swelling, redness, and pain. Past medical history is significant for diabetes, hypertension, hyperlipidemia, CAD S/P stent, COPD on home oxygen. Patient said he has bilateral leg swelling, redness of the skin of bilateral lower extremity for several months. Patient was admitted in Aug 2017 for similar problem and treated as cellulitis. Patient has increased leg swelling and redness and belly swelling in last 2 months. Patient has chronic shortness of breath which is about the same level as previously. Patient had recent DVT workup on 10/16/17, which is negative for DVT. Patient said she has gained about 30 pounds in last 1-2 months. In the emergency room, chest x-ray shows pulmonary congestion. Patient was admitted as cellulitis and possible CHF exacerbation. He hasa been on IV vancomycin,, has b/l leg swelling 4 +, extensive skin yeast infection. will add zosyn and increase IV lasix to BID add fluconazone - Constitutional Vitals: Temp Pulse Resp BP Pulse Ox 97.9 F 91 16 110/65 92 01/16/18 15:55 01/16/18 15:55 01/16/18 15:57 01/16/18 15:55 01/16/18 15:57 General appearance: Present: A&O X 3, no acute distress, obese, answers questions appropriately Exam: CONSTITUTIONAL: patient appears as an age appropriate male in no acute distress. EYES Clear sclerae, bilateral pupils are equal, reactive to light. EMOI. RESPIRATORY: No accessory muscle use, bilateral clear to auscultation, no wheezing, no crackles/rales. CARDIOVASCULAR: Regular heart rate, normal S1 and S2, no murmurs GASTROINTESTINAL: bowel sounds present, soft, no tenderness. MUSCULOSKELETAL: Joints in normal range of motion, no clubbing, +++ edema, no cyanosis. Bilateral peripheral pulses 2+. NEUROLOGIC: CN II to XII are grossly intact, no focal neurological deficit. Internal Medicine: Result - Labs CBC & Chem 7: 01/15/18 01:34 01/15/18 01:34 Labs: Cardiac Enzymes 01/15/18 Range/Units 16:35 Troponin I < 0.03 (< 0.04) ng/mL Consult Discharge Plan - Plan Referrals: Marquis Kwok MD [Primary Care Provider] -
[2018-01-16] MEDS: Piperacillin/Tazobactam 3.375 GM in 0.9 % Sodium Chloride Mini Bag 100 ML IVPB SCH (18:12)
--- NOTE | 2018-01-16 18:21 | Electrocardiograph Report ---
[address] [address] Test Date: 2018-01-15 Pat Name: Ashwin Bonilla Department: 114 Room: [facility] Gender: M Strap Sewer: TREMAYNE : 1960 Requested By: tG Sosa Order Number: [id number] Reading MD: Cruz Estevez Measurements Intervals [place] Rate: 111 P: 70 MN: 167 QRS: 38 QRSD: 98 T: 53 QT: 319 QTc: 385 Interpretive Statements SINUS TACHYCARDIA Electronically Signed On 01-16-2018 18:20:08 EDT by Cruz Estevez
[2018-01-16] MEDS: Fluconazole 100 MG TABLET PO SCH (21:50)
[2018-01-16] MEDS: Ketoconazole 2% CRM 15 GM TUBE TP SCH (21:50)
[2018-01-17] MEDS: Piperacillin/Tazobactam 3.375 GM in 0.9 % Sodium Chloride Mini Bag 100 ML IVPB SCH ×3 (00:18→16:07)
[2018-01-17] MEDS: Ipratropium/Albuterol Neb 3 ML IH SCH ×4 (03:26→22:16)
[2018-01-17] MEDS: Ibuprofen 600 MG TABLET PO PRN ×3 (04:23→21:24)
[2018-01-17 05:30] LABS: Basophils % 0.4 %; Eosinophils # 0.6 K/mcL (0.0-0.6); Eosinophils % 5.7 %; Hematocrit 44.6 % (37.5-50.1); Hemoglobin 14.3 g/dL (12.9-16.9); Immature Granulocytes % 0.4 % (0-4); Lymphocytes # 1.6 K/mcL (0.6-4.6); Lymphocytes % 15.3 %; Mean Corpuscular HGB Conc 32.1 g/dL (31.6-35.5); Mean Corpuscular Hemoglobin 28.4 pg (28.0-33.3); Mean Corpuscular Volume 88.7 fL (83.0-100.0); Mean Platelet Volume 9.5 fL (9.4-12.4); Monocytes # 0.7 K/mcL (0.0-1.3); Monocytes % 7.1 %; Neutrophils # 7.3 K/mcL (1.6-8.9); Platelet Count 220 K/mcL (140-400); Red Blood Count 5.03 M/mcL (4.19-5.50); Red Cell Distribution Width 16.9 % (11.5-14.5); Segmented Neutrophils % 71.1 %
[2018-01-17 05:43] LABS: BUN/Creatinine Ratio 21 (6-26); Blood Urea Nitrogen 17 mg/dL (6-20); Calcium 9.2 mg/dL (8.6-10.3); Carbon Dioxide 30 mEq/L (23-29); Chloride 99 mEq/L (98-107); Glucose 155 mg/dL (70-105); Magnesium 1.9 mg/dL (1.6-2.6); Osmolality,Calculated 291 (280-300); Sodium 138 mEq/L (136-145); eGFR For African Americans > 60 (> 60); eGFR For Non-African Americans > 60 (> 60)
[2018-01-17] MEDS: *HR* Heparin 5,000 UNIT/ML VIAL SQ SCH ×2 (06:08→17:04)
[2018-01-17] MEDS: Lisinopril 20 MG TABLET PO SCH ×2 (08:15→21:24)
[2018-01-17] MEDS: Fluconazole 100 MG TABLET PO SCH (08:15)
[2018-01-17] MEDS: Aspirin 81 MG TAB.CHEW PO SCH (08:16)
[2018-01-17] MEDS: Furosemide 40 MG/4 ML VIAL IVP SCH ×2 (08:16→17:05)
[2018-01-17] MEDS: Triamcinolone Acet 0.1% CRM 15 GM TUBE TP SCH ×2 (08:17→21:27)
[2018-01-17] MEDS: Insulin LISPRO 300 UNITS/3 ML VIAL SQ SCH ×4 (08:17→21:27)
[2018-01-17] MEDS: Ketoconazole 2% CRM 15 GM TUBE TP SCH ×2 (08:18→21:26)
--- NOTE | 2018-01-17 15:17 | Internal Med Progress Note ---
Date of Encounter: 01/17/18 Time of Encounter: 15:15 - Assessment and plan (1) CHF exacerbation Current Visit: Yes Status: Acute Assessment and plan: acute on chronic diastolic CHF exacerbation, contineu IV lasix TTE on 01/14 showed EF 55-60%, mild-mod pulmonary hypertension Qualifiers: Heart failure type: diastolic Qualified Code(s): I50.33 - Acute on chronic diastolic (congestive) heart failure (2) Cellulitis Current Visit: Yes Status: Acute Assessment and plan: wound growing MRSA, on IV vancomycin and zosyn Qualifiers: Site of cellulitis: extremity Site of cellulitis of extremity: lower extremity Laterality: unspecified laterality Qualified Code(s): L03.119 - Cellulitis of unspecified part of limb (3) Morbid obesity Current Visit: Yes Status: Chronic (4) Yeast infection of the skin Current Visit: Yes Status: Acute (5) COPD (chronic obstructive pulmonary disease) Current Visit: Yes Status: Chronic Assessment and plan: no wheezing, on 2 L NC at home Qualifiers: COPD type: unspecified COPD Qualified Code(s): J44.9 - Chronic obstructive pulmonary disease, unspecified (6) Diabetes mellitus Current Visit: Yes Status: Chronic Assessment and plan: continue insulin Qualifiers: Diabetes mellitus type: type 2 Diabetes mellitus watermaster insulin use: without watermaster use Diabetes mellitus complication status: with unspecified complications Qualified Code(s): E11.8 - Type 2 diabetes mellitus with unspecified complications (7) Hypertension Current Visit: Yes Status: Chronic Qualifiers: Hypertension type: essential hypertension Qualified Code(s): I10 - Essential (primary) hypertension (8) DVT prophylaxis Current Visit: Yes Status: Acute (9) CAD (coronary artery disease) Current Visit: Yes Status: Chronic Qualifiers: Coronary Disease-Associated Artery/Lesion type: [place] artery [place] vs. transplanted heart: [place] heart Associated angina: without angina Qualified Code(s): I25.10 - Atherosclerotic heart disease of [place] coronary artery without angina pectoris - Time Spent With Patient Total time spent is greater than 50% in coordination of care (as documented) at patient's floor/unit and/or counseling patient: - Subjective Interval history: Mr. Bonilla is a 57 year old male presented to ER for bilateral leg swelling, redness, and pain. Past medical history is significant for diabetes, hypertension, hyperlipidemia, CAD S/P stent, COPD on home oxygen. Patient said he has bilateral leg swelling, redness of the skin of bilateral lower extremity for several months. Patient was admitted in Aug 2017 for similar problem and treated as cellulitis. Patient has increased leg swelling and redness and belly swelling in last 2 months. Patient has chronic shortness of breath which is about the same level as previously. Patient had recent DVT workup on 10/16/17, which is negative for DVT. Patient said she has gained about 30 pounds in last 1-2 months. In the emergency room, chest x-ray shows pulmonary congestion. Patient was admitted as cellulitis and possible CHF exacerbation. He has been on IV vancomycin,, has b/l leg swelling 4 +, extensive skin yeast infection. patient is doing better, redness and swelling improved. 1. continue IV vancomycin and zosyn 2. fluconazone for skin yeast infection 3. b/l leg swelling, on Iv lasix - Constitutional Vitals: Temp Pulse Resp BP Pulse Ox 97.6 F 80 18 145/71 95 01/17/18 11:26 01/17/18 11:26 01/17/18 11:26 01/17/18 11:26 01/17/18 11:26 General appearance: Present: A&O X 3, no acute distress, obese, answers questions appropriately Exam: CONSTITUTIONAL: patient appears as an age appropriate male in no acute distress. EYES Clear sclerae, bilateral pupils are equal, reactive to light. EMOI. RESPIRATORY: No accessory muscle use, bilateral clear to auscultation, no wheezing, no crackles/rales. CARDIOVASCULAR: Regular heart rate, normal S1 and S2, no murmurs GASTROINTESTINAL: bowel sounds present, soft, no tenderness. MUSCULOSKELETAL: Joints in normal range of motion, no clubbing, ++ edema, no cyanosis. Bilateral peripheral pulses 2+. NEUROLOGIC: CN II to XII are grossly intact, no focal neurological deficit. Internal Medicine: Result - Labs CBC & Chem 7: 01/17/18 05:10 01/17/18 05:10 Labs: Short CBC 01/17/18 Range/Units 05:10 WBC 10.2 (4.3-11.1) K/mcL Hgb 14.3 (12.9-16.9) g/dL Hct 44.6 (37.5-50.1) % Plt Count 220 (140-400) K/mcL Neutrophils # 7.3 (1.6-8.9) K/mcL [facility] 01/17/18 05:10 Sodium 138 Potassium 4.0 Chloride 99 Carbon Dioxide 30 H BUN 17 Creatinine 0.81 Glucose 155 H Calcium 9.2 Consult Discharge Plan - Plan Referrals: Marquis Kwok MD [Primary Care Provider] -
[2018-01-18] MEDS: Piperacillin/Tazobactam 3.375 GM in 0.9 % Sodium Chloride Mini Bag 100 ML IVPB SCH ×2 (00:19→08:28)
[2018-01-18] MEDS: Ipratropium/Albuterol Neb 3 ML IH SCH ×4 (03:45→22:26)
[2018-01-18] MEDS: *HR* Heparin 5,000 UNIT/ML VIAL SQ SCH ×2 (06:37→17:24)
[2018-01-18] MEDS: Lisinopril 20 MG TABLET PO SCH ×2 (08:27→19:51)
[2018-01-18] MEDS: Aspirin 81 MG TAB.CHEW PO SCH (08:28)
[2018-01-18] MEDS: Furosemide 40 MG/4 ML VIAL IVP SCH (08:28)
[2018-01-18] MEDS: Fluconazole 100 MG TABLET PO SCH (08:28)
[2018-01-18] MEDS: Ketoconazole 2% CRM 15 GM TUBE TP SCH ×2 (08:29→20:18)
[2018-01-18] MEDS: Insulin LISPRO 300 UNITS/3 ML VIAL SQ SCH ×4 (08:29→19:51)
[2018-01-18] MEDS: Triamcinolone Acet 0.1% CRM 15 GM TUBE TP SCH ×2 (08:29→20:17)
--- NOTE | 2018-01-18 14:30 | Internal Med Progress Note ---
Date of Encounter: 01/18/18 Time of Encounter: 14:28 - Assessment and plan (1) CHF exacerbation Current Visit: Yes Status: Acute Assessment and plan: acute on chronic diastolic CHF exacerbation, improved with IV lasix, changed to home dose lasix today TTE on 01/14 showed EF 55-60%, mild-mod pulmonary hypertension Qualifiers: Heart failure type: diastolic Qualified Code(s): I50.33 - Acute on chronic diastolic (congestive) heart failure (2) Cellulitis Current Visit: Yes Status: Acute Assessment and plan: wound growing MRSA, on IV vancomycin and cipro Qualifiers: Site of cellulitis: extremity Site of cellulitis of extremity: lower extremity Laterality: unspecified laterality Qualified Code(s): L03.119 - Cellulitis of unspecified part of limb (3) Morbid obesity Current Visit: Yes Status: Chronic (4) Yeast infection of the skin Current Visit: Yes Status: Acute (5) COPD (chronic obstructive pulmonary disease) Current Visit: Yes Status: Chronic Assessment and plan: on 2 L NC at home Qualifiers: COPD type: unspecified COPD Qualified Code(s): J44.9 - Chronic obstructive pulmonary disease, unspecified (6) Diabetes mellitus Current Visit: Yes Status: Chronic Assessment and plan: conitnue home meds, home metformn, add SSI Qualifiers: Diabetes mellitus type: type 2 Diabetes mellitus exterminator helper insulin use: without exterminator helper use Diabetes mellitus complication status: with unspecified complications Qualified Code(s): E11.8 - Type 2 diabetes mellitus with unspecified complications (7) Hypertension Current Visit: Yes Status: Chronic Qualifiers: Hypertension type: essential hypertension Qualified Code(s): I10 - Essential (primary) hypertension (8) DVT prophylaxis Current Visit: Yes Status: Acute (9) CAD (coronary artery disease) Current Visit: Yes Status: Chronic Qualifiers: Coronary Disease-Associated Artery/Lesion type: [place] artery [place] vs. transplanted heart: [place] heart Associated angina: without angina Qualified Code(s): I25.10 - Atherosclerotic heart disease of [place] coronary artery without angina pectoris - Time Spent With Patient Total time spent is greater than 50% in coordination of care (as documented) at patient's floor/unit and/or counseling patient: - Subjective Interval history: Mr. Bonilla is a 57 year old male presented to ER for bilateral leg swelling, redness, and pain. Past medical history is significant for diabetes, hypertension, hyperlipidemia, CAD S/P stent, COPD on home oxygen. Patient said he has bilateral leg swelling, redness of the skin of bilateral lower extremity for several months. Patient was admitted in Aug 2017 for similar problem and treated as cellulitis. Patient has increased leg swelling and redness and belly swelling in last 2 months. Patient has chronic shortness of breath which is about the same level as previously. Patient had recent DVT workup on 10/16/17, which is negative for DVT. Patient said she has gained about 30 pounds in last 1-2 months. In the emergency room, chest x-ray shows pulmonary congestion. Patient was admitted as cellulitis and possible CHF exacerbation. He has been on IV vancomycin,, has b/l leg swelling 4 +, extensive skin yeast infection. patient is doing better, redness and swelling improved. d/c IV lasix, resume home dose lasix 1. b/l leg cellulitis, wound culture growing MRSA, continue IV vancomycin and add cipro 2. fluconazone for skin yeast infection 3. b/l leg swelling, improved with IV lasix, changed to home dose lasix - Constitutional Vitals: Temp Pulse Resp BP Pulse Ox 97.5 F L 83 18 96/61 92 01/18/18 11:06 01/18/18 11:06 01/18/18 11:06 01/18/18 11:06 01/18/18 11:06 General appearance: Present: A&O X 3, no acute distress, obese, answers questions appropriately Exam: CONSTITUTIONAL: patient appears as an age appropriate male in no acute distress. EYES Clear sclerae, bilateral pupils are equal, reactive to light. EMOI. RESPIRATORY: No accessory muscle use, bilateral clear to auscultation, no wheezing, no crackles/rales. CARDIOVASCULAR: Regular heart rate, normal S1 and S2, no murmurs GASTROINTESTINAL: bowel sounds present, soft, no tenderness. MUSCULOSKELETAL: Joints in normal range of motion, no clubbing, ++ edema, no cyanosis. Bilateral peripheral pulses 2+. NEUROLOGIC: CN II to XII are grossly intact, no focal neurological deficit. Internal Medicine: Result - Labs CBC & Chem 7: 01/17/18 05:10 01/17/18 05:10 Consult Discharge Plan - Plan Referrals: Marquis Kwok MD [Primary Care Provider] -
[2018-01-19] MEDS: Ipratropium/Albuterol Neb 3 ML IH SCH ×4 (04:15→22:32)
[2018-01-19 05:49] LABS: Basophils # 0.1 K/mcL (0.0-0.2); Basophils % 0.6 %; Eosinophils # 0.6 K/mcL (0.0-0.6); Eosinophils % 6.1 %; Hematocrit 47.7 % (37.5-50.1); Hemoglobin 15.4 g/dL (12.9-16.9); Immature Granulocytes % 0.4 % (0-4); Lymphocytes # 1.4 K/mcL (0.6-4.6); Lymphocytes % 14.6 %; Mean Corpuscular HGB Conc 32.3 g/dL (31.6-35.5); Mean Corpuscular Hemoglobin 28.6 pg (28.0-33.3); Mean Corpuscular Volume 88.7 fL (83.0-100.0); Mean Platelet Volume 9.9 fL (9.4-12.4); Monocytes # 0.6 K/mcL (0.0-1.3); Monocytes % 6.5 %; Neutrophils # 6.7 K/mcL (1.6-8.9); Platelet Count 243 K/mcL (140-400); Red Blood Count 5.38 M/mcL (4.19-5.50); Red Cell Distribution Width 16.1 % (11.5-14.5); Segmented Neutrophils % 71.8 %
[2018-01-19 05:55] LABS: BUN/Creatinine Ratio 24 (6-26); Blood Urea Nitrogen 18 mg/dL (6-20); Calcium 9.5 mg/dL (8.6-10.3); Carbon Dioxide 30 mEq/L (23-29); Chloride 101 mEq/L (98-107); Glucose 197 mg/dL (70-105); Magnesium 2.1 mg/dL (1.6-2.6); Osmolality,Calculated 293 (280-300); Potassium 4.9 mEq/L (3.5-5.1); Sodium 138 mEq/L (136-145); eGFR For African Americans > 60 (> 60); eGFR For Non-African Americans > 60 (> 60)
[2018-01-19] MEDS: *HR* Heparin 5,000 UNIT/ML VIAL SQ SCH ×2 (06:27→17:58)
[2018-01-19] MEDS: Insulin LISPRO 300 UNITS/3 ML VIAL SQ SCH ×4 (07:58→21:27)
[2018-01-19] MEDS: Aspirin 81 MG TAB.CHEW PO SCH (07:59)
[2018-01-19] MEDS: Fluconazole 100 MG TABLET PO SCH (07:59)
[2018-01-19] MEDS: Furosemide 20 MG TABLET PO SCH (07:59)
[2018-01-19] MEDS: Lisinopril 20 MG TABLET PO SCH ×2 (07:59→21:24)
[2018-01-19] MEDS: *HR* Glimepiride 2 MG TABLET PO SCH (07:59)
[2018-01-19] MEDS: Ketoconazole 2% CRM 15 GM TUBE TP SCH ×2 (08:00→21:25)
[2018-01-19] MEDS: Triamcinolone Acet 0.1% CRM 15 GM TUBE TP SCH ×2 (08:00→21:26)
--- NOTE | 2018-01-19 10:57 | Internal Med Progress Note ---
Date of Encounter: 01/19/18 Time of Encounter: 11:00 - Assessment and plan (1) Cellulitis Current Visit: Yes Status: Acute Assessment and plan: Patient still has erythema with warmth and redness today. Wound cultures positive for MRSA. Will continue IV antibiotics with vanc and cipro. Plan for 1 or 2 more days of antibiotics and plan to discharge on po cipro or bactrim once cellulitis improves Qualifiers: Site of cellulitis: extremity Site of cellulitis of extremity: lower extremity Laterality: unspecified laterality Qualified Code(s): L03.119 - Cellulitis of unspecified part of limb (2) CHF exacerbation Current Visit: Yes Status: Acute Assessment and plan: Patient has increased BLE swelling, weight gain and increased abdominal girth Reporting 30 pound weight gain in the last 2 months Chest x-ray on admission shows pulmonary congestion; Currently euvolemic s/p IV diuresis and has been transitioned to po lasix BID Qualifiers: Heart failure type: unspecified Qualified Code(s): I50.9 - Heart failure, unspecified (3) COPD (chronic obstructive pulmonary disease) Current Visit: Yes Status: Chronic Assessment and plan: History of COPD, not in acute exacerbation Continue DuoNeb scheduled and when necessary. Qualifiers: COPD type: unspecified COPD Qualified Code(s): J44.9 - Chronic obstructive pulmonary disease, unspecified (4) Diabetes mellitus Current Visit: Yes Status: Chronic Assessment and plan: History of poorly controlled diabetes mellitus Blood glucose improving today Continue sliding scale insulin coverage and adjust as needed Qualifiers: Diabetes mellitus type: type 2 Diabetes mellitus shelter insulin use: without shelter use Diabetes mellitus complication status: with unspecified complications Qualified Code(s): E11.8 - Type 2 diabetes mellitus with unspecified complications (5) Hypertension Current Visit: Yes Status: Chronic Assessment and plan: History of HTN, BP stable Continue home anti-HTN medications Monitor BP, had adjunct therapy as needed Qualifiers: Hypertension type: essential hypertension Qualified Code(s): I10 - Essential (primary) hypertension (6) DVT prophylaxis Current Visit: Yes Status: Acute Assessment and plan: Continue SQ heparin (7) CAD (coronary artery disease) Current Visit: Yes Status: Chronic Assessment and plan: History of coronary artery disease Continue Lipitor, lisinopril, beta elena, add aspirin 81 mg daily Qualifiers: Coronary Disease-Associated Artery/Lesion type: [place] artery [place] vs. transplanted heart: [place] heart Associated angina: without angina Qualified Code(s): I25.10 - Atherosclerotic heart disease of [place] coronary artery without angina pectoris - Time Spent With Patient Total time spent is greater than 50% in coordination of care (as documented) at patient's floor/unit and/or counseling patient: - Subjective Interval history: No acute events overnight - Constitutional Vitals: Temp Pulse Resp BP Pulse Ox 97.8 F 81 16 158/83 93 01/19/18 06:50 01/19/18 06:50 01/19/18 10:08 01/19/18 06:50 01/19/18 10:08 General appearance: Present: A&O X 3, no acute distress, obese, answers questions appropriately - Head Head exam: Present: atraumatic, normocephalic - Eye Eye exam: Present: PERRL, conjuntiva pink, sclera anicteric Pupils: Present: PERRL - Neck Neck exam general surgery: Present: supple, trachea midline. Absent: lymphadenopathy - Respiratory Respiratory exam: Present: CTAB. Absent: accessory muscle use, rales, rhonchi, wheezes - Cardiovascular Cardiovascular exam: Present: RRR, +S1, +S2. Absent: diastolic murmur, gallop, rubs, systolic murmur - GI/Abdominal GI/Abdominal exam: Present: normal bowel sounds, soft, no peritoneal signs. Absent: distended, tenderness - Extremities Exam Extremities exam: Present: warm, radial pulses palpable and symmetrical. Absent : calf tenderness, cyanotic, pedal edema - Neurological Exam Neurological exam: Present: CN II-XII intact, oriented X3, no focal deficits. Absent: pronater drift, facial droop, speech deficit - Skin Skin exam: Present: dry, intact Internal Medicine: Result - Labs CBC & Chem 7: 01/19/18 05:23 01/19/18 05:23 Labs: Short CBC 01/19/18 Range/Units 05:23 WBC 9.3 (4.3-11.1) K/mcL Hgb 15.4 (12.9-16.9) g/dL Hct 47.7 (37.5-50.1) % Plt Count 243 (140-400) K/mcL Neutrophils # 6.7 (1.6-8.9) K/mcL BMP 01/19/18 05:23 Sodium 138 Potassium 4.9 Chloride 101 Carbon Dioxide 30 H BUN 18 Creatinine 0.75 Glucose 197 H Calcium 9.5 Consult Discharge Plan - Plan Referrals: Marquis Kwok MD [Primary Care Provider] -
[2018-01-19] MEDS: Ibuprofen 600 MG TABLET PO PRN (14:29)
[2018-01-20] MEDS: Ipratropium/Albuterol Neb 3 ML IH SCH ×4 (03:48→22:03)
[2018-01-20] MEDS: *HR* Heparin 5,000 UNIT/ML VIAL SQ SCH ×2 (06:51→16:32)
[2018-01-20] MEDS: Aspirin 81 MG TAB.CHEW PO SCH (08:39)
[2018-01-20] MEDS: Furosemide 20 MG TABLET PO SCH (08:39)
[2018-01-20] MEDS: Fluconazole 100 MG TABLET PO SCH (08:39)
[2018-01-20] MEDS: *HR* Glimepiride 2 MG TABLET PO SCH (08:39)
[2018-01-20] MEDS: Lisinopril 20 MG TABLET PO SCH (08:39)
[2018-01-20] MEDS: Insulin LISPRO 300 UNITS/3 ML VIAL SQ SCH ×4 (08:40→21:36)
--- NOTE | 2018-01-20 08:48 | Internal Med Progress Note ---
<Sohail Grey - Last Filed: 01/20/18 13:27> Date of Encounter: 01/20/18 Time of Encounter: 08:45 - Assessment and plan (1) Cellulitis Current Visit: Yes Status: Acute Assessment and plan: Patient still has slowly improving erythema with warmth and redness of lower extremities. Wound cultures positive for MRSA. Will discontinue IV Vanc (Day 6) and Cipro. Plan to discharge on Doxy once cellulitis improves Qualifiers: Site of cellulitis: extremity Site of cellulitis of extremity: lower extremity Laterality: unspecified laterality Qualified Code(s): L03.119 - Cellulitis of unspecified part of limb (2) Acute and chronic respiratory failure with hypoxia Current Visit: Yes Status: Acute Assessment and plan: Patient is currently on 4L O2 via NC despite breathing treatments, baseline O2 requirement is 2L at home. Repeat CXR pending Continue Duonebs, Wean O2 as tolerated (3) CHF exacerbation Current Visit: Yes Status: Acute Assessment and plan: Patient has increased BLE swelling, weight gain and increased abdominal girth Reporting 30 pound weight gain in the last 2 months Echo revealed EF 55- 60 % Repeat CXR reveals borderline cardiomegaly and pulmonary vascular congestion, slightly improved from prior exam. Trace left pleural effusion. Currently euvolemic s/p IV diuresis and has been transitioned to po lasix BID Fluid restriction diet Qualifiers: Heart failure type: unspecified Qualified Code(s): I50.9 - Heart failure, unspecified (4) COPD (chronic obstructive pulmonary disease) Current Visit: Yes Status: Chronic Assessment and plan: History of COPD, not in acute exacerbation Continue DuoNeb scheduled when necessary. Qualifiers: COPD type: unspecified COPD Qualified Code(s): J44.9 - Chronic obstructive pulmonary disease, unspecified (5) Diabetes mellitus Current Visit: Yes Status: Chronic Assessment and plan: History of poorly controlled diabetes mellitus Blood glucose monitoring Continue sliding scale insulin coverage and adjust as needed Qualifiers: Diabetes mellitus type: type 2 Diabetes mellitus account associate insulin use: without halfway use Diabetes mellitus complication status: with unspecified complications Qualified Code(s): E11.8 - Type 2 diabetes mellitus with unspecified complications (6) Hypertension Current Visit: Yes Status: Chronic Assessment and plan: History of HTN, BP stable Continue home anti-HTN medications Monitor BP, had adjunct therapy as needed Qualifiers: Hypertension type: essential hypertension Qualified Code(s): I10 - Essential (primary) hypertension (7) CAD (coronary artery disease) Current Visit: Yes Status: Chronic Assessment and plan: History of coronary artery disease Continue Lipitor, lisinopril, beta elena, added aspirin 81 mg daily Qualifiers: Coronary Disease-Associated Artery/Lesion type: [place] artery [place] vs. transplanted heart: [place] heart Associated angina: without angina Qualified Code(s): I25.10 - Atherosclerotic heart disease of [place] coronary artery without angina pectoris (8) DVT prophylaxis Current Visit: Yes Status: Acute Assessment and plan: Continue SQ heparin (9) Morbid obesity with BMI of 40.0-44.9, adult Current Visit: Yes Status: Acute Assessment and plan: Lifestyle modification - Time Spent With Patient Total time spent is greater than 50% in coordination of care (as documented) at patient's floor/unit and/or counseling patient: - Subjective Interval history: Patient seen and examined resting comfortably in bed. Patient reports bruising in lower abd due to Heparin injections. Patient is currently on 4L O2 via NC despite breathing treatments, baseline O2 requirement is 2L at home. Wound cultures are positive for MRSA. - Constitutional Vitals: Temp Pulse Resp BP Pulse Ox 97.6 F 70 20 135/76 95 01/20/18 07:46 01/20/18 07:46 01/20/18 07:46 01/20/18 07:46 01/20/18 07:46 General appearance: Present: A&O X 3, no acute distress, obese, answers questions appropriately - Head Head exam: Present: atraumatic, normocephalic - Eye Eye exam: Present: PERRL, conjuntiva pink, sclera anicteric Pupils: Present: PERRL - ENT ENT exam: Present: mucous membranes moist, normal oropharynx - Neck Neck exam general surgery: Present: supple, trachea midline. Absent: lymphadenopathy - Respiratory Respiratory exam: Present: CTAB. Absent: accessory muscle use, rales, rhonchi, wheezes - Cardiovascular Cardiovascular exam: Present: RRR, +S1, +S2. Absent: diastolic murmur, gallop, rubs, systolic murmur - GI/Abdominal GI/Abdominal exam: Present: normal bowel sounds, soft, no peritoneal signs. Absent: distended, tenderness - Extremities Exam Extremities exam: Present: warm, radial pulses palpable and symmetrical. Absent : calf tenderness, cyanotic, pedal edema - Back Exam Back exam: Present: normal inspection. Absent: paraspinal tenderness, tenderness - Neurological Exam Neurological exam: Present: CN II-XII intact, oriented X3, no focal deficits. Absent: pronater drift, facial droop, speech deficit - Psychiatric Psychiatric exam: Present: normal affect, normal mood - Skin Skin exam: Present: dry, erythema (B/L LE), intact. Absent: normal color Internal Medicine: Result - Labs CBC & Chem 7: 01/19/18 05:23 01/19/18 05:23 - Pulse Oximetry Interpretation Digit-Finger Pulse Oximetry Readin (On 4L O2 via NC) - Impressions ITS Impressions Chest X-Ray 01/20/18 09:03 IMPRESSION: Borderline cardiomegaly and pulmonary vascular congestion, slightly improved from prior exam. Trace left pleural effusion. D/ / Scar Farfan MD / Scar Farfan MD Interpreting Provider: Scar Farfan MD Consult Discharge Plan - Plan Referrals: Marquis Kwok MD [Primary Care Provider] - <Thong Woods - Last Filed: 01/20/18 14:57> Date of Encounter: 01/20/18 - Assessment and plan (1) COPD (chronic obstructive pulmonary disease) Current Visit: Yes Status: Chronic Qualifiers: COPD type: unspecified COPD Qualified Code(s): J44.9 - Chronic obstructive pulmonary disease, unspecified (2) Diabetes mellitus Current Visit: Yes Status: Chronic Qualifiers: Diabetes mellitus type: type 2 Diabetes mellitus halfway insulin use: without halfway use Diabetes mellitus complication status: with unspecified complications Qualified Code(s): E11.8 - Type 2 diabetes mellitus with unspecified complications (3) Hypertension Current Visit: Yes Status: Chronic Qualifiers: Hypertension type: essential hypertension Qualified Code(s): I10 - Essential (primary) hypertension (4) DVT prophylaxis Current Visit: Yes Status: Acute (5) CAD (coronary artery disease) Current Visit: Yes Status: Chronic Qualifiers: Coronary Disease-Associated Artery/Lesion type: [place] artery [place] vs. transplanted heart: [place] heart Associated angina: without angina Qualified Code(s): I25.10 - Atherosclerotic heart disease of [place] coronary artery without angina pectoris (6) Cellulitis Current Visit: Yes Status: Acute Qualifiers: Site of cellulitis: extremity Site of cellulitis of extremity: lower extremity Laterality: unspecified laterality Qualified Code(s): L03.119 - Cellulitis of unspecified part of limb (7) CHF exacerbation Current Visit: Yes Status: Acute Qualifiers: Heart failure type: unspecified Qualified Code(s): I50.9 - Heart failure, unspecified (8) Acute and chronic respiratory failure with hypoxia Current Visit: Yes Status: Acute (9) Morbid obesity with BMI of 40.0-44.9, adult Current Visit: Yes Status: Acute - Time Spent With Patient Total time spent is greater than 50% in coordination of care (as documented) at patient's floor/unit and/or counseling patient: - Constitutional Vitals: Temp Pulse Resp BP Pulse Ox 98.1 F 67 20 140/76 93 01/20/18 11:56 01/20/18 11:56 01/20/18 09:18 01/20/18 11:56 01/20/18 11:56 Internal Medicine: Result - Labs CBC & Chem 7: 01/19/18 05:23 01/19/18 05:23 - Impressions Impressions Chest X-Ray 01/20/18 09:03 IMPRESSION: Borderline cardiomegaly and pulmonary vascular congestion, slightly improved from prior exam. Trace left pleural effusion. D/ / Scar Farfan MD / Scar Farfan MD Interpreting Provider: Scar Farfan MD - Attending Attestation I performed an independent interview and examine this patient. I agree with the findings, assessment, and plan of Dr. Grey, internal medicine resident. Patient is improving. We will need to titrate his oxygen. Lasix is now changed to oral. He appears to be slowly compensating. He does have chronic venous stasis of bilateral lower extremities. I am not entirely convinced she does have acute cellulitis. He does have MRSA growing from the wounds. He was transitioned to oral doxycycline. He will need close follow-up with his primary care provider. Services has been following. Despite discharge 1-2 days. Increase activity as tolerated. He will need wound care follow-up on discharge. All else as outlined above.
[2018-01-20] MEDS: Triamcinolone Acet 0.1% CRM 15 GM TUBE TP SCH ×2 (16:16→21:35)
[2018-01-20] MEDS: Ketoconazole 2% CRM 15 GM TUBE TP SCH ×2 (16:17→21:42)
[2018-01-20] MEDS: Doxycycline 100 MG CAPSULE PO SCH ×2 (16:32→21:35)
[2018-01-20] MEDS ORDERED: Aminoglycoside Consult 1 EACH MC ONE (17:14)
[2018-01-20] MEDS ORDERED: Ibuprofen 600 MG TABLET PO PRN (21:40)
[2018-01-21] MEDS: Ipratropium/Albuterol Neb 3 ML IH SCH ×3 (04:32→15:28)
[2018-01-21 05:40] LABS: Hematocrit 46.4 % (37.5-50.1); Hemoglobin 14.9 g/dL (12.9-16.9); Mean Corpuscular HGB Conc 32.1 g/dL (31.6-35.5); Mean Corpuscular Hemoglobin 28.5 pg (28.0-33.3); Mean Corpuscular Volume 88.9 fL (83.0-100.0); Platelet Count 236 K/mcL (140-400); Red Blood Count 5.22 M/mcL (4.19-5.50); Red Cell Distribution Width 15.8 % (11.5-14.5)
[2018-01-21 05:55] LABS: BUN/Creatinine Ratio 26 (6-26); Blood Urea Nitrogen 19 mg/dL (6-20); Calcium 9.5 mg/dL (8.6-10.3); Carbon Dioxide 28 mEq/L (23-29); Chloride 105 mEq/L (98-107); Glucose 104 mg/dL (70-105); Osmolality,Calculated 291 (280-300); Potassium 4.6 mEq/L (3.5-5.1); Sodium 139 mEq/L (136-145); eGFR For African Americans > 60 (> 60); eGFR For Non-African Americans > 60 (> 60)
[2018-01-21] MEDS: *HR* Heparin 5,000 UNIT/ML VIAL SQ SCH (06:24)
--- NOTE | 2018-01-21 07:40 | Discharge Summary ---
<Sohail Grey - Last Filed: 01/21/18 10:51> - NOTES TO OUTPATIENT PROVIDER Notes to Outpatient Provider: Chronic venous stasis of bilateral lower extremities and acute cellulitis with MRSA growing from the wounds. He was transitioned to oral doxycycline. He will need close follow-up with his primary care provider. Date of Encounter: 01/21/18 Time of Encounter: 07:38 - Discharge Diagnosis (1) Cellulitis Priority: Primary Status: Acute Assessment and Plan: Patient still has slowly improving erythema with warmth and redness of lower extremities. Wound cultures positive for MRSA. Will discontinue IV Vanc (Day 6) and Cipro. Plan to discharge on Doxy once cellulitis improves Qualifiers: Site of cellulitis: extremity Site of cellulitis of extremity: lower extremity Laterality: unspecified laterality Qualified Code(s): L03.119 - Cellulitis of unspecified part of limb (2) CHF exacerbation Priority: Primary Status: Acute Assessment and Plan: Patient has increased BLE swelling, weight gain and increased abdominal girth Reporting 30 pound weight gain in the last 2 months Echo revealed EF 55- 60 % Repeat CXR reveals borderline cardiomegaly and pulmonary vascular congestion, slightly improved from prior exam. Trace left pleural effusion. Currently euvolemic s/p IV diuresis and has been transitioned to po lasix BID Fluid restriction diet Qualifiers: Heart failure type: unspecified Qualified Code(s): I50.9 - Heart failure, unspecified (3) Acute and chronic respiratory failure with hypoxia Priority: Primary Status: Acute Assessment and Plan: Patient is currently on 4L O2 via NC despite breathing treatments, baseline O2 requirement is 2L at home. Repeat CXR pending Continue Duonebs, Wean O2 as tolerated (4) COPD (chronic obstructive pulmonary disease) Priority: Secondary Status: Chronic Assessment and Plan: History of COPD, not in acute exacerbation Continue DuoNeb scheduled when necessary. Qualifiers: COPD type: unspecified COPD Qualified Code(s): J44.9 - Chronic obstructive pulmonary disease, unspecified (5) Diabetes mellitus Priority: Secondary Status: Chronic Assessment and Plan: History of poorly controlled diabetes mellitus Blood glucose monitoring Continue sliding scale insulin coverage and adjust as needed Qualifiers: Diabetes mellitus type: type 2 Diabetes mellitus termite exterminator helper insulin use: without custodial use Diabetes mellitus complication status: with unspecified complications Qualified Code(s): E11.8 - Type 2 diabetes mellitus with unspecified complications (6) Hypertension Priority: Secondary Status: Chronic Assessment and Plan: History of HTN, BP stable Continue home anti-HTN medications Monitor BP, had adjunct therapy as needed Qualifiers: Hypertension type: essential hypertension Qualified Code(s): I10 - Essential (primary) hypertension (7) CAD (coronary artery disease) Priority: Secondary Status: Chronic Assessment and Plan: History of coronary artery disease Continue Lipitor, lisinopril, beta elena, added aspirin 81 mg daily Qualifiers: Coronary Disease-Associated Artery/Lesion type: [place] artery [place] vs. transplanted heart: [place] heart Associated angina: without angina Qualified Code(s): I25.10 - Atherosclerotic heart disease of [place] coronary artery without angina pectoris (8) DVT prophylaxis Priority: Secondary Status: Acute Assessment and Plan: Continue SQ heparin (9) Morbid obesity with BMI of 40.0-44.9, adult Priority: Secondary Status: Acute Assessment and Plan: Lifestyle modification Hospital course: Mr. Bonilla is a 58 year old male Discharge discussed with: patient, nurse, social work, case management - Time Spent with Patient Total time spent providing and/or coordinating discharge services: - Discharge Medications Prescriptions: Aspirin 81 mg PO DAILY #30 tab.chew Doxycycline 100 mg PO BID #7 capsule Ketoconazole 2% CRM [Nizoral Cream] 1 appl TP BID #1 tube Home Medications: Atorvastatin [Lipitor] 40 mg PO HS 01/14/18 [History] Enalapril Maleate [Vasotec] 20 mg PO BID 01/14/18 [History] Furosemide [Lasix] 20 mg PO DAILY 01/14/18 [History] Glimepiride [Amaryl] 2 mg PO 0800 01/14/18 [History] Metoprolol Tartrate [Lopressor] 25 mg PO BID 01/14/18 [History] Tamsulosin HCl [Flomax] 0.4 mg PO DAILY 01/14/18 [History] Triamcinolone Acet 0.1% CRM [Kenalog] 1 appl TP BID 01/14/18 [History] metFORMIN [Glucophage] 1,000 mg PO BIDWM 01/14/18 [History] Aspirin 81 mg PO DAILY #30 tab.chew 01/21/18 [Rx] Doxycycline 100 mg PO BID #7 capsule 01/21/18 [Rx] Ketoconazole 2% CRM [Nizoral Cream] 1 appl TP BID #1 tube 01/21/18 [Rx] Allergies/Adverse Reactions: 3 Allergy/AdvReac Type Severity Reaction Status Date / Time acetaminophen [From Percocet] AdvReac Itching Verified 01/13/18 23:10 Oxycodone [From Percocet] AdvReac Itching Verified 01/13/18 23:10 Date of admission: 01/14/18 04:05 Primary care physician: Marquis Kwok MD Consults: 01/15/18 11:09 Consult to Testing Tech [CONS] Routine Reason for SW Consult: Home oxygen needs Consult to Wound Care [CONS] Routine Reason for Consult: BLE wounds Call Completed: No 01/20/18 14:04 Consult to Physical Therapy [CONS] Routine Comment: Evaluate, develop and implement POC Reason for Consult: Eval for home health needs Does patient have active BEDREST order?: No Is patient medically & hemodynamically stable?: Yes Patient assessed for mobility or mobilized this visit?: No OT [Consult to Occupational Therapy] [CONS] Routine Comment: Evaluate, develop and implement POC Reason for Consult: Eval for home health needs Does patient have active BEDREST order?: No Is patient medically & hemodynamically stable?: Yes Patient assessed for mobility or mobilized this visit?: No Discharging clinician: Sohail Grey Anticipated date of discharge: 01/21/18 - Constitutional Vitals: Temp Pulse Resp BP Pulse Ox 97.8 F 82 18 129/65 94 01/21/18 04:17 01/21/18 04:17 01/21/18 04:32 01/21/18 04:17 01/21/18 04:32 General appearance: Present: cooperative, A&O X 3, morbidly obese, no acute distress, obese, answers questions appropriately - Head Head exam: Present: atraumatic, normocephalic - Eye Eye exam: Present: PERRL, conjuntiva pink, sclera anicteric Pupils: Present: PERRL - ENT ENT exam: Present: mucous membranes moist, normal oropharynx - Neck Neck exam general surgery: Present: supple, trachea midline. Absent: lymphadenopathy - Respiratory Respiratory exam: Present: CTAB. Absent: accessory muscle use, rales, rhonchi, wheezes - Cardiovascular Cardiovascular exam: Present: RRR, +S1, +S2. Absent: diastolic murmur, gallop, rubs, systolic murmur - GI/Abdominal GI/Abdominal exam: Present: normal bowel sounds, soft, no peritoneal signs. Absent: distended, tenderness - Extremities Exam Extremities exam: Present: warm, radial pulses palpable and symmetrical. Absent : calf tenderness, cyanotic, pedal edema - Back Exam Back exam: Present: normal inspection. Absent: paraspinal tenderness, tenderness - Neurological Exam Neurological exam: Present: CN II-XII intact, oriented X3, no focal deficits. Absent: pronater drift, facial droop, speech deficit - Psychiatric Psychiatric exam: Present: normal affect, normal mood - Skin Skin exam: Present: dry, erythema (chronic venous stasis B/L LE), intact - Patient Status Disposition: Home, Self-Care Condition: Good Functional capacity at discharge: independent ambulation Overall status at discharge: patient is progressing back to baseline - Discharge Instructions Instructions: Doxycycline (By mouth), Aspirin (By mouth), Ketoconazole (By mouth), Heart Failure (DC), Acute Respiratory Distress Syndrome (DC), Methicillin Resistant Staphylococcus Aureus (DC), Cellulitis (DC), Diabetes Mellitus Type 2 in Adults (DC), Chronic Obstructive Pulmonary Disease (DC), Chronic Hypertension (DC) Follow Up With: Charles Anderson DPM [Partnered Physician] - 01/22/18 3:00 pm Marquis Kwok MD [Primary Care Provider] - 02/02/18 2:30 pm () - Diet and Activity Activity: as per physical therapy, increase activity as tolerated, resume usual activities as tolerated, wear oxygen at all times Diet: diabetic diet (Fluid restriction diet < 1.5 Liters daily) <Thong Woods - Last Filed: 01/21/18 16:28> Date of Encounter: 01/21/18 - Discharge Diagnosis (1) COPD (chronic obstructive pulmonary disease) Status: Chronic Qualifiers: COPD type: unspecified COPD Qualified Code(s): J44.9 - Chronic obstructive pulmonary disease, unspecified (2) Diabetes mellitus Status: Chronic Qualifiers: Diabetes mellitus type: type 2 Diabetes mellitus custodial insulin use: without termite exterminator helper use Diabetes mellitus complication status: with unspecified complications Qualified Code(s): E11.8 - Type 2 diabetes mellitus with unspecified complications (3) Hypertension Status: Chronic Qualifiers: Hypertension type: essential hypertension Qualified Code(s): I10 - Essential (primary) hypertension (4) DVT prophylaxis Status: Acute (5) CAD (coronary artery disease) Status: Chronic Qualifiers: Coronary Disease-Associated Artery/Lesion type: [place] artery [place] vs. transplanted heart: [place] heart Associated angina: without angina Qualified Code(s): I25.10 - Atherosclerotic heart disease of [place] coronary artery without angina pectoris (6) Cellulitis Status: Acute Qualifiers: Site of cellulitis: extremity Site of cellulitis of extremity: lower extremity Laterality: unspecified laterality Qualified Code(s): L03.119 - Cellulitis of unspecified part of limb (7) CHF exacerbation Status: Acute Qualifiers: Heart failure type: unspecified Qualified Code(s): I50.9 - Heart failure, unspecified (8) Acute and chronic respiratory failure with hypoxia Status: Acute (9) Morbid obesity with BMI of 40.0-44.9, adult Status: Acute Hospital course: Mr. Bonilla is a 58 year old male - Time Spent with Patient Total time spent providing and/or coordinating discharge services: Date of admission: 01/14/18 04:05 Primary care physician: Marquis Kwok MD Consults: 01/15/18 11:09 Consult to Testing Tech [CONS] Routine Reason for SW Consult: Home oxygen needs Consult to Wound Care [CONS] Routine Reason for Consult: BLE wounds Call Completed: No - Constitutional Vitals: Temp Pulse Resp BP Pulse Ox 97.8 F 73 18 108/56 92 01/21/18 04:17 01/21/18 11:47 01/21/18 11:47 01/21/18 11:47 01/21/18 11:47 - Attending Attestation I performed an independent interview and exam of this patient. I agree with the findings, assessment, and plan of Dr. Grey, internal medicine resident. Patient appears to be compensated with regards to a CHF perspective. He is now on oral diuretics. Patient is doing well clinically but is still requiring significant amounts of oxygen. Slightly more than his baseline, which may actually be a new baseline. Patient will continue on doxycycline for cellulitis of his extremities. We will recommend elevation of legs as needed for chronic venous insufficiency and compression stockings. Patient is otherwise hemodynamically stable, and stable for discharge. 42 minutes spent on discharge and coordination of care. Patient will need close follow-up with his primary care provider. CHF core measures: Echo done 01/14/2018 showed normal EF of 35-60%. Mild diastolic dysfunction. Mild to moderate pulmonary hypertension with an estimated RSVP of 46 mmHg Nonsmoker Jody anderson Pt is on a beta elena REGAN inhibitor ordered CHF discharge instructions
[2018-01-21] MEDS ORDERED: Lisinopril 20 MG TABLET PO SCH (09:00)
[2018-01-21] MEDS: *HR* Glimepiride 2 MG TABLET PO SCH (09:27)
[2018-01-21] MEDS: Furosemide 20 MG TABLET PO SCH (09:27)
[2018-01-21] MEDS: Fluconazole 100 MG TABLET PO SCH (09:27)
[2018-01-21] MEDS: Doxycycline 100 MG CAPSULE PO SCH (09:27)
[2018-01-21] MEDS: Aspirin 81 MG TAB.CHEW PO SCH (09:27)
[2018-01-21] MEDS: Ketoconazole 2% CRM 15 GM TUBE TP SCH (09:28)
[2018-01-21] MEDS: Triamcinolone Acet 0.1% CRM 15 GM TUBE TP SCH (09:28)
[2018-01-21] MEDS: Insulin LISPRO 300 UNITS/3 ML VIAL SQ SCH ×2 (09:28→12:13)
[2018-01-21 11:51] VITALS: BP 108/56
== END 2018-01-21 17:15 | disposition home or self-care (01) | DRG 291 ==
LOC: EMEROO 22:54 → 3NENU 22:54 → SUATTDRO 01-14 04:05 → 3NENU 01-14 04:13 → 2NENU 01-19 12:00
PROVIDERS: ADMIT Family Medicine; ATTEND Hospitalist

== ENCOUNTER 2019-05-29 13:24 | Inpatient (IN) ==
[2019-05-29] MEDS ORDERED: Piperacillin/Tazobactam 3.375 GM in Water for inj. (sterile) 20 ML IVP ONE (14:06)
[2019-05-29] MEDS ORDERED: Piperacillin/Tazobactam 3.375 GM in 0.9 % Sodium Chloride Mini Bag 100 ML IVPB ONE (14:12)
[2019-05-29] MEDS ORDERED: 0.9 % Sodium Chloride 1,000 ML IVC ONE (15:13)
[2019-05-29] MEDS ORDERED: Isovue-370 500 ML BOTTLE IVP ONE (15:13)
[2019-05-29] MEDS ORDERED: *HR* HYDROmorphone (PF) 1 MG/ML SYRINGE IVP ONE (15:13)
[2019-05-29 15:19] LABS: Basophils # 0.1 K/mcL (0.0-0.2); Basophils % 0.6 %; Eosinophils # 0.3 K/mcL (0.0-0.6); Eosinophils % 2.5 %; Hematocrit 47.3 % (37.5-50.1); Hemoglobin 14.6 g/dL (12.9-16.9); Immature Granulocytes % 0.5 % (0-4); Lymphocytes # 1.1 K/mcL (0.6-4.6); Lymphocytes % 10.1 %; Mean Corpuscular HGB Conc 30.9 g/dL (31.6-35.5); Mean Corpuscular Hemoglobin 27.1 pg (28.0-33.3); Mean Corpuscular Volume 87.9 fL (83.0-100.0); Mean Platelet Volume 9.9 fL (9.4-12.4); Monocytes # 0.7 K/mcL (0.0-1.3); Monocytes % 6.5 %; Neutrophils # 8.8 K/mcL (1.6-8.9); Platelet Count 336 K/mcL (140-400); Red Blood Count 5.38 M/mcL (4.19-5.50); Segmented Neutrophils % 79.8 %
[2019-05-29 15:23] LABS: BUN/Creatinine Ratio 14 (6-26); Blood Urea Nitrogen 12 mg/dL (6-20); Calcium 8.6 mg/dL (8.6-10.3); Carbon Dioxide 33 mEq/L (23-29); Chloride 98 mEq/L (98-107); Glucose 83 mg/dL (70-105); Osmolality,Calculated 285 (280-300); Potassium 3.9 mEq/L (3.5-5.1); Sodium 138 mEq/L (136-145); eGFR For African Americans > 60 (> 60); eGFR For Non-African Americans > 60 (> 60)
[2019-05-29] MEDS ORDERED: *HR* Heparin 5,000 UNIT/ML VIAL IVP PRN ×2 (16:13)
[2019-05-29] MEDS ORDERED: Aspirin 81 MG TAB.CHEW PO STA (16:13)
[2019-05-29] MEDS ORDERED: *HR* Heparin 5,000 UNIT/ML VIAL IVP ONE (16:13)
[2019-05-29 16:18] LABS: Creatine Kinase 35 Units/L (30-223)
[2019-05-29] MEDS ORDERED: *HR* Metoprolol 5 MG/5 ML VIAL IVP ONE (16:42)
[2019-05-29] MEDS: Heparin 25,000 UNIT/250 ML D5W 25,000 UNIT/250 ML IV.SOLN IVC SCH (16:59)
[2019-05-29] MEDS ORDERED: Ondansetron 4 MG/2 ML VIAL IVP PRN (17:23)
[2019-05-29] MEDS ORDERED: Naloxone 0.4 MG/ML INJ IVP PRN (17:23)
[2019-05-29] MEDS ORDERED: *HR* Dextrose 50 % in Water (Syg) 50 ML SYRINGE IVP PRN (17:27)
[2019-05-29] MEDS ORDERED: D5% in Water 1,000 ML IVC PRN (17:27)
[2019-05-29] MEDS ORDERED: Dextrose Gel 15 GM/37.5 ML TUBE PO PRN ×2 (17:27)
[2019-05-29] MEDS ORDERED: Ipratropium/Albuterol Neb 3 ML IH PRN (17:28)
[2019-05-29] MEDS ORDERED: Furosemide 40 MG/4 ML VIAL IVP ONE (17:44)
[2019-05-29 18:13] LABS: Heparin anti-factor XA UFH 0.32 IU/mL (0.30-0.70); INR 1.2; Prothrombin Time 13.4 Seconds (9.4-12.1)
[2019-05-29] MEDS ORDERED: Furosemide 20 MG TABLET PO SCH (21:00)
[2019-05-29] MEDS: predniSONE 20 MG TABLET PO SCH (22:02)
[2019-05-29] MEDS: Lisinopril 20 MG TABLET PO SCH (22:02)
[2019-05-29] MEDS: Triamcinolone Acet 0.1% CRM 15 GM TUBE TP SCH (22:07)
[2019-05-29] MEDS: Ipratropium/Albuterol Neb 3 ML IH SCH (22:19)
[2019-05-30] MEDS: Ipratropium/Albuterol Neb 3 ML IH SCH ×4 (03:21→22:21)
[2019-05-30 04:10] LABS: Eosinophils % 0.1 %; Immature Granulocytes % 0.7 % (0-4); Mean Platelet Volume 10.2 fL (9.4-12.4); Monocytes % 1.6 %
[2019-05-30 04:12] LABS: Basophils % 0.4 %; Hematocrit 50.6 % (37.5-50.1); Hemoglobin 15.1 g/dL (12.9-16.9); Lymphocytes # 0.6 K/mcL (0.6-4.6); Lymphocytes % 6.3 %; Mean Corpuscular HGB Conc 29.8 g/dL (31.6-35.5); Mean Corpuscular Hemoglobin 26.9 pg (28.0-33.3); Monocytes # 0.2 K/mcL (0.0-1.3); Neutrophils # 9.3 K/mcL (1.6-8.9); Platelet Count 316 K/mcL (140-400); Red Blood Count 5.62 M/mcL (4.19-5.50); Red Cell Distribution Width 17.2 % (11.5-14.5); Segmented Neutrophils % 90.9 %; White Blood Count 10.2 K/mcL (4.3-11.1)
[2019-05-30 04:35] LABS: Anisocytosis 1+ (Not Present); Large Platelets Present (Not Present); Platelet Estimate Normal (Normal)
[2019-05-30 04:42] LABS: BUN/Creatinine Ratio 16 (6-26); Blood Urea Nitrogen 14 mg/dL (6-20); Calcium 8.9 mg/dL (8.6-10.3); Carbon Dioxide 36 mEq/L (23-29); Chloride 97 mEq/L (98-107); Glucose 178 mg/dL (70-105); Magnesium 2.2 mg/dL (1.6-2.6); Osmolality,Calculated 289 (280-300); Potassium 5.2 mEq/L (3.5-5.1); Sodium 137 mEq/L (136-145); eGFR For African Americans > 60 (> 60); eGFR For Non-African Americans > 60 (> 60)
[2019-05-30] MEDS: Insulin LISPRO 300 UNITS/3 ML VIAL SQ SCH ×3 (10:25→16:37)
[2019-05-30] MEDS: Furosemide 20 MG TABLET PO SCH (11:10)
[2019-05-30] MEDS: Triamcinolone Acet 0.1% CRM 15 GM TUBE TP SCH ×2 (11:10→20:33)
[2019-05-30] MEDS: predniSONE 20 MG TABLET PO SCH (11:10)
[2019-05-30] MEDS: Heparin 25,000 UNIT/250 ML D5W 25,000 UNIT/250 ML IV.SOLN IVC SCH (11:13)
[2019-05-30] MEDS ORDERED: Perflutren Lipid Microsphere 1.3 ML in 0.9 % Sodium Chloride 8.7 ML IVP ONE (13:44)
[2019-05-30] MEDS ORDERED: Perflutren Lipid Microsphere 2 ML VIAL ONE (13:47)
[2019-05-31] MEDS: Heparin 25,000 UNIT/250 ML D5W 25,000 UNIT/250 ML IV.SOLN IVC SCH (00:04)
[2019-05-31 03:59] LABS: Basophils # 0.1 K/mcL (0.0-0.2); Basophils % 0.4 %; Eosinophils # 0.1 K/mcL (0.0-0.6); Eosinophils % 0.9 %; Hematocrit 41.8 % (37.5-50.1); Immature Granulocytes % 0.5 % (0-4); Lymphocytes # 1.5 K/mcL (0.6-4.6); Lymphocytes % 12.5 %; Mean Corpuscular HGB Conc 29.2 g/dL (31.6-35.5); Mean Corpuscular Hemoglobin 26.5 pg (28.0-33.3); Mean Corpuscular Volume 90.9 fL (83.0-100.0); Mean Platelet Volume 9.6 fL (9.4-12.4); Monocytes # 0.9 K/mcL (0.0-1.3); Monocytes % 7.3 %; Neutrophils # 9.2 K/mcL (1.6-8.9); Platelet Count 289 K/mcL (140-400); Red Cell Distribution Width 16.7 % (11.5-14.5); Segmented Neutrophils % 78.4 %; White Blood Count 11.7 K/mcL (4.3-11.1)
[2019-05-31 04:05] LABS: Hemoglobin 12.2 g/dL (12.9-16.9)
[2019-05-31 04:08] LABS: BUN/Creatinine Ratio 19 (6-26); Blood Urea Nitrogen 15 mg/dL (6-20); Calcium 8.6 mg/dL (8.6-10.3); Carbon Dioxide 35 mEq/L (23-29); Chloride 99 mEq/L (98-107); Glucose 97 mg/dL (70-105); Osmolality,Calculated 287 (280-300); Potassium 4.5 mEq/L (3.5-5.1); Sodium 138 mEq/L (136-145); eGFR For African Americans > 60 (> 60); eGFR For Non-African Americans > 60 (> 60)
[2019-05-31] MEDS: Ipratropium/Albuterol Neb 3 ML IH SCH ×5 (04:33→22:41)
[2019-05-31] MEDS ORDERED: Saline Nasal Spray 44 ML BOTTLE NS PRN (04:55)
[2019-05-31] MEDS: Insulin LISPRO 300 UNITS/3 ML VIAL SQ SCH ×3 (08:16→18:32)
[2019-05-31] MEDS: Lisinopril 20 MG TABLET PO SCH (08:17)
[2019-05-31] MEDS: predniSONE 20 MG TABLET PO SCH (08:17)
[2019-05-31] MEDS: Triamcinolone Acet 0.1% CRM 15 GM TUBE TP SCH ×2 (08:17→20:40)
[2019-05-31] MEDS: Furosemide 20 MG TABLET PO SCH (08:18)
[2019-05-31] MEDS ORDERED: Furosemide 20 MG/2 ML VIAL IVP ONE (08:38)
[2019-05-31 09:21] LABS: Hematocrit 42.6 % (37.5-50.1); Hemoglobin 13.2 g/dL (12.9-16.9)
[2019-05-31] MEDS ORDERED: Furosemide 40 MG/4 ML VIAL IVP SCH ×2 (10:00→16:00)
[2019-05-31] MEDS: Furosemide 40 MG/4 ML VIAL IVP SCH (18:31)
[2019-05-31] MEDS: traMADol 50 MG TABLET PO PRN (20:39)
[2019-06-01] MEDS: traMADol 50 MG TABLET PO PRN (03:12)
[2019-06-01] MEDS: Ipratropium/Albuterol Neb 3 ML IH SCH ×4 (03:26→23:22)
[2019-06-01] MEDS: *HR* Heparin 5,000 UNIT/ML VIAL SQ SCH ×2 (05:20→17:38)
[2019-06-01 06:57] LABS: Basophils # 0.1 K/mcL (0.0-0.2); Basophils % 0.6 %; Eosinophils # 0.2 K/mcL (0.0-0.6); Hematocrit 42.7 % (37.5-50.1); Hemoglobin 12.9 g/dL (12.9-16.9); Immature Granulocytes % 0.2 % (0-4); Lymphocytes # 1.8 K/mcL (0.6-4.6); Lymphocytes % 18.6 %; Mean Corpuscular HGB Conc 30.2 g/dL (31.6-35.5); Mean Corpuscular Hemoglobin 26.9 pg (28.0-33.3); Mean Platelet Volume 9.8 fL (9.4-12.4); Monocytes # 0.7 K/mcL (0.0-1.3); Monocytes % 7.4 %; Neutrophils # 6.7 K/mcL (1.6-8.9); Platelet Count 300 K/mcL (140-400); Red Cell Distribution Width 16.8 % (11.5-14.5); Segmented Neutrophils % 71.2 %; White Blood Count 9.4 K/mcL (4.3-11.1)
[2019-06-01 07:23] LABS: BUN/Creatinine Ratio 19 (6-26); Blood Urea Nitrogen 15 mg/dL (6-20); Calcium 8.6 mg/dL (8.6-10.3); Carbon Dioxide 37 mEq/L (23-29); Chloride 98 mEq/L (98-107); Glucose 98 mg/dL (70-105); Osmolality,Calculated 293 (280-300); Potassium 4.2 mEq/L (3.5-5.1); Sodium 141 mEq/L (136-145); eGFR For African Americans > 60 (> 60); eGFR For Non-African Americans > 60 (> 60)
[2019-06-01] MEDS: Insulin LISPRO 300 UNITS/3 ML VIAL SQ SCH ×3 (09:17→17:38)
[2019-06-01] MEDS: Lisinopril 20 MG TABLET PO SCH (09:38)
[2019-06-01] MEDS: predniSONE 20 MG TABLET PO SCH (09:39)
[2019-06-01] MEDS: Triamcinolone Acet 0.1% CRM 15 GM TUBE TP SCH ×2 (09:39→20:59)
[2019-06-01] MEDS: Furosemide 40 MG/4 ML VIAL IVP SCH ×2 (09:39→17:37)
[2019-06-02] MEDS: traMADol 50 MG TABLET PO PRN ×2 (04:21→22:28)
[2019-06-02] MEDS: Ipratropium/Albuterol Neb 3 ML IH SCH ×4 (04:25→22:16)
[2019-06-02 06:08] LABS: Basophils % 0.4 %; Eosinophils # 0.2 K/mcL (0.0-0.6); Eosinophils % 1.9 %; Hematocrit 41.5 % (37.5-50.1); Hemoglobin 12.6 g/dL (12.9-16.9); Immature Granulocytes % 0.4 % (0-4); Lymphocytes # 1.7 K/mcL (0.6-4.6); Lymphocytes % 17.5 %; Mean Corpuscular HGB Conc 30.4 g/dL (31.6-35.5); Mean Corpuscular Hemoglobin 26.4 pg (28.0-33.3); Mean Corpuscular Volume 86.8 fL (83.0-100.0); Monocytes # 0.9 K/mcL (0.0-1.3); Monocytes % 9.1 %; Neutrophils # 6.9 K/mcL (1.6-8.9); Platelet Count 292 K/mcL (140-400); Red Blood Count 4.78 M/mcL (4.19-5.50); Red Cell Distribution Width 16.2 % (11.5-14.5); Segmented Neutrophils % 70.7 %; White Blood Count 9.7 K/mcL (4.3-11.1)
[2019-06-02] MEDS: *HR* Heparin 5,000 UNIT/ML VIAL SQ SCH ×2 (06:18→17:26)
[2019-06-02 06:34] LABS: BUN/Creatinine Ratio 27 (6-26); Blood Urea Nitrogen 21 mg/dL (6-20); Calcium 8.9 mg/dL (8.6-10.3); Carbon Dioxide 40 mEq/L (23-29); Chloride 96 mEq/L (98-107); Glucose 99 mg/dL (70-105); Osmolality,Calculated 291 (280-300); Potassium 4.4 mEq/L (3.5-5.1); Sodium 139 mEq/L (136-145); eGFR For African Americans > 60 (> 60); eGFR For Non-African Americans > 60 (> 60)
[2019-06-02] MEDS: Insulin LISPRO 300 UNITS/3 ML VIAL SQ SCH ×4 (07:46→23:38)
[2019-06-02] MEDS: predniSONE 20 MG TABLET PO SCH (09:18)
[2019-06-02] MEDS: Lisinopril 20 MG TABLET PO SCH (09:18)
[2019-06-02] MEDS: Furosemide 40 MG/4 ML VIAL IVP SCH (09:18)
[2019-06-02] MEDS: Triamcinolone Acet 0.1% CRM 15 GM TUBE TP SCH ×2 (09:19→22:29)
[2019-06-02] MEDS ORDERED: Aminoglycoside Consult 1 EACH MC ONE (10:21)
[2019-06-02] MEDS: Doxycycline 100 MG CAPSULE PO SCH (22:28)
[2019-06-03] MEDS: Ipratropium/Albuterol Neb 3 ML IH SCH ×4 (04:07→21:43)
[2019-06-03] MEDS: *HR* Heparin 5,000 UNIT/ML VIAL SQ SCH ×2 (05:00→17:02)
[2019-06-03 05:27] LABS: BUN/Creatinine Ratio 26 (6-26); Blood Urea Nitrogen 20 mg/dL (6-20); Calcium 8.8 mg/dL (8.6-10.3); Carbon Dioxide 36 mEq/L (23-29); Chloride 97 mEq/L (98-107); Glucose 93 mg/dL (70-105); Osmolality,Calculated 288 (280-300); Potassium 4.4 mEq/L (3.5-5.1); Sodium 138 mEq/L (136-145); eGFR For African Americans > 60 (> 60); eGFR For Non-African Americans > 60 (> 60)
[2019-06-03] MEDS: Insulin LISPRO 300 UNITS/3 ML VIAL SQ SCH ×4 (07:36→21:20)
[2019-06-03] MEDS: Furosemide 40 MG/4 ML VIAL IVP SCH ×2 (09:00→21:19)
[2019-06-03] MEDS: Doxycycline 100 MG CAPSULE PO SCH ×2 (09:01→21:19)
[2019-06-03] MEDS: predniSONE 20 MG TABLET PO SCH (09:02)
[2019-06-03] MEDS: Lisinopril 20 MG TABLET PO SCH (09:02)
[2019-06-03] MEDS: Triamcinolone Acet 0.1% CRM 15 GM TUBE TP SCH ×2 (09:16→21:20)
[2019-06-03] MEDS: traMADol 50 MG TABLET PO PRN (21:18)
[2019-06-04] MEDS: traMADol 50 MG TABLET PO PRN ×2 (03:17→23:45)
[2019-06-04] MEDS: Ipratropium/Albuterol Neb 3 ML IH SCH ×4 (03:39→22:32)
[2019-06-04] MEDS: *HR* Heparin 5,000 UNIT/ML VIAL SQ SCH ×2 (05:42→16:58)
[2019-06-04 06:16] LABS: BUN/Creatinine Ratio 25 (6-26); Blood Urea Nitrogen 22 mg/dL (6-20); Calcium 8.9 mg/dL (8.6-10.3); Carbon Dioxide 37 mEq/L (23-29); Chloride 97 mEq/L (98-107); Glucose 193 mg/dL (70-105); Osmolality,Calculated 301 (280-300); Potassium 4.3 mEq/L (3.5-5.1); Sodium 141 mEq/L (136-145); eGFR For African Americans > 60 (> 60); eGFR For Non-African Americans > 60 (> 60)
[2019-06-04] MEDS: Doxycycline 100 MG CAPSULE PO SCH ×2 (07:31→20:29)
[2019-06-04] MEDS: Furosemide 40 MG/4 ML VIAL IVP SCH ×2 (07:31→20:29)
[2019-06-04] MEDS: Lisinopril 20 MG TABLET PO SCH (07:31)
[2019-06-04] MEDS: Insulin LISPRO 300 UNITS/3 ML VIAL SQ SCH ×4 (07:33→20:30)
[2019-06-04] MEDS: Triamcinolone Acet 0.1% CRM 15 GM TUBE TP SCH ×2 (11:13→20:29)
[2019-06-04] MEDS: Nystatin POWDER 30 GM BOTTLE TP SCH (23:38)
[2019-06-05] MEDS: Ipratropium/Albuterol Neb 3 ML IH SCH (03:53)
[2019-06-05] MEDS: *HR* Heparin 5,000 UNIT/ML VIAL SQ SCH (05:51)
[2019-06-05 06:48] LABS: BUN/Creatinine Ratio 35 (6-26); Blood Urea Nitrogen 28 mg/dL (6-20); Calcium 8.7 mg/dL (8.6-10.3); Carbon Dioxide 36 mEq/L (23-29); Chloride 98 mEq/L (98-107); Glucose 175 mg/dL (70-105); Osmolality,Calculated 296 (280-300); Potassium 4.5 mEq/L (3.5-5.1); Sodium 138 mEq/L (136-145); eGFR For African Americans > 60 (> 60); eGFR For Non-African Americans > 60 (> 60)
[2019-06-05 07:13] VITALS: BP 130/73
[2019-06-05] MEDS: Furosemide 40 MG/4 ML VIAL IVP SCH (07:39)
[2019-06-05] MEDS: Insulin LISPRO 300 UNITS/3 ML VIAL SQ SCH (07:40)
[2019-06-05] MEDS: Nystatin POWDER 30 GM BOTTLE TP SCH (07:41)
[2019-06-05] MEDS: Triamcinolone Acet 0.1% CRM 15 GM TUBE TP SCH (07:44)
[2019-06-05] MEDS: Lisinopril 20 MG TABLET PO SCH (07:45)
[2019-06-05] MEDS: Doxycycline 100 MG CAPSULE PO SCH (07:45)
[2019-06-05] MEDS ORDERED: Furosemide 40 MG/4 ML VIAL IVP ONE (09:13)
== END 2019-06-05 10:22 | disposition home health service (06) | DRG 602 ==
LOC: 3ANU 13:24 → EMEROOARM 13:24 → SUATTDRO 17:26 → 3ANU 18:19 → SUATTDRO 05-31 15:46
PROVIDERS: ADMIT Internal Medicine; ATTEND Student in an Organized Health Care Education/Training Program

== ENCOUNTER 2020-01-16 22:00 | Inpatient (IN) ==
[2020-01-16] MEDS ORDERED: Furosemide 40 MG/4 ML VIAL IVP ONE (22:23)
[2020-01-16 22:28] LABS: INR 1.3; Prothrombin Time 15.1 Seconds (9.4-12.1)
[2020-01-16 22:31] LABS: Activated Partial Thrombo Time 30.4 Seconds (26.0-36.0)
[2020-01-16 22:38] LABS: Basophils % 0.5 %; Platelet Count 396 K/mcL (140-400); Red Cell Distribution Width 16.6 % (11.5-14.5)
[2020-01-16 22:39] LABS: Basophils # 0.1 K/mcL (0.0-0.2); Eosinophils # 0.2 K/mcL (0.0-0.6); Eosinophils % 1.9 %; Hematocrit 44.6 % (37.5-50.1); Hemoglobin 13.3 g/dL (12.9-16.9); Immature Granulocytes % 0.6 % (0-4); Lymphocytes % 11.4 %; Mean Corpuscular HGB Conc 29.8 g/dL (31.6-35.5); Mean Corpuscular Hemoglobin 26.8 pg (28.0-33.3); Mean Corpuscular Volume 89.9 fL (83.0-100.0); Mean Platelet Volume 9.8 fL (9.4-12.4); Monocytes # 0.7 K/mcL (0.0-1.3); Monocytes % 5.8 %; Neutrophils # 9.4 K/mcL (1.6-8.9); Red Blood Count 4.96 M/mcL (4.19-5.50); Segmented Neutrophils % 79.8 %; White Blood Count 11.8 K/mcL (4.3-11.1)
[2020-01-16 22:42] LABS: Lymphocytes # 1.4 K/mcL (0.6-4.6)
[2020-01-16 22:48] LABS: BUN/Creatinine Ratio 19 (6-26); Blood Urea Nitrogen 15 mg/dL (6-20); Calcium 8.8 mg/dL (8.6-10.3); Carbon Dioxide 36 mEq/L (23-29); Chloride 94 mEq/L (98-107); Glucose 130 mg/dL (70-105); Osmolality,Calculated 285 (280-300); Sodium 136 mEq/L (136-145); eGFR For African Americans > 60 (> 60); eGFR For Non-African Americans > 60 (> 60)
[2020-01-16] MEDS ORDERED: Piperacillin/Tazobactam 3.375 GM in 0.9 % Sodium Chloride Mini Bag 100 ML IVPB ONE (22:49)
[2020-01-16 22:51] LABS: Troponin I < 0.03 ng/mL (< 0.04)
[2020-01-16 22:54] LABS: Hypochromasia Present (Not Present); Platelet Estimate Normal (Normal)
[2020-01-16] MEDS ORDERED: Vancomycin 2,000 MG/520 ML IV.SOLN IVPB ONE (23:00)
[2020-01-16] MEDS ORDERED: Morphine Sulfate 2 MG/ML SYRINGE IVP ONE (23:10)
[2020-01-17 00:55] LABS: Alanine Aminotransferase 11 Units/L (7-52); Albumin 3.5 g/dL (3.5-5.7); Alkaline Phosphatase 93 Units/L (34-104); Aspartate Amino Transferase 13 Units/L (13-39); Bilirubin,Direct 0.1 mg/dL (0.0-0.2); Bilirubin,Indirect 0.3 mg/dL (0.0-1.0); Bilirubin,Total 0.4 mg/dL (0.3-1.0); Globulin 3.6 g/dL (2.4-3.5); Total Protein 7.1 g/dL (6.4-8.9)
[2020-01-17] MEDS ORDERED: Naloxone 0.4 MG/ML INJ IVP PRN (01:05)
[2020-01-17] MEDS ORDERED: Dextrose Gel 15 GM/37.5 ML TUBE PO PRN ×2 (01:05)
[2020-01-17] MEDS ORDERED: *HR* Dextrose 50 % in Water (Vial) 50 ML VIAL IVP PRN (01:05)
[2020-01-17] MEDS ORDERED: D5% in Water 1,000 ML IVC PRN (01:05)
[2020-01-17] MEDS ORDERED: Ondansetron 4 MG/2 ML VIAL IVP PRN (01:05)
[2020-01-17] MEDS ORDERED: Ipratropium/Albuterol Neb 3 ML IH PRN (01:05)
[2020-01-17] MEDS ORDERED: Acetaminophen 325 MG TABLET PO PRN (03:05)
[2020-01-17 03:06] LABS: Bacteria,Urine Few per hpf (None-Few); Bilirubin,Urine Negative (Negative); Blood,Urine Moderate (Negative); Clarity,Urine Clear (Clear); Color,Urine Colorless (Yellow); Glucose,Urine (UA) Normal (Normal); Ketones,Urine Negative (Negative); Leukocyte Esterase,Urine Negative (Negative); Nitrite,Urine Negative (Negative); PH,Urine 5.5 pH Units (5.0-8.0); Protein,Urine Negative (Neg-Trace); RBC,Urine 50-100 per hpf (0-3); Specific Gravity,Urine 1.008 (1.010-1.025); Squamous Epithelial Cell,Urine Few per hpf (None-Few); Urobilinogen,Urine Normal (Normal); WBC,Urine 0-3 per hpf (0-3)
[2020-01-17] MEDS: Ipratropium/Albuterol Neb 3 ML IH SCH ×6 (04:07→23:33)
[2020-01-17 06:03] LABS: Hematocrit 43.1 % (37.5-50.1); Hemoglobin 12.7 g/dL (12.9-16.9); Mean Corpuscular HGB Conc 29.5 g/dL (31.6-35.5); Mean Corpuscular Hemoglobin 26.7 pg (28.0-33.3); Mean Corpuscular Volume 90.7 fL (83.0-100.0); Mean Platelet Volume 10.1 fL (9.4-12.4); Platelet Count 319 K/mcL (140-400); Red Blood Count 4.75 M/mcL (4.19-5.50); Red Cell Distribution Width 16.5 % (11.5-14.5); White Blood Count 11.6 K/mcL (4.3-11.1)
[2020-01-17 06:27] LABS: BUN/Creatinine Ratio 19 (6-26); Blood Urea Nitrogen 15 mg/dL (6-20); Calcium 8.6 mg/dL (8.6-10.3); Carbon Dioxide 35 mEq/L (23-29); Chloride 96 mEq/L (98-107); Glucose 116 mg/dL (70-105); Magnesium 1.9 mg/dL (1.6-2.6); Osmolality,Calculated 284 (280-300); Potassium 4.5 mEq/L (3.5-5.1); Sodium 136 mEq/L (136-145); eGFR For African Americans > 60 (> 60); eGFR For Non-African Americans > 60 (> 60)
[2020-01-17] MEDS: Budesonide/Formoterol 160/4.5 1 PUFF INH IH SCH ×2 (07:37→20:09)
[2020-01-17] MEDS: Insulin LISPRO 300 UNITS/3 ML VIAL SQ SCH ×3 (07:59→16:33)
[2020-01-17] MEDS: *HR* Heparin 5,000 UNIT/ML VIAL SQ SCH ×3 (07:59→20:06)
[2020-01-17] MEDS: Aspirin Enteric Coated 325 MG Tablet PO SCH (07:59)
[2020-01-17] MEDS: Furosemide 40 MG/4 ML VIAL IVP SCH ×2 (07:59→20:03)
[2020-01-17] MEDS ORDERED: methylPREDNISolone 125 MG/2 ML VIAL IVP SCH ×2 (08:00)
[2020-01-17] MEDS: Piperacillin/Tazobactam 3.375 GM in 0.9 % Sodium Chloride Mini Bag 100 ML IVPB SCH ×2 (08:00→16:34)
[2020-01-17] MEDS ORDERED: Furosemide 80 MG in 0.9 % Sodium Chloride 50 ML IV SCH (09:00)
[2020-01-17] MEDS: Vancomycin 1,500 MG/265 ML IV.SOLN IVPB SCH ×2 (13:08→23:16)
[2020-01-17] MEDS ORDERED: Perflutren Lipid Microsphere 1.3 ML in 0.9 % Sodium Chloride 8.7 ML IVP ONE (13:41)
[2020-01-17] MEDS: MethylPREDNISolone 40 MG/ML VIAL IVP SCH ×2 (16:34→23:16)
[2020-01-17] MEDS ORDERED: Insulin LISPRO 300 UNITS/3 ML VIAL SQ SCH (21:00)
[2020-01-18] MEDS: Piperacillin/Tazobactam 3.375 GM in 0.9 % Sodium Chloride Mini Bag 100 ML IVPB SCH ×3 (00:43→17:01)
[2020-01-18 02:25] LABS: BUN/Creatinine Ratio 22 (6-26); Basophils % 0.1 %; Blood Urea Nitrogen 20 mg/dL (6-20); Calcium 8.2 mg/dL (8.6-10.3); Carbon Dioxide 35 mEq/L (23-29); Chloride 95 mEq/L (98-107); Eosinophils % 0.1 %; Glucose 297 mg/dL (70-105); Hematocrit 42.2 % (37.5-50.1); Hemoglobin 12.5 g/dL (12.9-16.9); Lymphocytes # 0.4 K/mcL (0.6-4.6); Lymphocytes % 4.6 %; Mean Corpuscular HGB Conc 29.6 g/dL (31.6-35.5); Mean Corpuscular Hemoglobin 26.8 pg (28.0-33.3); Mean Corpuscular Volume 90.6 fL (83.0-100.0); Mean Platelet Volume 10.2 fL (9.4-12.4); Monocytes # 0.3 K/mcL (0.0-1.3); Monocytes % 2.9 %; Neutrophils # 8.5 K/mcL (1.6-8.9); Osmolality,Calculated 294 (280-300); Platelet Count 341 K/mcL (140-400); Potassium 5.1 mEq/L (3.5-5.1); Red Blood Count 4.66 M/mcL (4.19-5.50); Red Cell Distribution Width 16.3 % (11.5-14.5); Segmented Neutrophils % 91.3 %; Sodium 135 mEq/L (136-145); White Blood Count 9.3 K/mcL (4.3-11.1); eGFR For African Americans > 60 (> 60); eGFR For Non-African Americans > 60 (> 60)
[2020-01-18] MEDS: Ipratropium/Albuterol Neb 3 ML IH SCH ×5 (03:48→20:05)
[2020-01-18] MEDS: *HR* Heparin 5,000 UNIT/ML VIAL SQ SCH ×3 (05:28→20:33)
[2020-01-18] MEDS: Budesonide/Formoterol 160/4.5 1 PUFF INH IH SCH ×2 (07:31→20:05)
[2020-01-18] MEDS: Aspirin Enteric Coated 325 MG Tablet PO SCH (07:46)
[2020-01-18] MEDS: Furosemide 40 MG/4 ML VIAL IVP SCH ×2 (07:47→20:34)
[2020-01-18] MEDS: Insulin LISPRO 300 UNITS/3 ML VIAL SQ SCH ×2 (07:48→12:04)
[2020-01-18] MEDS: MethylPREDNISolone 40 MG/ML VIAL IVP SCH ×3 (07:49→23:37)
[2020-01-18 10:00] LABS: Estimated Average Glucose 203 mg/dl
[2020-01-18] MEDS: Vancomycin 1,500 MG/265 ML IV.SOLN IVPB SCH (11:59)
[2020-01-18] MEDS: Miconazole 2% ointment 141 APPL/141 GM TUBE TP SCH (14:21)
[2020-01-18] MEDS: Ammonium Lactate 30 APPL/225 GM BOTTLE TP SCH ×2 (14:21→20:33)
[2020-01-18] MEDS: Insulin DETEMIR 100 UNIT/ML X5UNITS SQ SCH (14:44)
[2020-01-18] MEDS ORDERED: Insulin LISPRO 300 UNITS/3 ML VIAL SQ SCH ×3 (14:56→21:00)
[2020-01-18] MEDS: Vancomycin 1,250 MG/262.5 ML IV.SOLN IVPB SCH (23:37)
[2020-01-19] MEDS: Ipratropium/Albuterol Neb 3 ML IH SCH ×7 (00:09→23:49)
[2020-01-19] MEDS: Piperacillin/Tazobactam 3.375 GM in 0.9 % Sodium Chloride Mini Bag 100 ML IVPB SCH ×4 (01:06→23:02)
[2020-01-19] MEDS ORDERED: Insulin DETEMIR 100 UNIT/ML X5UNITS SQ ONE (01:22)
[2020-01-19] MEDS ORDERED: Insulin LISPRO 300 UNITS/3 ML VIAL SQ SCH (01:30)
[2020-01-19 02:49] LABS: Basophils % 0.1 %; Eosinophils % 0.1 %; Hematocrit 42.9 % (37.5-50.1); Hemoglobin 12.6 g/dL (12.9-16.9); Immature Granulocytes % 0.6 % (0-4); Lymphocytes # 0.5 K/mcL (0.6-4.6); Lymphocytes % 3.9 %; Mean Corpuscular HGB Conc 29.4 g/dL (31.6-35.5); Mean Corpuscular Hemoglobin 26.8 pg (28.0-33.3); Mean Corpuscular Volume 91.1 fL (83.0-100.0); Mean Platelet Volume 10.3 fL (9.4-12.4); Monocytes # 0.6 K/mcL (0.0-1.3); Neutrophils # 10.8 K/mcL (1.6-8.9); Platelet Count 349 K/mcL (140-400); Red Blood Count 4.71 M/mcL (4.19-5.50); Red Cell Distribution Width 16.3 % (11.5-14.5); Segmented Neutrophils % 90.3 %
[2020-01-19 02:57] LABS: BUN/Creatinine Ratio 27 (6-26); Blood Urea Nitrogen 30 mg/dL (6-20); Calcium 8.4 mg/dL (8.6-10.3); Carbon Dioxide 36 mEq/L (23-29); Chloride 94 mEq/L (98-107); Glucose 336 mg/dL (70-105); Osmolality,Calculated 301 (280-300); Potassium 4.9 mEq/L (3.5-5.1); Sodium 136 mEq/L (136-145); eGFR For African Americans > 60 (> 60); eGFR For Non-African Americans > 60 (> 60)
[2020-01-19] MEDS: Insulin LISPRO 300 UNITS/3 ML VIAL SQ SCH ×7 (05:14→22:48)
[2020-01-19] MEDS: *HR* Heparin 5,000 UNIT/ML VIAL SQ SCH ×3 (05:15→22:51)
[2020-01-19] MEDS: Nicotine 21 MG PATCH.TD24 TD SCH (06:13)
[2020-01-19] MEDS: Budesonide/Formoterol 160/4.5 1 PUFF INH IH SCH ×2 (07:36→20:08)
[2020-01-19] MEDS: Furosemide 40 MG/4 ML VIAL IVP SCH ×2 (08:23→22:51)
[2020-01-19] MEDS: Insulin DETEMIR 100 UNIT/ML X5UNITS SQ SCH ×2 (08:24→22:51)
[2020-01-19] MEDS: Aspirin Enteric Coated 325 MG Tablet PO SCH (08:24)
[2020-01-19] MEDS: Vancomycin 1,250 MG/262.5 ML IV.SOLN IVPB SCH (12:10)
[2020-01-19] MEDS: Ammonium Lactate 30 APPL/225 GM BOTTLE TP SCH ×2 (22:38→22:50)
[2020-01-19] MEDS: Miconazole 2% ointment 141 APPL/141 GM TUBE TP SCH (22:39)
[2020-01-20] MEDS: Insulin LISPRO 300 UNITS/3 ML VIAL SQ SCH ×9 (02:02→22:42)
[2020-01-20] MEDS: Ipratropium/Albuterol Neb 3 ML IH SCH ×6 (03:30→23:29)
[2020-01-20] MEDS: *HR* Heparin 5,000 UNIT/ML VIAL SQ SCH ×3 (04:36→22:54)
[2020-01-20] MEDS: Nicotine 21 MG PATCH.TD24 TD SCH (04:39)
[2020-01-20] MEDS: Miconazole 2% ointment 141 APPL/141 GM TUBE TP SCH (06:35)
[2020-01-20] MEDS: Budesonide/Formoterol 160/4.5 1 PUFF INH IH SCH ×2 (07:35→20:26)
[2020-01-20 08:49] LABS: Basophils % 0.4 %; Eosinophils # 0.1 K/mcL (0.0-0.6); Eosinophils % 1.1 %; Hematocrit 45.1 % (37.5-50.1); Hemoglobin 13.2 g/dL (12.9-16.9); Immature Granulocytes % 0.4 % (0-4); Lymphocytes # 1.7 K/mcL (0.6-4.6); Lymphocytes % 15.5 %; Mean Corpuscular HGB Conc 29.3 g/dL (31.6-35.5); Mean Corpuscular Hemoglobin 26.7 pg (28.0-33.3); Mean Corpuscular Volume 91.3 fL (83.0-100.0); Mean Platelet Volume 9.7 fL (9.4-12.4); Monocytes # 0.6 K/mcL (0.0-1.3); Monocytes % 5.8 %; Neutrophils # 8.3 K/mcL (1.6-8.9); Platelet Count 326 K/mcL (140-400); Red Blood Count 4.94 M/mcL (4.19-5.50); Red Cell Distribution Width 16.7 % (11.5-14.5); Segmented Neutrophils % 76.8 %; White Blood Count 10.8 K/mcL (4.3-11.1)
[2020-01-20] MEDS ORDERED: MethylPREDNISolone 40 MG/ML VIAL IVP SCH (09:00)
[2020-01-20 09:08] LABS: BUN/Creatinine Ratio 33 (6-26); Blood Urea Nitrogen 30 mg/dL (6-20); Calcium 8.6 mg/dL (8.6-10.3); Carbon Dioxide 39 mEq/L (23-29); Chloride 97 mEq/L (98-107); Glucose 146 mg/dL (70-105); Osmolality,Calculated 289 (280-300); Potassium 4.3 mEq/L (3.5-5.1); Sodium 135 mEq/L (136-145); eGFR For African Americans > 60 (> 60); eGFR For Non-African Americans > 60 (> 60)
[2020-01-20] MEDS: Furosemide 40 MG/4 ML VIAL IVP SCH ×2 (09:54→22:47)
[2020-01-20] MEDS: Aspirin Enteric Coated 325 MG Tablet PO SCH (09:55)
[2020-01-20] MEDS: Insulin DETEMIR 100 UNIT/ML X5UNITS SQ SCH ×2 (09:55→22:49)
[2020-01-20] MEDS: Piperacillin/Tazobactam 3.375 GM in 0.9 % Sodium Chloride Mini Bag 100 ML IVPB SCH ×2 (09:56→18:23)
[2020-01-20] MEDS: Ammonium Lactate 30 APPL/225 GM BOTTLE TP SCH ×2 (09:57→22:46)
[2020-01-20] MEDS: *HR* Metformin 500 MG TABLET PO SCH (18:23)
[2020-01-21] MEDS: Piperacillin/Tazobactam 3.375 GM in 0.9 % Sodium Chloride Mini Bag 100 ML IVPB SCH ×3 (01:30→17:44)
[2020-01-21 02:08] LABS: Hematocrit 42.4 % (37.5-50.1); Hemoglobin 12.5 g/dL (12.9-16.9); Mean Corpuscular HGB Conc 29.5 g/dL (31.6-35.5); Mean Corpuscular Hemoglobin 26.4 pg (28.0-33.3); Mean Corpuscular Volume 89.6 fL (83.0-100.0); Mean Platelet Volume 9.7 fL (9.4-12.4); Platelet Count 312 K/mcL (140-400); Red Blood Count 4.73 M/mcL (4.19-5.50); Red Cell Distribution Width 15.9 % (11.5-14.5); White Blood Count 11.5 K/mcL (4.3-11.1)
[2020-01-21 02:26] LABS: BUN/Creatinine Ratio 37 (6-26); Blood Urea Nitrogen 36 mg/dL (6-20); Calcium 8.9 mg/dL (8.6-10.3); Carbon Dioxide 43 mEq/L (23-29); Chloride 93 mEq/L (98-107); Glucose 185 mg/dL (70-105); Osmolality,Calculated 299 (280-300); Potassium 4.7 mEq/L (3.5-5.1); Sodium 138 mEq/L (136-145); eGFR For African Americans > 60 (> 60); eGFR For Non-African Americans > 60 (> 60)
[2020-01-21] MEDS: Ipratropium/Albuterol Neb 3 ML IH SCH ×6 (03:49→23:10)
[2020-01-21] MEDS: Nicotine 21 MG PATCH.TD24 TD SCH (06:14)
[2020-01-21] MEDS: *HR* Heparin 5,000 UNIT/ML VIAL SQ SCH ×3 (06:14→21:55)
[2020-01-21] MEDS: Budesonide/Formoterol 160/4.5 1 PUFF INH IH SCH ×2 (07:28→20:12)
[2020-01-21] MEDS: *HR* Metformin 500 MG TABLET PO SCH ×2 (09:42→17:44)
[2020-01-21] MEDS: Insulin DETEMIR 100 UNIT/ML X5UNITS SQ SCH ×2 (09:42→21:51)
[2020-01-21] MEDS: predniSONE 20 MG TABLET PO SCH (09:42)
[2020-01-21] MEDS: Aspirin Enteric Coated 325 MG Tablet PO SCH (09:42)
[2020-01-21] MEDS: Insulin LISPRO 300 UNITS/3 ML VIAL SQ SCH ×7 (09:43→21:52)
[2020-01-21] MEDS: Ammonium Lactate 30 APPL/225 GM BOTTLE TP SCH ×2 (09:44→21:45)
[2020-01-21] MEDS: Furosemide 40 MG/4 ML VIAL IVP SCH ×2 (09:45→21:47)
[2020-01-21] MEDS: Miconazole 2% ointment 141 APPL/141 GM TUBE TP SCH (09:45)
[2020-01-21 10:33] LABS: ABG Base Excess 15 mEq/L (-2 to 3); ABG HCO3 47 mEq/L (21-27); ABG Oxygen Saturation 90 % (95-98); ABG PCO2 94 mmHg (35-45); ABG PH 7.31 pH Units (7.32-7.45); ABG PO2 69 mmHg (85-104); ABG TCO2 50 mEq/L (20-26)
[2020-01-22] MEDS: Piperacillin/Tazobactam 3.375 GM in 0.9 % Sodium Chloride Mini Bag 100 ML IVPB SCH ×3 (01:05→17:50)
[2020-01-22] MEDS: Ipratropium/Albuterol Neb 3 ML IH SCH ×5 (03:50→20:16)
[2020-01-22] MEDS: *HR* Heparin 5,000 UNIT/ML VIAL SQ SCH ×3 (06:34→22:01)
[2020-01-22] MEDS: Nicotine 21 MG PATCH.TD24 TD SCH (06:40)
[2020-01-22] MEDS: Budesonide/Formoterol 160/4.5 1 PUFF INH IH SCH ×2 (07:33→20:16)
[2020-01-22 08:49] LABS: Basophils % 0.3 %; Eosinophils # 0.3 K/mcL (0.0-0.6); Eosinophils % 2.8 %; Hematocrit 44.1 % (37.5-50.1); Hemoglobin 13.2 g/dL (12.9-16.9); Immature Granulocytes % 0.4 % (0-4); Mean Corpuscular HGB Conc 29.9 g/dL (31.6-35.5); Mean Corpuscular Hemoglobin 26.5 pg (28.0-33.3); Mean Corpuscular Volume 88.6 fL (83.0-100.0); Mean Platelet Volume 9.9 fL (9.4-12.4); Monocytes # 0.7 K/mcL (0.0-1.3); Monocytes % 6.2 %; Neutrophils # 8.6 K/mcL (1.6-8.9); Platelet Count 306 K/mcL (140-400); Red Blood Count 4.98 M/mcL (4.19-5.50); Red Cell Distribution Width 15.9 % (11.5-14.5); Segmented Neutrophils % 73.3 %; White Blood Count 11.7 K/mcL (4.3-11.1)
[2020-01-22 09:01] LABS: VBG HCO3 37 mEq/L (21-27); VBG PCO2 59 mmHg (41-51); VBG PH 7.41 pH Units (7.32-7.42); VBG PO2 168 mmHg (25-50)
[2020-01-22 09:15] LABS: BUN/Creatinine Ratio 38 (6-26); Blood Urea Nitrogen 34 mg/dL (8-23); Carbon Dioxide 40 mEq/L (23-29); Chloride 95 mEq/L (98-107); Glucose 124 mg/dL (70-105); Osmolality,Calculated 295 (280-300); Potassium 4.1 mEq/L (3.5-5.1); Sodium 138 mEq/L (136-145); eGFR For African Americans > 60 (> 60); eGFR For Non-African Americans > 60 (> 60)
[2020-01-22] MEDS: Aspirin Enteric Coated 325 MG Tablet PO SCH (10:41)
[2020-01-22] MEDS: *HR* Metformin 500 MG TABLET PO SCH ×2 (10:41→17:48)
[2020-01-22] MEDS: predniSONE 20 MG TABLET PO SCH (10:41)
[2020-01-22] MEDS: Furosemide 40 MG/4 ML VIAL IVP SCH ×2 (10:42→21:59)
[2020-01-22] MEDS: Insulin DETEMIR 100 UNIT/ML X5UNITS SQ SCH ×2 (10:42→22:01)
[2020-01-22] MEDS: Insulin LISPRO 300 UNITS/3 ML VIAL SQ SCH ×7 (10:43→22:05)
[2020-01-22] MEDS: Miconazole 2% ointment 141 APPL/141 GM TUBE TP SCH (10:59)
[2020-01-22] MEDS: Ammonium Lactate 30 APPL/225 GM BOTTLE TP SCH ×2 (10:59→22:00)
[2020-01-22] MEDS ORDERED: acetaZOLAMIDE 250 MG TABLET PO ONE (11:48)
[2020-01-23] MEDS: Ipratropium/Albuterol Neb 3 ML IH SCH ×3 (00:05→08:02)
[2020-01-23] MEDS: Piperacillin/Tazobactam 3.375 GM in 0.9 % Sodium Chloride Mini Bag 100 ML IVPB SCH (01:18)
[2020-01-23 04:13] LABS: Hematocrit 44.2 % (37.5-50.1); Hemoglobin 12.9 g/dL (12.9-16.9); Mean Corpuscular HGB Conc 29.2 g/dL (31.6-35.5); Mean Corpuscular Volume 88.9 fL (83.0-100.0); Mean Platelet Volume 10.3 fL (9.4-12.4); Platelet Count 299 K/mcL (140-400); Red Blood Count 4.97 M/mcL (4.19-5.50); Red Cell Distribution Width 15.8 % (11.5-14.5); White Blood Count 14.1 K/mcL (4.3-11.1)
[2020-01-23 04:15] LABS: VBG HCO3 37 mEq/L (21-27); VBG PCO2 62 mmHg (41-51); VBG PH 7.38 pH Units (7.32-7.42); VBG PO2 209 mmHg (25-50)
[2020-01-23 04:31] LABS: BUN/Creatinine Ratio 35 (6-26); Blood Urea Nitrogen 32 mg/dL (8-23); Calcium 9.1 mg/dL (8.6-10.3); Carbon Dioxide 38 mEq/L (23-29); Chloride 97 mEq/L (98-107); Glucose 117 mg/dL (70-105); Osmolality,Calculated 296 (280-300); Potassium 4.3 mEq/L (3.5-5.1); Sodium 139 mEq/L (136-145); eGFR For African Americans > 60 (> 60); eGFR For Non-African Americans > 60 (> 60)
[2020-01-23] MEDS: *HR* Heparin 5,000 UNIT/ML VIAL SQ SCH (05:41)
[2020-01-23] MEDS: Nicotine 21 MG PATCH.TD24 TD SCH (05:41)
[2020-01-23 07:43] VITALS: BP 116/69
[2020-01-23] MEDS: Budesonide/Formoterol 160/4.5 1 PUFF INH IH SCH (08:02)
== END 2020-01-23 09:25 | DRG 291 ==
LOC: EMEROOARM 22:00 → 2ANU 22:00 → SUATTDRO 01-17 01:08 → 2ANU 01-17 01:21 → SUATTDRO 01-18 14:56
PROVIDERS: ADMIT Student in an Organized Health Care Education/Training Program; ATTEND Internal Medicine

== ENCOUNTER 2020-09-21 14:34 | Inpatient (IN) ==
[2020-09-21 15:18] LABS: Hematocrit 43.3 % (37.5-50.1); Hemoglobin 13.5 g/dL (12.9-16.9); Mean Corpuscular HGB Conc 31.2 g/dL (31.6-35.5); Mean Corpuscular Hemoglobin 28.5 pg (28.0-33.3); Mean Corpuscular Volume 91.4 fL (83.0-100.0); Mean Platelet Volume 9.8 fL (9.4-12.4); Platelet Count 291 K/mcL (140-400); Red Blood Count 4.74 M/mcL (4.19-5.50); Red Cell Distribution Width 16.4 % (11.5-14.5); White Blood Count 8.5 K/mcL (4.3-11.1)
[2020-09-21 16:06] LABS: Alanine Aminotransferase 13 Units/L (7-52); Albumin/Globulin Ratio 1.2 (1.1-2.2); Alkaline Phosphatase 108 Units/L (34-104); Aspartate Amino Transferase 15 Units/L (13-39); BUN/Creatinine Ratio 21 (6-26); Bilirubin,Direct 0.1 mg/dL (0.0-0.2); Bilirubin,Indirect 0.3 mg/dL (0.0-1.0); Bilirubin,Total 0.4 mg/dL (0.3-1.0); Blood Urea Nitrogen 17 mg/dL (8-23); Calcium 9.5 mg/dL (8.6-10.3); Carbon Dioxide 35 mEq/L (23-29); Chloride 97 mEq/L (98-107); Globulin 3.4 g/dL (2.4-3.5); Glucose 74 mg/dL (70-105); Lipase 21 Units/L (11-82); Osmolality,Calculated 290 (280-300); Potassium 4.3 mEq/L (3.5-5.1); Sodium 140 mEq/L (136-145); Total Protein 7.4 g/dL (6.4-8.9); eGFR For African Americans > 60 (> 60); eGFR For Non-African Americans > 60 (> 60)
[2020-09-21] MEDS ORDERED: Perflutren Lipid Microsphere 1.3 ML in 0.9 % Sodium Chloride 8.7 ML IVP PRN (17:46)
[2020-09-21] MEDS ORDERED: Aspirin Enteric Coated 325 MG Tablet PO STA (17:48)
[2020-09-21] MEDS ORDERED: Nystatin POWDER 30 GM BOTTLE TP PRN (17:50)
[2020-09-21] MEDS ORDERED: Acetaminophen 325 MG TABLET PO PRN (17:52)
[2020-09-21] MEDS ORDERED: Ondansetron 4 MG/2 ML VIAL IVP PRN (17:52)
[2020-09-21] MEDS ORDERED: Naloxone 0.4 MG/ML INJ IVP PRN (17:52)
[2020-09-21] MEDS ORDERED: Ammonium Lactate 30 APPL/225 GM BOTTLE TP PRN (17:54)
[2020-09-21 18:04] LABS: Cholesterol 114 mg/dL (< 200); HDL Cholesterol 23 mg/dL (40-59); LDL Cholesterol,Calculated 58 mg/dL (< 100); Triglycerides 167 mg/dL (< 150)
[2020-09-21] MEDS ORDERED: Dextrose Gel 15 GM/37.5 ML TUBE PO PRN ×2 (18:05)
[2020-09-21] MEDS ORDERED: *HR* Dextrose 50 % in Water (Vial) 50 ML VIAL IVP PRN (18:05)
[2020-09-21] MEDS ORDERED: D5% in Water 1,000 ML IVC PRN (18:05)
[2020-09-21 18:14] LABS: Magnesium 1.8 mg/dL (1.6-2.6)
[2020-09-21 18:18] LABS: Thyroid Stimulating Hormone 3.411 mcIU/mL (0.340-5.600)
[2020-09-21 18:55] LABS: Estimated Average Glucose 134 mg/dl; Hemoglobin A1C 6.3 %
[2020-09-21] MEDS ORDERED: Nitroglycerin 0.4 MG TAB.SUBL SL PRN (20:00)
[2020-09-21] MEDS: Insulin LISPRO 300 UNITS/3 ML VIAL SUBQ SCH (22:04)
[2020-09-21] MEDS: Famotidine 20 MG TABLET PO SCH (22:07)
[2020-09-22 00:57] LABS: Bilirubin,Urine Negative (Negative); Blood,Urine Negative (Negative); Clarity,Urine Clear (Clear); Color,Urine Light-Yellow (Yellow); Glucose,Urine (UA) Normal (Normal); Ketones,Urine Negative (Negative); Leukocyte Esterase,Urine Negative (Negative); Nitrite,Urine Negative (Negative); Protein,Urine Trace mg/dL (Neg-Trace); Specific Gravity,Urine 1.014 (1.010-1.025); Urobilinogen,Urine Normal (Normal)
[2020-09-22 04:27] LABS: Hematocrit 40.3 % (37.5-50.1); Hemoglobin 12.6 g/dL (12.9-16.9); Mean Corpuscular HGB Conc 31.3 g/dL (31.6-35.5); Mean Corpuscular Volume 92.9 fL (83.0-100.0); Mean Platelet Volume 10.2 fL (9.4-12.4); Platelet Count 275 K/mcL (140-400); Red Blood Count 4.34 M/mcL (4.19-5.50); Red Cell Distribution Width 16.2 % (11.5-14.5); White Blood Count 7.8 K/mcL (4.3-11.1)
[2020-09-22 04:35] LABS: INR 1.1; Prothrombin Time 12.3 Seconds (9.4-12.1)
[2020-09-22 04:38] LABS: Activated Partial Thrombo Time 26.7 Seconds (26.0-36.0)
[2020-09-22 04:44] LABS: BUN/Creatinine Ratio 22 (6-26); Blood Urea Nitrogen 14 mg/dL (8-23); Calcium 9.4 mg/dL (8.6-10.3); Carbon Dioxide 37 mEq/L (23-29); Chloride 100 mEq/L (98-107); Glucose 111 mg/dL (70-105); Osmolality,Calculated 293 (280-300); Potassium 4.2 mEq/L (3.5-5.1); Sodium 141 mEq/L (136-145); eGFR For African Americans > 60 (> 60); eGFR For Non-African Americans > 60 (> 60)
[2020-09-22] MEDS: Insulin LISPRO 300 UNITS/3 ML VIAL SUBQ SCH ×4 (09:23→21:51)
[2020-09-22] MEDS: Aspirin Enteric Coated 81 MG Tablet PO SCH (09:26)
[2020-09-22] MEDS: Famotidine 20 MG TABLET PO SCH ×2 (09:27→22:00)
[2020-09-22] MEDS: Nicotine 7 MG PATCH.TD24 TD SCH (10:21)
[2020-09-22] MEDS ORDERED: Ipratropium/Albuterol Neb 3 ML IH PRN (12:36)
[2020-09-22] MEDS: Furosemide 40 MG TABLET PO SCH ×2 (14:40→22:00)
[2020-09-23] MEDS ORDERED: MethylPREDNISolone 40 MG/ML VIAL IVP ONE (01:20)
[2020-09-23] MEDS: *HR* HYDROcodone/Acet 5/325 mg TABLET PO PRN (01:41)
[2020-09-23 05:05] LABS: Hematocrit 41.8 % (37.5-50.1); Mean Corpuscular HGB Conc 31.1 g/dL (31.6-35.5); Mean Corpuscular Hemoglobin 28.8 pg (28.0-33.3); Mean Corpuscular Volume 92.7 fL (83.0-100.0); Platelet Count 279 K/mcL (140-400); Red Blood Count 4.51 M/mcL (4.19-5.50); Red Cell Distribution Width 15.9 % (11.5-14.5); White Blood Count 10.4 K/mcL (4.3-11.1)
[2020-09-23 05:21] LABS: BUN/Creatinine Ratio 17 (6-26); Blood Urea Nitrogen 12 mg/dL (8-23); Calcium 9.3 mg/dL (8.6-10.3); Carbon Dioxide 33 mEq/L (23-29); Chloride 99 mEq/L (98-107); Glucose 147 mg/dL (70-105); Osmolality,Calculated 286 (280-300); Potassium 4.4 mEq/L (3.5-5.1); Sodium 137 mEq/L (136-145); eGFR For African Americans > 60 (> 60); eGFR For Non-African Americans > 60 (> 60)
[2020-09-23] MEDS: Insulin LISPRO 300 UNITS/3 ML VIAL SUBQ SCH ×4 (07:30→20:27)
[2020-09-23] MEDS: lisinopriL 20 MG TABLET PO SCH (10:42)
[2020-09-23] MEDS: Furosemide 40 MG TABLET PO SCH (10:42)
[2020-09-23] MEDS: Aspirin Enteric Coated 81 MG Tablet PO SCH (10:42)
[2020-09-23] MEDS: Famotidine 20 MG TABLET PO SCH ×2 (10:42→20:26)
[2020-09-23] MEDS: Nicotine 7 MG PATCH.TD24 TD SCH (10:42)
[2020-09-23] MEDS: Furosemide 40 MG/4 ML VIAL IVP SCH (20:27)
[2020-09-24 07:16] LABS: Hematocrit 40.6 % (37.5-50.1); Hemoglobin 13.1 g/dL (12.9-16.9); Mean Corpuscular HGB Conc 32.3 g/dL (31.6-35.5); Mean Corpuscular Hemoglobin 28.6 pg (28.0-33.3); Mean Corpuscular Volume 88.6 fL (83.0-100.0); Mean Platelet Volume 9.5 fL (9.4-12.4); Platelet Count 277 K/mcL (140-400); Red Blood Count 4.58 M/mcL (4.19-5.50); Red Cell Distribution Width 15.9 % (11.5-14.5); White Blood Count 8.3 K/mcL (4.3-11.1)
[2020-09-24 07:25] LABS: BUN/Creatinine Ratio 23 (6-26); Blood Urea Nitrogen 19 mg/dL (8-23); Carbon Dioxide 33 mEq/L (23-29); Chloride 101 mEq/L (98-107); Glucose 125 mg/dL (70-105); Osmolality,Calculated 294 (280-300); Potassium 3.9 mEq/L (3.5-5.1); Sodium 140 mEq/L (136-145); eGFR For African Americans > 60 (> 60); eGFR For Non-African Americans > 60 (> 60)
[2020-09-24] MEDS: Insulin LISPRO 300 UNITS/3 ML VIAL SUBQ SCH ×4 (08:54→19:53)
[2020-09-24] MEDS: Famotidine 20 MG TABLET PO SCH ×2 (09:02→19:52)
[2020-09-24] MEDS: Nicotine 7 MG PATCH.TD24 TD SCH (09:02)
[2020-09-24] MEDS: Furosemide 40 MG/4 ML VIAL IVP SCH ×2 (09:02→19:52)
[2020-09-24] MEDS: lisinopriL 20 MG TABLET PO SCH (09:02)
[2020-09-24] MEDS: Aspirin Enteric Coated 81 MG Tablet PO SCH (09:02)
[2020-09-25] MEDS: *HR* HYDROcodone/Acet 5/325 mg TABLET PO PRN ×2 (01:48→13:52)
[2020-09-25 03:15] LABS: Hematocrit 39.3 % (37.5-50.1); Hemoglobin 12.8 g/dL (12.9-16.9); Mean Corpuscular HGB Conc 32.6 g/dL (31.6-35.5); Mean Corpuscular Hemoglobin 28.8 pg (28.0-33.3); Mean Corpuscular Volume 88.3 fL (83.0-100.0); Mean Platelet Volume 9.7 fL (9.4-12.4); Platelet Count 264 K/mcL (140-400); Red Blood Count 4.45 M/mcL (4.19-5.50); Red Cell Distribution Width 15.7 % (11.5-14.5); White Blood Count 9.7 K/mcL (4.3-11.1)
[2020-09-25 03:35] LABS: BUN/Creatinine Ratio 26 (6-26); Blood Urea Nitrogen 24 mg/dL (8-23); Carbon Dioxide 30 mEq/L (23-29); Chloride 101 mEq/L (98-107); Glucose 239 mg/dL (70-105); Osmolality,Calculated 300 (280-300); Potassium 3.5 mEq/L (3.5-5.1); Sodium 139 mEq/L (136-145); eGFR For African Americans > 60 (> 60); eGFR For Non-African Americans > 60 (> 60)
[2020-09-25] MEDS: Insulin LISPRO 300 UNITS/3 ML VIAL SUBQ SCH ×4 (07:40→20:02)
[2020-09-25] MEDS: Nicotine 7 MG PATCH.TD24 TD SCH (07:46)
[2020-09-25] MEDS: Furosemide 40 MG/4 ML VIAL IVP SCH (07:47)
[2020-09-25] MEDS: Famotidine 20 MG TABLET PO SCH ×2 (07:47→19:14)
[2020-09-25] MEDS: lisinopriL 20 MG TABLET PO SCH (07:48)
[2020-09-25] MEDS: Aspirin Enteric Coated 81 MG Tablet PO SCH (07:48)
[2020-09-25] MEDS ORDERED: *HR* LORazepam 2 MG/ML VIAL IVP PRN (12:41)
[2020-09-25] MEDS ORDERED: Furosemide 40 MG TABLET PO SCH (17:00)
[2020-09-26 04:16] LABS: Hemoglobin 13.4 g/dL (12.9-16.9); Mean Corpuscular HGB Conc 31.9 g/dL (31.6-35.5); Mean Corpuscular Hemoglobin 28.7 pg (28.0-33.3); Mean Corpuscular Volume 89.9 fL (83.0-100.0); Mean Platelet Volume 9.8 fL (9.4-12.4); Platelet Count 293 K/mcL (140-400); Red Blood Count 4.67 M/mcL (4.19-5.50); Red Cell Distribution Width 15.8 % (11.5-14.5); White Blood Count 9.3 K/mcL (4.3-11.1)
[2020-09-26 04:32] LABS: BUN/Creatinine Ratio 35 (6-26); Blood Urea Nitrogen 28 mg/dL (8-23); Calcium 9.2 mg/dL (8.6-10.3); Carbon Dioxide 30 mEq/L (23-29); Chloride 101 mEq/L (98-107); Glucose 135 mg/dL (70-105); Osmolality,Calculated 298 (280-300); Potassium 3.9 mEq/L (3.5-5.1); Sodium 140 mEq/L (136-145); eGFR For African Americans > 60 (> 60); eGFR For Non-African Americans > 60 (> 60)
[2020-09-26] MEDS: Insulin LISPRO 300 UNITS/3 ML VIAL SUBQ SCH ×2 (07:59→12:31)
[2020-09-26] MEDS: Nicotine 7 MG PATCH.TD24 TD SCH (08:02)
[2020-09-26] MEDS: Famotidine 20 MG TABLET PO SCH (08:03)
[2020-09-26] MEDS: lisinopriL 20 MG TABLET PO SCH (08:03)
[2020-09-26] MEDS: Aspirin Enteric Coated 81 MG Tablet PO SCH (08:03)
[2020-09-26 14:54] VITALS: BP 107/63
== END 2020-09-26 17:59 | disposition home health service (06) | DRG 555 ==
LOC: 3BNU 14:34 → EMEROOARM 14:34 → 3BNU 18:26 → SUATTDRO 09-23 11:35
PROVIDERS: ADMIT Internal Medicine; ATTEND Nurse Practitioner

== ENCOUNTER 2021-11-20 10:37 | Inpatient (IN) ==
[2021-11-20] MEDS ORDERED: Ipratropium/Albuterol Neb 3 ML IH ONE (10:52)
[2021-11-20] MEDS ORDERED: Furosemide 40 MG/4 ML VIAL IVP ONE (10:52)
[2021-11-20] MEDS ORDERED: methylPREDNISolone 125 MG/2 ML VIAL IVP ONE (10:52)
[2021-11-20 11:13] LABS: ABG Base Excess 16 mEq/L (-2 to 3); ABG HCO3 48 mEq/L (21-27); ABG Oxygen Saturation 95 % (95-98); ABG PCO2 102 mmHg (35-45); ABG PH 7.28 pH Units (7.32-7.45); ABG PO2 90 mmHg (85-104); ABG TCO2 > 50 mEq/L (20-26); Blood Gas Pressure Support 12 cm H2O
[2021-11-20] MEDS ORDERED: Azithromycin 250 MG TABLET PO ONE (11:27)
[2021-11-20] MEDS ORDERED: cefTRIAXone 1,000 MG in 0.9 % Sodium Chloride Mini Bag 100 ML IVPB ONE (11:27)
[2021-11-20 11:30] LABS: Basophils # 0.1 K/mcL (0.0-0.2); Basophils % 0.5 %; Eosinophils # 0.3 K/mcL (0.0-0.6); Eosinophils % 2.9 %; Hemoglobin 12.6 g/dL (12.9-16.9); Immature Granulocytes % 0.4 % (0-4); Lymphocytes # 1.4 K/mcL (0.6-4.6); Lymphocytes % 13.6 %; Mean Corpuscular HGB Conc 29.3 g/dL (31.6-35.5); Mean Corpuscular Hemoglobin 28.4 pg (28.0-33.3); Mean Corpuscular Volume 97.1 fL (83.0-100.0); Mean Platelet Volume 10.1 fL (9.4-12.4); Monocytes # 0.7 K/mcL (0.0-1.3); Monocytes % 6.4 %; Neutrophils # 8.1 K/mcL (1.6-8.9); Platelet Count 276 K/mcL (140-400); Red Blood Count 4.43 M/mcL (4.19-5.50); Red Cell Distribution Width 15.1 % (11.5-14.5); Segmented Neutrophils % 76.2 %; White Blood Count 10.6 K/mcL (4.3-11.1)
[2021-11-20 11:46] LABS: Alanine Aminotransferase 13 Units/L (7-52); Albumin 3.9 g/dL (3.5-5.7); Albumin/Globulin Ratio 1.2 (1.1-2.2); Alkaline Phosphatase 88 Units/L (34-104); Aspartate Amino Transferase 12 Units/L (13-39); BUN/Creatinine Ratio 17 (6-26); Bilirubin,Direct 0.1 mg/dL (0.0-0.2); Bilirubin,Indirect 0.2 mg/dL (0.0-1.0); Bilirubin,Total 0.3 mg/dL (0.3-1.0); Blood Urea Nitrogen 13 mg/dL (8-23); Carbon Dioxide 44 mEq/L (23-29); Chloride 96 mEq/L (98-107); Creatine Kinase 25 Units/L (30-223); Globulin 3.2 g/dL (2.4-3.5); Glucose 109 mg/dL (70-105); Osmolality,Calculated 295 (280-300); Potassium 4.4 mEq/L (3.5-5.1); Sodium 142 mEq/L (136-145); Total Protein 7.1 g/dL (6.4-8.9); Troponin I < 0.03 ng/mL (< 0.04); eGFR For African Americans > 60 (> 60); eGFR For Non-African Americans > 60 (> 60)
[2021-11-20] MEDS ORDERED: Naloxone 0.4 MG/ML INJ IVP PRN (12:26)
[2021-11-20 12:48] LABS: ABG Base Excess 17 mEq/L (-2 to 3); ABG HCO3 49 mEq/L (21-27); ABG Oxygen Saturation 93 % (95-98); ABG PCO2 100 mmHg (35-45); ABG PO2 80 mmHg (85-104); ABG TCO2 > 50 mEq/L (20-26); Blood Gas Pressure Support 14 cm H2O
[2021-11-20 12:59] LABS: Influenza A PCR Negative (Negative); Influenza B PCR Negative (Negative); Resp. Syncytial Virus PCR Negative (Negative)
[2021-11-20 13:00] LABS: SARS-CoV-2 by PCR (In House) Negative (Negative)
[2021-11-20] MEDS: Ipratropium/Albuterol Neb 3 ML IH SCH ×2 (16:19→20:30)
[2021-11-20] MEDS ORDERED: *HR* Dextrose 50 % in Water (Syg) 50 ML SYRINGE IVP PRN (18:00)
[2021-11-20] MEDS ORDERED: D5% in Water 1,000 ML IVC PRN (18:00)
[2021-11-20] MEDS ORDERED: Dextrose 4 GM Chewable Tablets PO PRN ×2 (18:00)
[2021-11-20] MEDS: Furosemide 40 MG/4 ML VIAL IVP SCH (18:06)
[2021-11-20] MEDS: methylPREDNISolone 125 MG/2 ML VIAL IVP SCH ×2 (18:06→23:09)
[2021-11-20] MEDS: Insulin LISPRO 300 UNITS/3 ML VIAL SUBQ SCH (18:24)
[2021-11-20 20:40] LABS: ABG Base Excess 14 mEq/L (-2 to 3); ABG HCO3 45 mEq/L (21-27); ABG Oxygen Saturation 95 % (95-98); ABG PCO2 90 mmHg (35-45); ABG PH 7.31 pH Units (7.32-7.45); ABG PO2 87 mmHg (85-104); ABG TCO2 47 mEq/L (20-26); Blood Gas Modality BiLevel; Blood Gas Pressure Support 8 cm H2O
[2021-11-20] MEDS: *HR* HYDROcodone/Acet 5/325 mg TABLET PO PRN (21:58)
[2021-11-20] MEDS ORDERED: Chloraseptic Spray 177 ML BOTTLE MM PRN (22:32)
[2021-11-20] MEDS: hydrOXYzine pamoate 25 MG CAPSULE PO PRN (23:10)
[2021-11-21 03:25] LABS: Basophils % 0.1 %; Hematocrit 38.5 % (37.5-50.1); Hemoglobin 11.9 g/dL (12.9-16.9); Immature Granulocytes % 0.5 % (0-4); Lymphocytes # 0.5 K/mcL (0.6-4.6); Lymphocytes % 6.5 %; Mean Corpuscular HGB Conc 30.9 g/dL (31.6-35.5); Mean Corpuscular Hemoglobin 28.6 pg (28.0-33.3); Mean Corpuscular Volume 92.5 fL (83.0-100.0); Mean Platelet Volume 10.6 fL (9.4-12.4); Monocytes # 0.1 K/mcL (0.0-1.3); Monocytes % 1.4 %; Neutrophils # 7.4 K/mcL (1.6-8.9); Platelet Count 250 K/mcL (140-400); Red Blood Count 4.16 M/mcL (4.19-5.50); Red Cell Distribution Width 14.3 % (11.5-14.5); Segmented Neutrophils % 91.5 %
[2021-11-21 03:43] LABS: BUN/Creatinine Ratio 24 (6-26); Blood Urea Nitrogen 19 mg/dL (8-23); Carbon Dioxide 40 mEq/L (23-29); Chloride 93 mEq/L (98-107); Glucose 247 mg/dL (70-105); Osmolality,Calculated 297 (280-300); Potassium 4.3 mEq/L (3.5-5.1); Sodium 138 mEq/L (136-145); eGFR For African Americans > 60 (> 60); eGFR For Non-African Americans > 60 (> 60)
[2021-11-21] MEDS: Ipratropium/Albuterol Neb 3 ML IH SCH ×4 (03:52→21:28)
[2021-11-21] MEDS: Insulin LISPRO 300 UNITS/3 ML VIAL SUBQ SCH ×5 (05:44→20:18)
[2021-11-21] MEDS: *HR* Enoxaparin 40 MG/0.4 ML SYRINGE SQ SCH (05:45)
[2021-11-21] MEDS: *HR* HYDROcodone/Acet 5/325 mg TABLET PO PRN ×2 (05:49→20:18)
[2021-11-21] MEDS: Aspirin Enteric Coated 81 MG Tablet PO SCH (09:03)
[2021-11-21] MEDS: methylPREDNISolone 125 MG/2 ML VIAL IVP SCH (09:04)
[2021-11-21] MEDS: Furosemide 40 MG/4 ML VIAL IVP SCH ×2 (09:04→18:02)
[2021-11-21] MEDS ORDERED: *HR* Dextrose 50 % in Water (Syg) 50 ML SYRINGE IVP PRN (10:19)
[2021-11-21] MEDS ORDERED: D5% in Water 1,000 ML IVC PRN (10:19)
[2021-11-21] MEDS ORDERED: Dextrose 4 GM Chewable Tablets PO PRN ×2 (10:19)
[2021-11-21] MEDS ORDERED: *HR* HYDROcodone/Acet 7.5/325 mg TABLET PO PRN (13:33)
[2021-11-21] MEDS: cefTRIAXone 1,000 MG in 0.9 % Sodium Chloride 10 ML IVP SCH (14:15)
[2021-11-21] MEDS: Azithromycin 500 MG in 0.9 % Sodium Chloride 250 ML IVPB SCH (14:15)
[2021-11-21] MEDS: MethylPREDNISolone 40 MG/ML VIAL IVP SCH (20:18)
[2021-11-21] MEDS: Sennosides 8.6 MG TABLET PO SCH (20:19)
[2021-11-21] MEDS ORDERED: Nicotine 2 MG GUM BC PRN (20:35)
[2021-11-21] MEDS: Nicotine 14 MG PATCH.TD24 TD SCH (20:51)
[2021-11-22] MEDS: hydrOXYzine pamoate 25 MG CAPSULE PO PRN ×2 (02:00→21:40)
[2021-11-22] MEDS: Ipratropium/Albuterol Neb 3 ML IH SCH ×4 (04:40→21:22)
[2021-11-22 05:20] LABS: VBG HCO3 35 mEq/L (21-27); VBG PCO2 56 mmHg (41-51); VBG PO2 134 mmHg (25-50)
[2021-11-22 05:43] LABS: Hematocrit 36.6 % (37.5-50.1); Hemoglobin 11.5 g/dL (12.9-16.9); Mean Corpuscular HGB Conc 31.4 g/dL (31.6-35.5); Mean Corpuscular Hemoglobin 28.9 pg (28.0-33.3); Mean Platelet Volume 10.5 fL (9.4-12.4); Platelet Count 271 K/mcL (140-400); Red Blood Count 3.98 M/mcL (4.19-5.50); Red Cell Distribution Width 14.6 % (11.5-14.5); White Blood Count 11.7 K/mcL (4.3-11.1)
[2021-11-22] MEDS: *HR* Enoxaparin 40 MG/0.4 ML SYRINGE SQ SCH (05:48)
[2021-11-22 05:58] LABS: BUN/Creatinine Ratio 28 (6-26); Blood Urea Nitrogen 22 mg/dL (8-23); Carbon Dioxide 40 mEq/L (23-29); Chloride 97 mEq/L (98-107); Glucose 112 mg/dL (70-105); Osmolality,Calculated 294 (280-300); Potassium 4.4 mEq/L (3.5-5.1); Sodium 140 mEq/L (136-145); eGFR For African Americans > 60 (> 60); eGFR For Non-African Americans > 60 (> 60)
[2021-11-22] MEDS: Insulin LISPRO 300 UNITS/3 ML VIAL SUBQ SCH ×4 (07:47→21:45)
[2021-11-22] MEDS: Sennosides 8.6 MG TABLET PO SCH ×2 (09:09→21:40)
[2021-11-22] MEDS: lisinopriL 20 MG TABLET PO SCH (09:09)
[2021-11-22] MEDS: Aspirin Enteric Coated 81 MG Tablet PO SCH (09:09)
[2021-11-22] MEDS: MethylPREDNISolone 40 MG/ML VIAL IVP SCH ×2 (09:09→21:32)
[2021-11-22] MEDS: Furosemide 40 MG/4 ML VIAL IVP SCH ×2 (09:10→17:27)
[2021-11-22] MEDS: cefTRIAXone 1,000 MG in 0.9 % Sodium Chloride 10 ML IVP SCH (09:17)
[2021-11-22] MEDS: Nicotine 14 MG PATCH.TD24 TD SCH (09:18)
[2021-11-22] MEDS: Azithromycin 500 MG in 0.9 % Sodium Chloride 250 ML IVPB SCH (13:35)
[2021-11-22] MEDS: *HR* HYDROcodone/Acet 5/325 mg TABLET PO PRN ×2 (13:36→21:39)
[2021-11-22] MEDS: Clotrimazole 1% CRM 15 GM TUBE TP SCH (22:50)
[2021-11-23] MEDS: Ipratropium/Albuterol Neb 3 ML IH SCH ×4 (04:08→20:24)
[2021-11-23] MEDS: *HR* Enoxaparin 40 MG/0.4 ML SYRINGE SQ SCH (05:25)
[2021-11-23] MEDS: Insulin LISPRO 300 UNITS/3 ML VIAL SUBQ SCH ×4 (07:54→23:13)
[2021-11-23] MEDS: *HR* HYDROcodone/Acet 5/325 mg TABLET PO PRN ×2 (09:35→16:50)
[2021-11-23] MEDS: lisinopriL 20 MG TABLET PO SCH (09:36)
[2021-11-23] MEDS: Aspirin Enteric Coated 81 MG Tablet PO SCH (09:36)
[2021-11-23] MEDS: Sennosides 8.6 MG TABLET PO SCH ×2 (09:36→20:29)
[2021-11-23] MEDS: Clotrimazole 1% CRM 15 GM TUBE TP SCH ×2 (09:36→20:36)
[2021-11-23] MEDS: cefTRIAXone 1,000 MG in 0.9 % Sodium Chloride 10 ML IVP SCH (09:37)
[2021-11-23] MEDS: Furosemide 40 MG/4 ML VIAL IVP SCH ×2 (09:37→16:59)
[2021-11-23] MEDS: MethylPREDNISolone 40 MG/ML VIAL IVP SCH ×2 (09:37→20:30)
[2021-11-23] MEDS: Nicotine 14 MG PATCH.TD24 TD SCH (09:38)
[2021-11-23] MEDS ORDERED: Simethicone 80 MG TAB.CHEW PO PRN (12:38)
[2021-11-23] MEDS: Azithromycin 500 MG in 0.9 % Sodium Chloride 250 ML IVPB SCH (14:28)
[2021-11-24] MEDS: Ipratropium/Albuterol Neb 3 ML IH SCH ×4 (03:43→20:18)
[2021-11-24 03:53] LABS: Hematocrit 38.4 % (37.5-50.1); Hemoglobin 12.1 g/dL (12.9-16.9); Mean Corpuscular HGB Conc 31.5 g/dL (31.6-35.5); Mean Corpuscular Hemoglobin 28.8 pg (28.0-33.3); Mean Corpuscular Volume 91.4 fL (83.0-100.0); Mean Platelet Volume 10.6 fL (9.4-12.4); Platelet Count 265 K/mcL (140-400); Red Cell Distribution Width 14.4 % (11.5-14.5); White Blood Count 12.2 K/mcL (4.3-11.1)
[2021-11-24 04:06] LABS: BUN/Creatinine Ratio 37 (6-26); Blood Urea Nitrogen 32 mg/dL (8-23); Calcium 8.5 mg/dL (8.6-10.3); Carbon Dioxide 35 mEq/L (23-29); Chloride 96 mEq/L (98-107); Glucose 272 mg/dL (70-105); Osmolality,Calculated 297 (280-300); Potassium 4.6 mEq/L (3.5-5.1); Sodium 135 mEq/L (136-145); eGFR For African Americans > 60 (> 60); eGFR For Non-African Americans > 60 (> 60)
[2021-11-24] MEDS: *HR* HYDROcodone/Acet 7.5/325 mg TABLET PO PRN (05:38)
[2021-11-24] MEDS: *HR* Enoxaparin 40 MG/0.4 ML SYRINGE SQ SCH (05:38)
[2021-11-24] MEDS: Nicotine 14 MG PATCH.TD24 TD SCH (09:17)
[2021-11-24] MEDS: Insulin LISPRO 300 UNITS/3 ML VIAL SUBQ SCH ×4 (09:17→21:11)
[2021-11-24] MEDS: MethylPREDNISolone 40 MG/ML VIAL IVP SCH (09:18)
[2021-11-24] MEDS: cefTRIAXone 1,000 MG in 0.9 % Sodium Chloride 10 ML IVP SCH (09:18)
[2021-11-24] MEDS: polyethylene glycoL 3350 17 GM POWD.PACK PO SCH (09:18)
[2021-11-24] MEDS: lisinopriL 20 MG TABLET PO SCH (09:19)
[2021-11-24] MEDS: Furosemide 40 MG/4 ML VIAL IVP SCH ×2 (09:19→15:52)
[2021-11-24] MEDS: Aspirin Enteric Coated 81 MG Tablet PO SCH (09:19)
[2021-11-24] MEDS: Sennosides 8.6 MG TABLET PO SCH ×2 (09:19→21:04)
[2021-11-24] MEDS: Clotrimazole 1% CRM 15 GM TUBE TP SCH ×2 (09:20→21:04)
[2021-11-24] MEDS: Azithromycin 500 MG in 0.9 % Sodium Chloride 250 ML IVPB SCH (15:52)
[2021-11-24] MEDS: hydrOXYzine pamoate 25 MG CAPSULE PO PRN (21:03)
[2021-11-24] MEDS: *HR* HYDROcodone/Acet 5/325 mg TABLET PO PRN (21:03)
[2021-11-25] MEDS: Ipratropium/Albuterol Neb 3 ML IH SCH ×4 (04:06→23:14)
[2021-11-25] MEDS: *HR* Enoxaparin 40 MG/0.4 ML SYRINGE SQ SCH (05:37)
[2021-11-25] MEDS: Insulin LISPRO 300 UNITS/3 ML VIAL SUBQ SCH ×3 (07:59→20:25)
[2021-11-25] MEDS: polyethylene glycoL 3350 17 GM POWD.PACK PO SCH (08:00)
[2021-11-25] MEDS: predniSONE 20 MG TABLET PO SCH (08:02)
[2021-11-25] MEDS: lisinopriL 20 MG TABLET PO SCH (08:02)
[2021-11-25] MEDS: Sennosides 8.6 MG TABLET PO SCH ×2 (08:02→20:24)
[2021-11-25] MEDS: Aspirin Enteric Coated 81 MG Tablet PO SCH (08:02)
[2021-11-25] MEDS: Furosemide 40 MG/4 ML VIAL IVP SCH (08:05)
[2021-11-25] MEDS: Nicotine 14 MG PATCH.TD24 TD SCH (08:11)
[2021-11-25] MEDS: cefTRIAXone 1,000 MG in 0.9 % Sodium Chloride 10 ML IVP SCH (08:11)
[2021-11-25] MEDS: Clotrimazole 1% CRM 15 GM TUBE TP SCH ×2 (08:13→20:25)
[2021-11-25] MEDS: Azithromycin 500 MG in 0.9 % Sodium Chloride 250 ML IVPB SCH (13:13)
[2021-11-25] MEDS: hydrOXYzine pamoate 25 MG CAPSULE PO PRN (20:24)
[2021-11-25] MEDS: *HR* HYDROcodone/Acet 5/325 mg TABLET PO PRN (20:24)
[2021-11-26] MEDS: Ipratropium/Albuterol Neb 3 ML IH SCH ×4 (03:12→22:06)
[2021-11-26] MEDS: *HR* Enoxaparin 40 MG/0.4 ML SYRINGE SQ SCH (05:06)
[2021-11-26] MEDS: *HR* HYDROcodone/Acet 5/325 mg TABLET PO PRN (05:11)
[2021-11-26] MEDS: Insulin LISPRO 300 UNITS/3 ML VIAL SUBQ SCH ×4 (08:33→20:04)
[2021-11-26] MEDS: Furosemide 40 MG/4 ML VIAL IVP SCH ×2 (08:34→17:47)
[2021-11-26] MEDS: polyethylene glycoL 3350 17 GM POWD.PACK PO SCH (08:36)
[2021-11-26] MEDS: Sennosides 8.6 MG TABLET PO SCH ×2 (08:38→20:01)
[2021-11-26] MEDS: Aspirin Enteric Coated 81 MG Tablet PO SCH (08:38)
[2021-11-26] MEDS: predniSONE 20 MG TABLET PO SCH (08:38)
[2021-11-26] MEDS: Nicotine 14 MG PATCH.TD24 TD SCH (08:39)
[2021-11-26] MEDS: lisinopriL 20 MG TABLET PO SCH (08:39)
[2021-11-26] MEDS: cefTRIAXone 1,000 MG in 0.9 % Sodium Chloride 10 ML IVP SCH (08:43)
[2021-11-26] MEDS: Clotrimazole 1% CRM 15 GM TUBE TP SCH ×2 (08:44→20:07)
[2021-11-27] MEDS: Ipratropium/Albuterol Neb 3 ML IH SCH ×4 (04:28→20:33)
[2021-11-27] MEDS: *HR* HYDROcodone/Acet 7.5/325 mg TABLET PO PRN ×2 (05:38→15:33)
[2021-11-27] MEDS: *HR* Enoxaparin 40 MG/0.4 ML SYRINGE SQ SCH (05:40)
[2021-11-27 06:20] LABS: BUN/Creatinine Ratio 34 (6-26); Blood Urea Nitrogen 29 mg/dL (8-23); Calcium 8.2 mg/dL (8.6-10.3); Carbon Dioxide 33 mEq/L (23-29); Chloride 101 mEq/L (98-107); Glucose 135 mg/dL (70-105); Osmolality,Calculated 294 (280-300); Sodium 138 mEq/L (136-145); eGFR For African Americans > 60 (> 60); eGFR For Non-African Americans > 60 (> 60)
[2021-11-27] MEDS: Insulin LISPRO 300 UNITS/3 ML VIAL SUBQ SCH ×4 (08:00→20:55)
[2021-11-27] MEDS: Nicotine 14 MG PATCH.TD24 TD SCH (08:05)
[2021-11-27] MEDS: polyethylene glycoL 3350 17 GM POWD.PACK PO SCH (08:05)
[2021-11-27] MEDS: Furosemide 40 MG/4 ML VIAL IVP SCH ×2 (08:05→15:33)
[2021-11-27] MEDS: Aspirin Enteric Coated 81 MG Tablet PO SCH (08:05)
[2021-11-27] MEDS: lisinopriL 20 MG TABLET PO SCH (08:06)
[2021-11-27] MEDS: predniSONE 20 MG TABLET PO SCH (08:06)
[2021-11-27] MEDS: Clotrimazole 1% CRM 15 GM TUBE TP SCH ×2 (08:06→20:59)
[2021-11-27] MEDS: Sennosides 8.6 MG TABLET PO SCH ×2 (08:06→20:54)
[2021-11-27] MEDS ORDERED: *HR* HYDROcodone/Acet 5/325 mg TABLET PO PRN (13:40)
[2021-11-28] MEDS: *HR* HYDROcodone/Acet 7.5/325 mg TABLET PO PRN ×2 (00:33→10:01)
[2021-11-28] MEDS: Ipratropium/Albuterol Neb 3 ML IH SCH ×2 (04:03→08:10)
[2021-11-28] MEDS: *HR* Enoxaparin 40 MG/0.4 ML SYRINGE SQ SCH (06:25)
[2021-11-28] MEDS ORDERED: predniSONE 20 MG TABLET PO SCH (09:00)
[2021-11-28] MEDS: Sennosides 8.6 MG TABLET PO SCH (09:15)
[2021-11-28] MEDS: Insulin LISPRO 300 UNITS/3 ML VIAL SUBQ SCH ×2 (09:36→12:13)
[2021-11-28] MEDS: lisinopriL 20 MG TABLET PO SCH (09:53)
[2021-11-28] MEDS: Aspirin Enteric Coated 81 MG Tablet PO SCH (09:54)
[2021-11-28] MEDS: Nicotine 14 MG PATCH.TD24 TD SCH (09:54)
[2021-11-28] MEDS: polyethylene glycoL 3350 17 GM POWD.PACK PO SCH (09:58)
[2021-11-28] MEDS: Furosemide 40 MG/4 ML VIAL IVP SCH (10:01)
[2021-11-28 11:55] VITALS: BP 140/75; PULSE 79; TEMP 97.1; O2SAT 96
[2021-11-28] MEDS: Clotrimazole 1% CRM 15 GM TUBE TP SCH (12:13)
== END 2021-11-28 14:08 | DRG 291 ==
LOC: EMEROOARM 10:37 → 2NENU 10:37 → SUATTDRO 19:14
PROVIDERS: ADMIT Internal Medicine; ATTEND Family Medicine

== ENCOUNTER 2022-03-29 15:45 | Inpatient (IN) ==
[2022-03-29 18:05] LABS: Basophils % 0.3 %; Eosinophils # 0.1 K/mcL (0.0-0.6); Eosinophils % 0.9 %; Hematocrit 39.8 % (37.5-50.1); Hemoglobin 11.8 g/dL (12.9-16.9); Immature Granulocytes % 0.5 % (0-4); Lymphocytes # 0.7 K/mcL (0.6-4.6); Lymphocytes % 6.8 %; Mean Corpuscular HGB Conc 29.6 g/dL (31.6-35.5); Mean Corpuscular Hemoglobin 27.5 pg (28.0-33.3); Mean Corpuscular Volume 92.8 fL (83.0-100.0); Mean Platelet Volume 10.7 fL (9.4-12.4); Monocytes # 0.6 K/mcL (0.0-1.3); Monocytes % 5.5 %; Neutrophils # 8.9 K/mcL (1.6-8.9); Platelet Count 255 K/mcL (140-400); Red Blood Count 4.29 M/mcL (4.19-5.50); Red Cell Distribution Width 18.1 % (11.5-14.5); White Blood Count 10.4 K/mcL (4.3-11.1)
[2022-03-29 18:12] LABS: INR 1.2; Prothrombin Time 12.9 Seconds (9.4-12.1)
[2022-03-29 18:14] LABS: Activated Partial Thrombo Time 35.1 Seconds (26.0-36.0)
[2022-03-29] MEDS ORDERED: Morphine Sulfate 2 MG/ML SYRINGE IVP ONE ×2 (18:28→21:15)
[2022-03-29 18:49] LABS: Bilirubin,Urine Negative (Negative); Blood,Urine Negative (Negative); Clarity,Urine Clear (Clear); Color,Urine Light-Yellow (Yellow); Glucose,Urine (UA) Normal (Normal); Ketones,Urine Negative (Negative); Leukocyte Esterase,Urine Negative (Negative); Nitrite,Urine Negative (Negative); Protein,Urine Trace mg/dL (Neg-Trace); Specific Gravity,Urine 1.017 (1.010-1.025); Urobilinogen,Urine Normal (Normal)
[2022-03-29 19:05] LABS: Amphetamine Screen,Urine Negative ng/mL (Cutoff=1000); Barbiturate Screen,Urine Negative ng/mL (Cutoff=200); Benzodiazepines Screen,Urine Negative ng/mL (Cutoff=200); Cannabinoid Screen,Urine Negative ng/mL (Cutoff = 50); Cocaine Screen,Urine Negative ng/mL (Cutoff= 300); Opiate Screen,Urine Positive ng/mL (Cutoff=300); Phencyclidine Screen,Urine Negative ng/mL (Cutoff=25)
[2022-03-29 19:18] LABS: Alanine Aminotransferase 8 Units/L (7-52); Albumin 3.1 g/dL (3.5-5.7); Albumin/Globulin Ratio 1.2 (1.1-2.2); Alkaline Phosphatase 59 Units/L (34-104); Aspartate Amino Transferase 9 Units/L (13-39); BUN/Creatinine Ratio 23 (6-26); Bilirubin,Direct 0.1 mg/dL (0.0-0.2); Bilirubin,Indirect 0.2 mg/dL (0.0-1.0); Bilirubin,Total 0.3 mg/dL (0.3-1.0); Blood Urea Nitrogen 16 mg/dL (8-23); Calcium 7.1 mg/dL (8.6-10.3); Carbon Dioxide 40 mEq/L (23-29); Chloride 101 mEq/L (98-107); Ethanol < 10 mg/dL (Less than 10); Globulin 2.6 g/dL (2.4-3.5); Glucose 68 mg/dL (70-105); Osmolality,Calculated 297 (280-300); Potassium 3.4 mEq/L (3.5-5.1); Sodium 144 mEq/L (136-145); Total Protein 5.7 g/dL (6.4-8.9); Troponin I < 0.03 ng/mL (< 0.04)
[2022-03-29] MEDS ORDERED: Furosemide 40 MG/4 ML VIAL IVP ONE (21:16)
[2022-03-29] MEDS ORDERED: *HR* Dextrose 50 % in Water (Syg) 50 ML SYRINGE ONE (22:08)
[2022-03-29] MEDS ORDERED: *HR* Dextrose 50 % in Water (Syg) 50 ML SYRINGE IVP ONE (22:19)
[2022-03-29] MEDS ORDERED: Naloxone 0.4 MG/ML INJ IVP PRN (22:32)
[2022-03-29] MEDS ORDERED: Ondansetron 4 MG/2 ML VIAL IVP PRN (22:32)
[2022-03-29 22:36] LABS: Influenza A PCR Negative (Negative); Influenza B PCR Negative (Negative); Resp. Syncytial Virus PCR Negative (Negative)
[2022-03-29] MEDS ORDERED: D5% in Water 1,000 ML IVC PRN (22:43)
[2022-03-29] MEDS ORDERED: Dextrose Gel 15 GM/37.5 ML TUBE PO PRN ×2 (22:43)
[2022-03-29 22:50] LABS: SARS-CoV-2 by PCR (In House) Negative (Negative)
[2022-03-29] MEDS: *HR* Dextrose 50 % in Water (Syg) 50 ML SYRINGE IVP PRN ×2 (23:30→23:58)
[2022-03-29] MEDS: D10% in Water 500 ML IVC SCH (23:30)
[2022-03-29] MEDS ORDERED: Ipratropium/Albuterol Neb 3 ML IH PRN (23:42)
[2022-03-29] MEDS ORDERED: Iopamidol - 370 500 ML MLS IVP ONE (23:47)
[2022-03-30 00:17] LABS: ABG Base Excess 17 mEq/L (-2 to 3); ABG HCO3 49 mEq/L (21-27); ABG Oxygen Saturation 89 % (95-98); ABG PCO2 107 mmHg (35-45); ABG PH 7.27 pH Units (7.32-7.45); ABG PO2 69 mmHg (85-104); ABG TCO2 > 50 mEq/L (20-26)
[2022-03-30] MEDS: *HR* Dextrose 50 % in Water (Syg) 50 ML SYRINGE IVP PRN (01:26)
[2022-03-30 02:30] LABS: Hematocrit 38.2 % (37.5-50.1); Hemoglobin 11.4 g/dL (12.9-16.9); Mean Corpuscular HGB Conc 29.8 g/dL (31.6-35.5); Mean Corpuscular Hemoglobin 26.8 pg (28.0-33.3); Mean Corpuscular Volume 89.7 fL (83.0-100.0); Mean Platelet Volume 10.5 fL (9.4-12.4); Platelet Count 212 K/mcL (140-400); Red Blood Count 4.26 M/mcL (4.19-5.50); Red Cell Distribution Width 17.7 % (11.5-14.5); White Blood Count 9.5 K/mcL (4.3-11.1)
[2022-03-30 02:50] LABS: VBG HCO3 38 mEq/L (21-27); VBG PCO2 41 mmHg (41-51); VBG PH 7.57 pH Units (7.32-7.42); VBG PO2 198 mmHg (25-50)
[2022-03-30] MEDS: D10% in Water 500 ML IVC SCH (06:13)
[2022-03-30] MEDS: *HR* Enoxaparin 40 MG/0.4 ML SYRINGE SQ SCH (07:00)
[2022-03-30 07:01] LABS: Troponin I < 0.03 ng/mL (< 0.04)
[2022-03-30] MEDS: Lactulose Oral Soln 20 GM/30 ML UDC PO SCH ×2 (10:22→20:08)
[2022-03-30] MEDS: Furosemide 40 MG/4 ML VIAL IVP SCH ×2 (10:23→20:08)
[2022-03-30] MEDS: Nystatin POWDER 30 GM BOTTLE TP SCH ×3 (10:28→20:08)
[2022-03-30] MEDS ORDERED: Ipratropium/Albuterol Neb 3 ML IH PRN (10:58)
[2022-03-30] MEDS ORDERED: Iopamidol - 370 500 ML MLS IVP ONE (11:12)
[2022-03-30] MEDS: predniSONE 20 MG TABLET PO SCH (13:33)
[2022-03-30 14:11] LABS: BUN/Creatinine Ratio 21 (6-26); Blood Urea Nitrogen 15 mg/dL (8-23); Carbon Dioxide 29 mEq/L (23-29); Chloride 95 mEq/L (98-107); Glucose 76 mg/dL (70-105); Osmolality,Calculated 298 (280-300); Potassium 4.5 mEq/L (3.5-5.1); Sodium 144 mEq/L (136-145)
[2022-03-30] MEDS: Ipratropium/Albuterol Neb 3 ML IH SCH ×2 (15:28→21:26)
[2022-03-30] MEDS ORDERED: *HR* HYDROcodone/Acet 7.5/325 mg TABLET PO ONE (20:20)
[2022-03-31 02:54] LABS: Basophils % 0.3 %; Eosinophils # 0.1 K/mcL (0.0-0.6); Eosinophils % 1.2 %; Hematocrit 37.3 % (37.5-50.1); Hemoglobin 10.9 g/dL (12.9-16.9); Immature Granulocytes % 0.4 % (0-4); Lymphocytes # 0.8 K/mcL (0.6-4.6); Lymphocytes % 11.4 %; Mean Corpuscular HGB Conc 29.2 g/dL (31.6-35.5); Mean Corpuscular Hemoglobin 26.9 pg (28.0-33.3); Mean Corpuscular Volume 92.1 fL (83.0-100.0); Mean Platelet Volume 10.7 fL (9.4-12.4); Monocytes # 0.5 K/mcL (0.0-1.3); Monocytes % 6.9 %; Neutrophils # 5.9 K/mcL (1.6-8.9); Platelet Count 169 K/mcL (140-400); Red Blood Count 4.05 M/mcL (4.19-5.50); Red Cell Distribution Width 17.8 % (11.5-14.5); Segmented Neutrophils % 79.8 %; White Blood Count 7.4 K/mcL (4.3-11.1)
[2022-03-31 03:18] LABS: BUN/Creatinine Ratio 17 (6-26); Blood Urea Nitrogen 15 mg/dL (8-23); Calcium 8.6 mg/dL (8.6-10.3); Carbon Dioxide 45 mEq/L (23-29); Chloride 93 mEq/L (98-107); Glucose 200 mg/dL (70-105); Magnesium 2.2 mg/dL (1.6-2.6); Osmolality,Calculated 294 (280-300); Potassium 4.9 mEq/L (3.5-5.1); Sodium 139 mEq/L (136-145)
[2022-03-31] MEDS: Ipratropium/Albuterol Neb 3 ML IH SCH ×4 (03:37→23:05)
[2022-03-31] MEDS: predniSONE 20 MG TABLET PO SCH (10:20)
[2022-03-31] MEDS: Nystatin POWDER 30 GM BOTTLE TP SCH ×3 (10:20→20:11)
[2022-03-31] MEDS: Furosemide 40 MG/4 ML VIAL IVP SCH ×2 (10:20→20:10)
[2022-03-31] MEDS: *HR* Enoxaparin 40 MG/0.4 ML SYRINGE SQ SCH (10:20)
[2022-03-31] MEDS: Lactulose Oral Soln 20 GM/30 ML UDC PO SCH ×2 (10:22→20:09)
[2022-03-31] MEDS: Insulin LISPRO 300 UNITS/3 ML VIAL SUBQ SCH ×4 (10:22→20:10)
[2022-03-31 12:07] LABS: Estimated Average Glucose 100 mg/dl; Hemoglobin A1C 5.1 %
[2022-03-31] MEDS: Nicotine 21 MG PATCH.TD24 TD SCH (21:52)
[2022-03-31] MEDS: *HR* HYDROcodone/Acet 7.5/325 mg TABLET PO PRN (21:52)
[2022-04-01 01:31] LABS: Basophils % 0.2 %; Eosinophils # 0.1 K/mcL (0.0-0.6); Eosinophils % 0.7 %; Hematocrit 36.5 % (37.5-50.1); Hemoglobin 10.9 g/dL (12.9-16.9); Immature Granulocytes % 0.6 % (0-4); Lymphocytes # 1.1 K/mcL (0.6-4.6); Lymphocytes % 13.2 %; Mean Corpuscular HGB Conc 29.9 g/dL (31.6-35.5); Mean Corpuscular Hemoglobin 26.7 pg (28.0-33.3); Mean Corpuscular Volume 89.5 fL (83.0-100.0); Mean Platelet Volume 10.4 fL (9.4-12.4); Monocytes # 0.6 K/mcL (0.0-1.3); Monocytes % 7.4 %; Neutrophils # 6.6 K/mcL (1.6-8.9); Platelet Count 237 K/mcL (140-400); Red Blood Count 4.08 M/mcL (4.19-5.50); Red Cell Distribution Width 17.2 % (11.5-14.5); Segmented Neutrophils % 77.9 %; White Blood Count 8.4 K/mcL (4.3-11.1)
[2022-04-01 02:09] LABS: BUN/Creatinine Ratio 22 (6-26); Blood Urea Nitrogen 20 mg/dL (8-23); Calcium 8.7 mg/dL (8.6-10.3); Carbon Dioxide 44 mEq/L (23-29); Chloride 92 mEq/L (98-107); Glucose 159 mg/dL (70-105); Magnesium 2.1 mg/dL (1.6-2.6); Osmolality,Calculated 292 (280-300); Potassium 4.4 mEq/L (3.5-5.1); Sodium 138 mEq/L (136-145)
[2022-04-01] MEDS: Ipratropium/Albuterol Neb 3 ML IH SCH ×4 (03:47→22:46)
[2022-04-01] MEDS: Lactulose Oral Soln 20 GM/30 ML UDC PO SCH ×2 (09:11→21:07)
[2022-04-01] MEDS: Furosemide 40 MG/4 ML VIAL IVP SCH ×2 (09:12→21:08)
[2022-04-01] MEDS: predniSONE 20 MG TABLET PO SCH (09:12)
[2022-04-01] MEDS: Nicotine 21 MG PATCH.TD24 TD SCH (09:12)
[2022-04-01] MEDS: Nystatin POWDER 30 GM BOTTLE TP SCH ×3 (09:12→21:09)
[2022-04-01] MEDS: *HR* HYDROcodone/Acet 7.5/325 mg TABLET PO PRN ×2 (09:12→21:07)
[2022-04-01] MEDS: Insulin LISPRO 300 UNITS/3 ML VIAL SUBQ SCH ×4 (09:13→21:08)
[2022-04-01] MEDS: *HR* Enoxaparin 40 MG/0.4 ML SYRINGE SQ SCH (09:15)
[2022-04-01] MEDS ORDERED: Benzocaine/Menthol 56 GM AEROSOL SPRAY TP PRN (12:33)
[2022-04-01] MEDS: Methyl Salicylate/Menthol 85 APPL/85 GM TUBE TP PRN (16:57)
[2022-04-01] MEDS: lisinopriL 20 MG TABLET PO SCH (21:07)
[2022-04-02] MEDS: Ipratropium/Albuterol Neb 3 ML IH SCH ×6 (04:18→23:59)
[2022-04-02] MEDS: *HR* Enoxaparin 40 MG/0.4 ML SYRINGE SQ SCH (06:05)
[2022-04-02] MEDS: Insulin LISPRO 300 UNITS/3 ML VIAL SUBQ SCH ×4 (07:05→20:48)
[2022-04-02] MEDS: *HR* HYDROcodone/Acet 7.5/325 mg TABLET PO PRN ×2 (08:19→22:29)
[2022-04-02] MEDS: lisinopriL 20 MG TABLET PO SCH ×2 (09:07→16:55)
[2022-04-02 09:38] LABS: Basophils # 0.1 K/mcL (0.0-0.2); Basophils % 0.5 %; Eosinophils # 0.3 K/mcL (0.0-0.6); Eosinophils % 2.6 %; Hematocrit 40.6 % (37.5-50.1); Hemoglobin 12.2 g/dL (12.9-16.9); Immature Granulocytes % 0.3 % (0-4); Lymphocytes # 1.5 K/mcL (0.6-4.6); Lymphocytes % 15.8 %; Mean Corpuscular Hemoglobin 26.9 pg (28.0-33.3); Mean Corpuscular Volume 89.6 fL (83.0-100.0); Mean Platelet Volume 9.9 fL (9.4-12.4); Monocytes # 0.7 K/mcL (0.0-1.3); Monocytes % 7.4 %; Platelet Count 259 K/mcL (140-400); Red Blood Count 4.53 M/mcL (4.19-5.50); Red Cell Distribution Width 17.3 % (11.5-14.5); Segmented Neutrophils % 73.4 %; White Blood Count 9.5 K/mcL (4.3-11.1)
[2022-04-02 09:49] LABS: BUN/Creatinine Ratio 24 (6-26); Blood Urea Nitrogen 20 mg/dL (8-23); Calcium 9.4 mg/dL (8.6-10.3); Carbon Dioxide 38 mEq/L (23-29); Chloride 95 mEq/L (98-107); Glucose 114 mg/dL (70-105); Magnesium 2.2 mg/dL (1.6-2.6); Osmolality,Calculated 287 (280-300); Phosphorous 3.4 mg/dL (2.7-4.5); Potassium 4.2 mEq/L (3.5-5.1); Sodium 137 mEq/L (136-145)
[2022-04-02] MEDS: Lactulose Oral Soln 20 GM/30 ML UDC PO SCH ×2 (10:02→20:47)
[2022-04-02] MEDS: predniSONE 20 MG TABLET PO SCH (10:03)
[2022-04-02] MEDS: Nicotine 21 MG PATCH.TD24 TD SCH (10:03)
[2022-04-02] MEDS: Nystatin POWDER 30 GM BOTTLE TP SCH ×3 (10:05→20:49)
[2022-04-02] MEDS: MethylPREDNISolone 40 MG/ML VIAL IVP SCH (16:55)
[2022-04-02] MEDS: Furosemide 40 MG TABLET PO SCH (20:46)
[2022-04-03] MEDS: MethylPREDNISolone 40 MG/ML VIAL IVP SCH ×4 (00:38→17:31)
[2022-04-03 03:46] LABS: Basophils % 0.2 %; Hematocrit 39.6 % (37.5-50.1); Hemoglobin 11.9 g/dL (12.9-16.9); Immature Granulocytes % 0.7 % (0-4); Lymphocytes # 0.4 K/mcL (0.6-4.6); Lymphocytes % 4.4 %; Mean Corpuscular HGB Conc 30.1 g/dL (31.6-35.5); Mean Corpuscular Hemoglobin 26.6 pg (28.0-33.3); Mean Corpuscular Volume 88.4 fL (83.0-100.0); Mean Platelet Volume 10.5 fL (9.4-12.4); Monocytes # 0.2 K/mcL (0.0-1.3); Monocytes % 2.7 %; Neutrophils # 7.7 K/mcL (1.6-8.9); Platelet Count 271 K/mcL (140-400); Red Blood Count 4.48 M/mcL (4.19-5.50); Red Cell Distribution Width 16.7 % (11.5-14.5); White Blood Count 8.4 K/mcL (4.3-11.1)
[2022-04-03 03:51] LABS: INR 1.1; Prothrombin Time 12.8 Seconds (9.4-12.1)
[2022-04-03 04:03] LABS: Calcium 9.2 mg/dL (8.6-10.3); Potassium 4.6 mEq/L (3.5-5.1)
[2022-04-03] MEDS: Ipratropium/Albuterol Neb 3 ML IH SCH ×6 (04:21→23:05)
[2022-04-03] MEDS: Insulin LISPRO 300 UNITS/3 ML VIAL SUBQ SCH ×4 (07:30→21:35)
[2022-04-03] MEDS: *HR* Enoxaparin 40 MG/0.4 ML SYRINGE SQ SCH (07:31)
[2022-04-03] MEDS: Lactulose Oral Soln 20 GM/30 ML UDC PO SCH ×2 (07:32→21:39)
[2022-04-03] MEDS: Aspirin Enteric Coated 81 MG Tablet PO SCH (07:32)
[2022-04-03] MEDS: Furosemide 40 MG TABLET PO SCH ×2 (07:32→17:31)
[2022-04-03] MEDS: lisinopriL 20 MG TABLET PO SCH (07:33)
[2022-04-03] MEDS: Nicotine 21 MG PATCH.TD24 TD SCH (08:58)
[2022-04-03] MEDS: Nystatin POWDER 30 GM BOTTLE TP SCH ×3 (08:58→21:39)
[2022-04-03] MEDS: Ringers Solution, Lactated 1,000 ML IVC SCH ×2 (10:35→17:42)
[2022-04-03] MEDS ORDERED: *HR* Rocuronium Bromide 50 MG/5 ML VIAL ONE (10:46)
[2022-04-03] MEDS ORDERED: *HR* Metoprolol 5 MG/5 ML VIAL IVP ONE (10:47)
[2022-04-03] MEDS: *HR* HYDROcodone/Acet 7.5/325 mg TABLET PO PRN (21:41)
[2022-04-04] MEDS: MethylPREDNISolone 40 MG/ML VIAL IVP SCH ×3 (00:53→11:35)
[2022-04-04] MEDS: Ipratropium/Albuterol Neb 3 ML IH SCH ×6 (03:00→23:15)
[2022-04-04] MEDS: *HR* Enoxaparin 40 MG/0.4 ML SYRINGE SQ SCH (06:12)
[2022-04-04] MEDS: *HR* HYDROcodone/Acet 7.5/325 mg TABLET PO PRN ×2 (06:15→20:09)
[2022-04-04] MEDS: Methyl Salicylate/Menthol 85 APPL/85 GM TUBE TP PRN (06:16)
[2022-04-04] MEDS ORDERED: Nitroglycerin 0.4 MG TAB.SUBL SL PRN (07:44)
[2022-04-04] MEDS: Multivit/Ca/Min/Fe/FA 1 TAB TABLET PO SCH (08:19)
[2022-04-04] MEDS: Furosemide 40 MG TABLET PO SCH ×2 (08:19→17:25)
[2022-04-04] MEDS: Aspirin Enteric Coated 81 MG Tablet PO SCH (08:19)
[2022-04-04] MEDS: lisinopriL 20 MG TABLET PO SCH (08:19)
[2022-04-04] MEDS: Cholecalciferol (D-3) 1,000 UNIT (25MCG) TABLET PO SCH (08:20)
[2022-04-04] MEDS: Nicotine 21 MG PATCH.TD24 TD SCH (08:20)
[2022-04-04] MEDS: polyethylene glycoL 3350 17 GM POWD.PACK PO SCH (08:20)
[2022-04-04] MEDS: Lactulose Oral Soln 20 GM/30 ML UDC PO SCH ×2 (08:20→20:08)
[2022-04-04] MEDS: Insulin LISPRO 300 UNITS/3 ML VIAL SUBQ SCH ×4 (08:21→20:15)
[2022-04-04] MEDS: Nystatin POWDER 30 GM BOTTLE TP SCH ×3 (08:21→20:11)
[2022-04-04 08:41] LABS: Basophils % 0.1 %; Eosinophils % 0.1 %; Hematocrit 40.9 % (37.5-50.1); Hemoglobin 12.5 g/dL (12.9-16.9); Immature Granulocytes % 0.7 % (0-4); Lymphocytes # 0.5 K/mcL (0.6-4.6); Mean Corpuscular HGB Conc 30.6 g/dL (31.6-35.5); Mean Corpuscular Hemoglobin 26.9 pg (28.0-33.3); Mean Platelet Volume 10.3 fL (9.4-12.4); Monocytes # 0.3 K/mcL (0.0-1.3); Monocytes % 2.9 %; Neutrophils # 9.2 K/mcL (1.6-8.9); Platelet Count 288 K/mcL (140-400); Red Blood Count 4.65 M/mcL (4.19-5.50); Red Cell Distribution Width 16.8 % (11.5-14.5); Segmented Neutrophils % 91.2 %
[2022-04-04] MEDS: Ringers Solution, Lactated 1,000 ML IVC SCH (08:49)
[2022-04-04 08:50] LABS: BUN/Creatinine Ratio 25 (6-26); Blood Urea Nitrogen 22 mg/dL (8-23); Calcium 9.5 mg/dL (8.6-10.3); Carbon Dioxide 37 mEq/L (23-29); Chloride 96 mEq/L (98-107); Glucose 188 mg/dL (70-105); Osmolality,Calculated 294 (280-300); Potassium 4.3 mEq/L (3.5-5.1); Sodium 138 mEq/L (136-145)
[2022-04-04 08:53] LABS: % Iron Saturation 5 % (20-55); Iron 26 mcg/dL (65-175); Transferrin 392 mg/dL (203-362)
[2022-04-04 09:10] LABS: Ferritin 16 ng/mL (20-250)
[2022-04-04 09:16] LABS: Folate 8.2 ng/mL (3.0-16.0)
[2022-04-04] MEDS ORDERED: Iron Sucrose Complex 250 MG in 0.9 % Sodium Chloride 250 ML IVPB SCH (10:45)
[2022-04-04] MEDS: Clotrimazole 1% CRM 15 GM TUBE TP SCH ×2 (11:03→20:19)
[2022-04-04] MEDS ORDERED: Pfizer Covid-19 Vaccine 30MCG/0.3ML IM ONE (11:42)
[2022-04-04] MEDS ORDERED: *HR* Labetalol 20 MG/4 ML SYRINGE IVP PRN (16:13)
[2022-04-04] MEDS: carvediloL 6.25 MG TABLET PO SCH (17:25)
[2022-04-05 02:55] LABS: Basophils % 0.1 %; Eosinophils % 0.1 %; Immature Granulocytes % 0.4 % (0-4); Lymphocytes % 8.8 %; Mean Corpuscular HGB Conc 29.3 g/dL (31.6-35.5); Mean Corpuscular Hemoglobin 26.7 pg (28.0-33.3); Mean Corpuscular Volume 91.3 fL (83.0-100.0); Mean Platelet Volume 10.7 fL (9.4-12.4); Monocytes # 0.8 K/mcL (0.0-1.3); Monocytes % 7.4 %; Neutrophils # 9.3 K/mcL (1.6-8.9); Platelet Count 291 K/mcL (140-400); Red Blood Count 4.49 M/mcL (4.19-5.50); Red Cell Distribution Width 16.9 % (11.5-14.5); Segmented Neutrophils % 83.2 %; White Blood Count 11.1 K/mcL (4.3-11.1)
[2022-04-05 03:19] LABS: BUN/Creatinine Ratio 31 (6-26); Blood Urea Nitrogen 28 mg/dL (8-23); Calcium 9.1 mg/dL (8.6-10.3); Carbon Dioxide 34 mEq/L (23-29); Chloride 99 mEq/L (98-107); Glucose 193 mg/dL (70-105); Osmolality,Calculated 303 (280-300); Potassium 4.3 mEq/L (3.5-5.1); Sodium 141 mEq/L (136-145)
[2022-04-05] MEDS: Ipratropium/Albuterol Neb 3 ML IH SCH ×4 (03:45→15:38)
[2022-04-05] MEDS: *HR* Enoxaparin 40 MG/0.4 ML SYRINGE SQ SCH (06:06)
[2022-04-05 07:45] VITALS: TEMP 98.1
[2022-04-05] MEDS: Furosemide 40 MG TABLET PO SCH (08:16)
[2022-04-05] MEDS: Cholecalciferol (D-3) 1,000 UNIT (25MCG) TABLET PO SCH (08:16)
[2022-04-05] MEDS: carvediloL 6.25 MG TABLET PO SCH (08:16)
[2022-04-05] MEDS: Lactulose Oral Soln 20 GM/30 ML UDC PO SCH (08:16)
[2022-04-05] MEDS: Multivit/Ca/Min/Fe/FA 1 TAB TABLET PO SCH (08:16)
[2022-04-05] MEDS: polyethylene glycoL 3350 17 GM POWD.PACK PO SCH (08:16)
[2022-04-05] MEDS: Aspirin Enteric Coated 81 MG Tablet PO SCH (08:16)
[2022-04-05] MEDS: lisinopriL 20 MG TABLET PO SCH (08:16)
[2022-04-05] MEDS: Nystatin POWDER 30 GM BOTTLE TP SCH ×2 (08:17→16:44)
[2022-04-05] MEDS: Insulin LISPRO 300 UNITS/3 ML VIAL SUBQ SCH ×2 (08:18→11:34)
[2022-04-05] MEDS: Clotrimazole 1% CRM 15 GM TUBE TP SCH (08:18)
[2022-04-05] MEDS: Nicotine 21 MG PATCH.TD24 TD SCH (08:18)
[2022-04-05 11:07] VITALS: BP 132/63; PULSE 91; O2SAT 95
[2022-04-05] MEDS: *HR* HYDROcodone/Acet 7.5/325 mg TABLET PO PRN (11:35)
== END 2022-04-05 17:36 | DRG 637 ==
LOC: EMEROOARM 15:45 → 2NENU 15:45 → SUATTDRO 21:56 → 2NENU 23:05
PROVIDERS: ADMIT Internal Medicine; ATTEND Pharmacist
PROC: ENDOLBX (2022-04-03 10:00)